=== PATIENT | female | born 1940 | race American Indian/Alaskan Native ===

== ENCOUNTER 2017-03-20 08:30 | Emergency (ER) | payer MEDICARE ==
[2017-03-20 10:01] VITALS: BP 164/79
[2017-03-20 10:07] LABS: Basophils % (Auto) 0.5 % (0.0-1.8); Eosinophils % (Auto) 3.1 % (0.0-4.3); Hematocrit 37.1 % (30.3-42.9); Mean Corpuscular HGB Conc 32 % (30-34); Mean Corpuscular Hemoglobin 28 pg (28-32); Mean Corpuscular Volume 87 fl (79-97); Platelet Count 300 K/mm3 (140-440); Red Blood Count 4.25 M/mm3 (3.65-5.03); Red Cell Distribution Width 15.2 % (13.2-15.2); White Blood Count 7.9 K/mm3 (4.5-11.0)
--- NOTE | 2017-03-20 10:15 | Emergency Department Report ---
HPI - General Chief Complaint: Fall Time Seen by Provider: 03/20/17 09:30 - HPI HPI: This is a 77-year-old Afro-[place] female presents emergency department by EMS from home with complaint of pain to the entire left side of her body. The patient was recently at [facility] where it appears that she was diagnosed with a stroke but had presented with similar complaints. The patient also says that she had a fall on Sunday, 4 days ago, while she was at her daughter's house. At that point she tripped or had some weakness going down stairs and fell about 6 stairs down. She does not offer up the complaint of headache, but when asked if she hurt her head at that time she says it has been hurting. She denies any vision change, slurred speech or any other obvious neurological deficits. She did not take anything for her symptoms prior to presentation. Her primary care doctor is Dr. Langley. She denies any shortness of breath, nausea, vomiting, fever. 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 Stimulation Implant Pump [place] [address] Coello for bowel control - Social History Smoking Status: Unknown if ever smoked Substance Use Type: None - Medications Home Medications: Home Medications Medication Instructions Recorded Confirmed Last Taken Type Pantoprazole [Protonix TAB] 40 mg PO QDAY 07/07/13 06/27/14 06/27/14 11:00 History Valsartan [Diovan] 320 mg PO QDAY 07/07/13 06/27/14 06/27/14 11:00 History glipiZIDE [glipiZIDE ER] 10 mg PO QDAY 07/07/13 06/27/14 06/27/14 11:00 History metFORMIN [Glucophage] 500 mg PO BID 07/07/13 06/27/14 06/27/14 11:00 History Aspirin [Aspirin TAB] 325 mg PO QDAY 10/08/13 06/27/14 06/27/14 11:00 History Chlorthalidone 25 mg PO QDAY 10/08/13 06/27/14 06/27/14 11:00 History Pravastatin Sodium 40 mg PO QDAY 10/08/13 06/27/14 06/27/14 11:00 History Venlafaxine [Effexor] 75 mg PO QDAY 10/08/13 06/27/14 06/27/14 11:00 History HYDROcodone/APAP 5-325 [[place] 1 each PO Q6HR PRN #20 tablet 10/13/13 06/27/14 11:00 Rx 5-325 mg TAB] Docusate Sodium [Colace] 100 mg PO BID PRN #20 capsule 06/28/14 Unknown Rx HYDROcodone/APAP 5-325 [[place] 1 each PO Q6HR PRN #20 tablet 06/28/14 Unknown Rx 5/325] ED Review of Systems ROS: Stated complaint: LT SIDE PAIN Other details as noted in HPI Comment: All other systems reviewed and negative Constitutional: denies: chills, fever Eyes: denies: eye pain, eye discharge, vision change ENT: denies: ear pain, throat pain Respiratory: denies: cough, shortness of breath Cardiovascular: denies: palpitations, edema Gastrointestinal: denies: abdominal pain, nausea, diarrhea Genitourinary: denies: urgency, dysuria, discharge Musculoskeletal: arthralgia, myalgia Skin: denies: rash, lesions Neurological: headache. denies: numbness Physical Exam - Physical Exam Vital Signs: Vital Signs 03/20/17 03/20/17 03/20/17 09:06 09:59 10:00 Temperature 100.0 F H 98.9 F Pulse Rate 74 74 Respiratory 20 16 16 Rate Blood Pressure 170/84 Blood Pressure 164/79 [Left] O2 Sat by Pulse 92 96 96 Oximetry Physical Exam: GENERAL: The patient is well-developed well-nourished. HEENT: Normocephalic. Atraumatic. Extraocular motions are intact. Patient has moist mucous membranes. Pupils equal reactive to light bilaterally. NECK: Supple. Trachea is midline. CHEST/LUNGS: Clear to auscultation. There is no respiratory distress noted. HEART/CARDIOVASCULAR: Regular. There is no tachycardia. There is no gallop rub or murmur. ABDOMEN: Abdomen is soft, nontender. Patient has normal bowel sounds. There is no abdominal distention. SKIN: Skin is warm and dry. NEURO: The patient is awake, alert, and oriented. The patient is cooperative. The patient has no focal neurologic deficits. The patient has normal speech. MUSCULOSKELETAL: Unable to reproduce patient's that arm and left leg tenderness to palpation. No obvious deformity. There is no limitation range of motion. There is no evidence of acute injury. Radial pulses +2 over 4 bilaterally. Cap refill less than 2 seconds. ED Course Vital Signs 03/20/17 03/20/17 03/20/17 09:06 09:59 10:00 Temperature 100.0 F H 98.9 F Pulse Rate 74 74 Respiratory 20 16 16 Rate Blood Pressure 170/84 Blood Pressure 164/79 [Left] O2 Sat by Pulse 92 96 96 Oximetry ED Medical Decision Making - Lab Data Result diagrams: 03/20/17 09:50 03/20/17 09:50 - Radiology Data Radiology results: report reviewed, image reviewed interpreted by me: Chest x-ray did not show any acute process. Heart is normal shape and size. No effusions. No pneumothorax. No signs of pneumonia seen. X-ray of the left humerus, left femur and left tib-fib do not show any fractures , dislocations or any acute processes. CT of the head does not show any acute process including no hemorrhage, mass, shift, diffuse edema or skull fracture. CT of the cervical spine does not show any fracture, subluxation or any acute process. - Medical Decision Making This is a 77-year-old female presents to the emergency department with complaint of left shoulder and arm pain as well as left leg pain. She denies any chest pain, shortness of breath, slurred speech or any neurological deficits. The patient does admit to a fall 4 days ago in which she hit her head but did not have any loss of consciousness. She complains of an occasional headache. A CT of the head and cervical spine were done that does not show any fracture, dislocation or any acute process. X-rays were done of the left humerus, left femur and left tib-fib but also did not show any acute process including no fracture, dislocation or any acute process. Labs were done that did not show any signs of leukocytosis, electrolyte abnormalities, renal insufficiency, glucose abnormalities. Urinalysis does not show any urinary tract infection. Negative troponin. The patient says that she walks with walker so she was given a walker and was able to ambulate around the emergency department without any instability. We spoke to the patient's son who is the DURABLE POWER OF RECREATION ATTENDANT SUPERVISOR. He says that the patient has been exhibiting some signs of dementia and he has the intent of getting her worked up to look into the cause of her dementia and possible Alzheimer's. He says that the police have told him and the patient's daughter that the patient should not be driving. The patient is used to being independent but they are doing what they can to keep her from driving as it is not safe and she does not appear to be dealing with this well. He does get her to all of her medical appointments and helps her to take care of errands that need to be run. He also says that the patient will sometimes act out at home and sometimes says she is unable to walk or move and then when she gets angry she will get up and storm out of the house. The patient herself says that she does not like living with her son as he will not give her car keys despite the fact that she says she does not want to drive. She also says that he brings home when the people and she has concern that they will "give away my bed." The case specialist was involved and also spoke with the patient's son. The son says that he lose his mother very much and has no intention of placing her in any intermediate or extended care facility at this time. He says he would like the patient to be sent back home to him and he will continue to care for her but he agrees to send her back to the emergency department with any acute distress. - Differential Diagnosis fracture, contusion, dementia, malingering, CVA Critical Care Time: No Critical care attestation.: If time is entered above; I have spent that time in minutes in the direct care of this critically ill patient, excluding procedure time. ED Disposition Clinical Impression: Left arm pain, Left leg pain Fall Qualifiers: Encounter type: initial encounter Qualified Code(s): W19.XXXA - Unspecified fall, initial encounter Left shoulder pain Qualifiers: Chronicity: acute Qualified Code(s): M25.512 - Pain in left shoulder Hypertension Qualifiers: Hypertension type: essential hypertension Qualified Code(s): I10 - Essential ( primary) hypertension Disposition: DISCHARGED TO HOME OR SELFCARE Is pt being admited?: No Condition: Stable Instructions: Hypertension (ED) Additional Instructions: Please follow-up with your primary care doctor in the next few days. I did do a referral for a local orthopedist, Dr. Bales, encase she would like to follow- up regarding your left arm and leg pains. Return to the emergency department with any worsening of her symptoms or any acute distress. Referrals: MICHAEL ALANIZ MD [Primary Care Provider] - 3-5 Days AMBROCIO BALES MD [Staff Physician] - 3-5 Days Time of Disposition: 14:03
[2017-03-20 10:29] LABS: Alanine Aminotransferase 11 units/L (7-56); Albumin 3.7 g/dL (3.9-5); Alkaline Phosphatase 77 units/L (35-129); Anion Gap 17 mmol/L; Blood Urea Nitrogen 10 mg/dL (7-17); Calcium 9.3 mg/dL (8.4-10.2); Carbon Dioxide 28 mmol/L (22-30); Chloride 97.4 mmol/L (98-107); Glucose 146 mg/dL (65-100); Potassium 3.8 mmol/L (3.6-5.0); Sodium 139 mmol/L (137-145); Total Protein 7.4 g/dL (6.3-8.2)
--- NOTE | 2017-03-20 10:39 | Cat Scan Report ---
CT scan of cervical spine: History: Fall. Findings: Normal height of vertebral bodies and intervertebral disc is sclerotic articular surfaces with osteophyte at C4-5, C5-C6 and C6-C7 suggestive cervical spondylosis. No evidence of acute fracture. Normal prevertebral soft tissue. Impression: Cervical spondylosis. No evidence of acute fracture. The
--- NOTE | 2017-03-20 10:41 | Cat Scan Report ---
CT scan of head without contrast: Compared to 06/28/14. History: Fall. Findings: Ventricles are normal in size and midline in location. Periventricular area of low attenuation. Bibasilar ganglia calcification. Focal area of low attenuation right basal ganglia suggestive of chronic lacunar infarct. No evidence of acute ischemia, hemorrhage or mass. No extra axial fluid collection. Normal brainstem and cerebellum. Normal sinuses and mastoid air cells. Impression: Small vessel ischemic changes. No acute intracranial abnormality.
--- NOTE | 2017-03-20 11:33 | XRay Report ---
LEFT TIBIA/FIBULA: History: Left leg pain. AP and lateral views of the left tibia/fibula demonstrate normal mineralization and contours for this patient's age. No destructive changes are noted and the adjacent soft tissues are normal. IMPRESSION: Normal left tibia/fibula.
--- NOTE | 2017-03-20 11:33 | XRay Report ---
AP CHEST: HISTORY: Chest pain and Mild cardiomegaly and borderline pulmonary venous congestion are identified. The lungs are generally clear. No evidence for pneumonia, CHF or pneumothorax. The bony structures are intact. IMPRESSION: Mild cardiomegaly.
--- NOTE | 2017-03-20 11:33 | XRay Report ---
LEFT HUMERUS: History: Left arm pain. AP and lateral views of the humerus demonstrate normal mineralization and contours for this patient's age. No destructive changes are noted and the adjacent soft tissues are normal. IMPRESSION: Normal left humerus.
--- NOTE | 2017-03-20 11:34 | XRay Report ---
LEFT FEMUR: History: Left leg pain. AP and lateral views of the femur demonstrate normal mineralization and contours for this patient's age. No destructive changes are noted and the adjacent soft tissues are normal. IMPRESSION: Normal left femur.
[2017-03-20] MEDS ORDERED: TORADOL IV ONE (11:42)
[2017-03-20 12:09] LABS: Bilirubin,Urine NEG (Negative); Blood,Urine NEG (Negative); Ketones,Urine NEG (Negative); Leukocyte Esterase,Urine NEG (Negative); Nitrite,Urine NEG (Negative); Protein,Urine <15 mg/dL mg/dL (Negative); Urobilinogen,Urine < 2.0 mg/dL (<2.0); WBC,Urine < 1.0 /HPF (0.0-6.0)
== END 2017-03-20 20:20 | disposition home or self-care (01) ==
LOC: ED 08:30
DX: M25.512 Pain in left shoulder (principal); M79.605 Pain in left leg; I10 Essential (primary) hypertension; M79.602 Pain in left arm; K21.9 Gastro-esophageal reflux disease without esophagitis; E11.9 Type 2 diabetes mellitus without complications; W10.8XXA Fall (on) (from) other stairs and steps, initial encounter; Y93.89 Activity, other specified; Y99.8 Other external cause status; Y92.89 Other specified places as the place of occurrence of the external cause; Z86.73 Personal history of transient ischemic attack (TIA), and cerebral infarction without residual deficits; J44.9 Chronic obstructive pulmonary disease, unspecified; Z90.710 Acquired absence of both cervix and uterus
CPT/HCPCS: 36415; 70450; 71010; 72125; 73060; 73552; 73590; 80053; 81001; 82553; 84443; 84484; 85025; 96374; 99285; J1885

== ENCOUNTER 2018-01-31 12:07 | Emergency (ER) | payer MEDICARE ==
[2018-01-31] MEDS ORDERED: ULTRAM PO ONE (14:00)
[2018-01-31 14:06] LABS: Hematocrit 37.7 % (30.3-42.9); Hemoglobin 12.5 gm/dl (10.1-14.3); Mean Corpuscular HGB Conc 33 % (30-34); Mean Corpuscular Hemoglobin 29 pg (28-32); Mean Corpuscular Volume 86 fl (79-97); Platelet Count 268 K/mm3 (140-440); Red Blood Count 4.38 M/mm3 (3.65-5.03); Red Cell Distribution Width 15.9 % (13.2-15.2)
--- NOTE | 2018-01-31 14:06 | Emergency Department Report ---
HPI - General Chief Complaint: Dizziness Time Seen by Provider: 01/31/18 13:46 - HPI HPI: Room 19 The patient is 78-year-old female presenting with chief complaint of fall. The patient states she fell out of bed this morning and now has pain of the left thigh. Patient denies loss of consciousness or headache. Family reported the patient complained of dizziness earlier. Patient denies any other complaints The patient's daughter arrives and provides further history. States the patient has had frequent intermittent outbursts which includes screaming in the morning and sometimes attempting to run out of the house. The daughter states she is requesting assistance with her mother's behavior Location: [See above] Duration: Constant since this morning Quality: Pain Severity: Moderate Modifying factors: [see above] Context: [see above] Mode of transportation: [not driving] ED Past Medical Hx - Past Medical History Hx Hypertension: Yes Hx CVA: Yes (1998) Hx Diabetes: Yes (Pt has had diabetes for more than 20 years.) Hx GERD: Yes Hx COPD: Yes Additional medical history: Bronchitis - Surgical History Hx Breast Surgery: Yes (BREAST REDUCTION IN 1994) Additional Surgical History: HYSTERECTOMY. Stimulation Implant Pump [place] [address] Coello for bowel control - Family History Family history: no significant - Social History Smoking Status: Never Smoker Substance Use Type: None - Medications Home Medications: Home Medications Medication Instructions Recorded Confirmed Last Taken Type Chlorthalidone 25 mg PO QDAY 10/08/13 06/27/14 06/27/14 11:00 History Pravastatin Sodium 40 mg PO QDAY 10/08/13 06/27/14 06/27/14 11:00 History Docusate Sodium [Colace CAP] 100 mg PO BID PRN #20 capsule 06/28/14 Unknown Rx Acetaminophen [Acetaminophen TAB] 650 mg PO Q4H PRN #30 tablet 03/28/17 Unknown Rx Aspirin [Aspirin TAB] 325 mg PO QDAY #30 03/28/17 06/27/14 06/27/14 11:00 Rx HYDROcodone/APAP 5-325 [[place] 1 each PO Q6HR PRN #20 tablet 03/28/17 Unknown Rx 5-325 mg TAB] Pantoprazole [Protonix TAB] 40 mg PO QDAY #30 03/28/17 06/27/14 06/27/14 11:00 Rx Valsartan [Diovan] 320 mg PO QDAY #30 03/28/17 06/27/14 06/27/14 11:00 Rx Venlafaxine [Effexor] 75 mg PO QDAY #30 03/28/17 06/27/14 06/27/14 11:00 Rx glipiZIDE [glipiZIDE ER] 10 mg PO QDAY #30 03/28/17 06/27/14 06/27/14 11:00 Rx metFORMIN [Glucophage] 500 mg PO BID #60 03/28/17 06/27/14 06/27/14 11:00 Rx LORazepam [Ativan] 0.5 mg PO BID PRN #10 tab 01/31/18 Unknown Rx ED Review of Systems ROS: Stated complaint: AMS Other details as noted in HPI Constitutional: denies: fever Musculoskeletal: arthralgia, myalgia Neurological: denies: headache Physical Exam - Physical Exam Vital Signs: Vital Signs 01/31/18 01/31/18 01/31/18 12:48 13:00 13:01 Temperature Pulse Rate 78 75 Respiratory 14 16 Rate Blood Pressure 148/71 [Right] O2 Sat by Pulse 92 100 100 Oximetry 01/31/18 01/31/18 13:04 13:19 Temperature 97.9 F Pulse Rate Respiratory 12 Rate Blood Pressure [Right] O2 Sat by Pulse 100 Oximetry Physical Exam: GENERAL: The patient is well-developed well-nourished female lying on stretcher not appearing to be in acute distress. [] HEENT: Normocephalic. Atraumatic. Extraocular motions are intact. Patient has moist mucous membranes. NECK: Supple. Trachea midline CHEST/LUNGS: Clear to auscultation. There is no respiratory distress noted. HEART/CARDIOVASCULAR: Regular. There is no tachycardia. There is no gallop rub or murmur. ABDOMEN: Abdomen is soft, nontender. Patient has normal bowel sounds. There is no abdominal distention. SKIN: There is no rash. There is no edema. There is no diaphoresis. NEURO: The patient is awake and alert. The patient is cooperative. The patient has residual left-sided weakness from previous CVA otherwise cranial nerves II through XII grossly intact. The patient has normal speech MUSCULOSKELETAL: There is tenderness to palpation of the left thigh and left lower leg ED Course Vital Signs 01/31/18 01/31/18 01/31/18 12:48 13:00 13:01 Temperature Pulse Rate 78 75 Respiratory 14 16 Rate Blood Pressure 148/71 [Right] O2 Sat by Pulse 92 100 100 Oximetry 01/31/18 01/31/18 13:04 13:19 Temperature 97.9 F Pulse Rate Respiratory 12 Rate Blood Pressure [Right] O2 Sat by Pulse 100 Oximetry - Consultations Consultation #1: 01/31/18 18:05 Case discussed with mental health rural health consultant (Angelique)- has discussed care with patient and patient's mother and patient given referral for the [facility] ED Medical Decision Making - Lab Data Result diagrams: 01/31/18 13:56 01/31/18 13:56 - Radiology Data Radiology results: report reviewed (CT head, CT cervical spine), image reviewed (CT head, CT cervical spine, left femur x-ray, left tib-fib x-ray) interpreted by me: Left femur x-ray-no acute fracture Left tib-fib x-ray-no acute fracture [facility] [address] [place] [address] Cat Scan Report Signed Patient: JEFF BLUNT MR#: [id number] : 1940 Acct:[id number] Age/Sex: 78 / F ADM Date: 01/31/18 Loc: ED Attending Dr: Ordering Physician: MYRNA LUCAS MD Date of Service: 01/31/18 Procedure(s): CT head/brain wo con Accession Number(s): [id number] cc: MYRNA LUCAS MD CT HEAD WITHOUT CONTRAST INDICATION: Dizziness, fall from bed. COMPARISON: March 2017. FINDINGS: Noncontrast head CT demonstrates stable, age-appropriate ventricles and sulci with moderate to severe periventricular and white matter hypodensities with few small ganglionic lacunar infarcts measuring up to 6 mm on the left on axial image 20, series 2. No definite acute infarct, hemorrhage, mass effect or midline shift. No abnormal extra axial fluid collections. Benign bilateral basal ganglia calcifications. Stable posterior fossa including a 4 mm lacunar infarct in the joaqu[place] on the right, axial image 15. Preserved basilar cisterns. Normal eye globes. Mild right frontal sinus mucosal thickening again noted. Clear remainder imaged paranasal sinuses and mastoid air cells. Intact calvarium. Normal scalp. Extensive atherosclerotic ICA and vertebral artery calcifications. Few missing teeth. CONCLUSION: No definite acute intracranial CT abnormality with stable age appropriate atrophy, extensive microvascular changes and other findings, as detailed above. Thank you for the opportunity to participate in this patient's care. Transcribed By: CHRISTEL Dictated By: LAZARO BROOKE MD Electronically Authenticated By: LAZARO BROOKE MD Signed Date/Time: 01/31/18 1504 DD/ 1458 TD/TT: 01/31/18 1504 [facility] [address] [place] [address] Cat Scan Report Signed Patient: JEFF BLUNT MR#: [id number] : 1940 Acct:[id number] Age/Sex: 78 / F ADM Date: 01/31/18 Loc: ED Attending Dr: Ordering Physician: MYRNA LUCAS MD Date of Service: 01/31/18 Procedure(s): CT cervical spine wo con Accession Number(s): [id number] cc: MYRNA LUCAS MD CT CERVICAL SPINE WITHOUT CONTRAST INDICATION: Fall from bed, dizziness. COMPARISON: 03/24/2017. FINDINGS: Noncontrast axial, sagittal and coronal CT reconstructions through the cervical spine demonstrate normal imaged posterior fossa. Intact craniocervical articulation, dens, prevertebral soft tissues and the posterior elements. Normal vertebral body stature alignment and disc heights. Mild degenerative spurring, more so from C4-C7. Assessment of the spinal canal itself compromised from C5 inferiorly due to artifact from shoulder soft tissues. No large disc protrusion. Normal thyroid. Mild bilateral upper lobe scarring. Possible osteopenia. Atherosclerotic vascular calcifications. CONCLUSION: No acute cervical spine CT abnormality with few other findings, as above. Please correlate. Thank you for the opportunity to participate in this patient's care. Transcribed By: RS Dictated By: LAZARO BROOKE MD Electronically Authenticated By: LAZARO BROOKE MD Signed Date/Time: 01/31/18 1509 DD/ 1505 TD/TT: 01/31/18 1509 - Differential Diagnosis closed head injury, hip fracture, hip contusion Critical care attestation.: If time is entered above; I have spent that time in minutes in the direct care of this critically ill patient, excluding procedure time. ED Disposition Clinical Impression: Dementia, Contusion of left thigh Disposition: DC-01 TO HOME OR SELFCARE Is pt being admited?: No Does the pt Need Aspirin: No Condition: Stable Instructions: Dementia (ED) Additional Instructions: Return to the emergency department immediately should you develop worsening symptoms, fever, inability to tolerate food or liquid or any other concerns. Prescriptions: LORazepam [Ativan] 0.5 mg PO BID PRN #10 tab PRN Reason: Agitation Referrals: PRIMARY CARE, [Primary Care Provider] - 3-5 Days [facility] [Other] - 3-5 Days Time of Disposition: 18:05
[2018-01-31 14:29] LABS: BUN/Creatinine Ratio 16; Blood Urea Nitrogen 11 mg/dL (7-17); Calcium 9.4 mg/dL (8.4-10.2); Hemolysis Index 13
--- NOTE | 2018-01-31 15:10 | Cat Scan Report ---
CT HEAD WITHOUT CONTRAST INDICATION: Dizziness, fall from bed. COMPARISON: March 2017. FINDINGS: Noncontrast head CT demonstrates stable, age-appropriate ventricles and sulci with moderate to severe periventricular and white matter hypodensities with few small ganglionic lacunar infarcts measuring up to 6 mm on the left on axial image 20, series 2. No definite acute infarct, hemorrhage, mass effect or midline shift. No abnormal extra axial fluid collections. Benign bilateral basal ganglia calcifications. Stable posterior fossa including a 4 mm lacunar infarct in the joaquín on the right, axial image 15. Preserved basilar cisterns. Normal eye globes. Mild right frontal sinus mucosal thickening again noted. Clear remainder imaged paranasal sinuses and mastoid air cells. Intact calvarium. Normal scalp. Extensive atherosclerotic ICA and vertebral artery calcifications. Few missing teeth. CONCLUSION: No definite acute intracranial CT abnormality with stable age appropriate atrophy, extensive microvascular changes and other findings, as detailed above. Thank you for the opportunity to participate in this patient's care.
--- NOTE | 2018-01-31 15:14 | Cat Scan Report ---
CT CERVICAL SPINE WITHOUT CONTRAST INDICATION: Fall from bed, dizziness. COMPARISON: 03/24/2017. FINDINGS: Noncontrast axial, sagittal and coronal CT reconstructions through the cervical spine demonstrate normal imaged posterior fossa. Intact craniocervical articulation, dens, prevertebral soft tissues and the posterior elements. Normal vertebral body stature alignment and disc heights. Mild degenerative spurring, more so from C4-C7. Assessment of the spinal canal itself compromised from C5 inferiorly due to artifact from shoulder soft tissues. No large disc protrusion. Normal thyroid. Mild bilateral upper lobe scarring. Possible osteopenia. Atherosclerotic vascular calcifications. CONCLUSION: No acute cervical spine CT abnormality with few other findings, as above. Please correlate. Thank you for the opportunity to participate in this patient's care.
[2018-01-31 17:50] VITALS: BP 149/79
--- NOTE | 2018-01-31 18:25 | XRay Report ---
FINAL REPORT EXAM: XR FEMUR 2+V LT HISTORY: pain after fall TECHNIQUE: AP and lateral portable views of the left femur PRIORS: None. FINDINGS: There is no evidence for acute fracture or dislocation. No soft tissue swelling or radiopaque foreign bodies are seen. Vascular calcification in the posterior soft tissues is noted. Bony mineralization is normal and joint spaces are maintained. Large spurs are present anteriorly off the superior and inferior patella. IMPRESSION: No acute bony or soft tissue abnormality noted. Extensive spurs off the anterior aspect of the patella.
--- NOTE | 2018-01-31 18:26 | XRay Report ---
FINAL REPORT EXAM: XR TIBIA FIBULA 2V LT HISTORY: pain after fall TECHNIQUE: AP and lateral portable views of the left tibia and fibula PRIORS: None. FINDINGS: There is no evidence for acute fracture or dislocation. No soft tissue swelling or radiopaque foreign bodies are seen. Vascular calcifications in the posterior soft tissues are noted. Bony mineralization is normal and joint spaces are maintained. Large spurs are present off the anterior aspect of the patella and off the posterior and plantar aspects of the calcaneus. IMPRESSION: No acute bony or soft tissue abnormality noted.
== END 2018-01-31 18:25 | disposition home or self-care (01) ==
LOC: ED 12:07
DX: S70.12XA Contusion of left thigh, initial encounter (principal); W18.30XA Fall on same level, unspecified, initial encounter; Y93.89 Activity, other specified; Y92.89 Other specified places as the place of occurrence of the external cause; Y99.8 Other external cause status; I10 Essential (primary) hypertension; K21.9 Gastro-esophageal reflux disease without esophagitis; J44.9 Chronic obstructive pulmonary disease, unspecified
CPT/HCPCS: 36415; 70450; 72125; 80048; 85027

== ENCOUNTER 2018-04-25 23:30 | Inpatient (IN) | payer MEDICARE ==
[2018-04-26 01:39] LABS: Basophils # (Auto) 0.1 K/mm3 (0.0-0.1); Basophils % (Auto) 0.6 % (0.0-1.8); Eosinophils # (Auto) 0.3 K/mm3 (0.0-0.4); Eosinophils % (Auto) 2.7 % (0.0-4.3); Hematocrit 40.8 % (30.3-42.9); Hemoglobin 13.1 gm/dl (10.1-14.3); Lymphocytes # (Auto) 2.7 K/mm3 (1.2-5.4); Lymphocytes % (Auto) 28.2 % (13.4-35.0); Mean Corpuscular HGB Conc 32 % (30-34); Mean Corpuscular Hemoglobin 29 pg (28-32); Mean Corpuscular Volume 90 fl (79-97); Monocytes # (Auto) 0.8 K/mm3 (0.0-0.8); Platelet Count 271 K/mm3 (140-440); Red Blood Count 4.52 M/mm3 (3.65-5.03); Red Cell Distribution Width 16.3 % (13.2-15.2)
[2018-04-26 01:52] LABS: Albumin 3.9 g/dL (3.9-5); Calcium 9.8 mg/dL (8.4-10.2)
[2018-04-26] MEDS ORDERED: NACL 0.9% 500 ML 500 ML IV ONE (02:20)
--- NOTE | 2018-04-26 02:28 | Emergency Department Report ---
ED Altered Mental Status HPI - General Chief Complaint: Altered Mental Status Stated Complaint: STOP DRINKING & EATING Time Seen by Provider: 04/26/18 02:12 Source: patient Mode of arrival: Ambulatory Limitations: No Limitations - History of Present Illness Initial Comments: Mrs. Reddy is 78 yo female with hx of dementia, HTN and DM who presents with AMS and failure to thrive. She has not eaten or drank fluids in 1-2 days. Her demeanor has changed. She is agitated. She normal y speaks. She is now nonverbal. She has had multiple changes to her medications. Recently stopped lorazepam. Daughter feels that gabapentin 300 mg BID is too much medicine. Patiet is normally able to have a fluid conversation which is corroborated by daughter at the bedside. It is also corroborated by a recent ED encounter. MD Complaint: altered mental status -: Gradual, days(s) (2) Severity: moderate Consistency of Symptoms: getting worse Context: change in medication Associated Symptoms: loss of appetite - Related Data Home Medications Medication Instructions Recorded Confirmed Last Taken Chlorthalidone 25 mg PO QDAY 10/08/13 03/11/18 06/27/14 11:00 Pravastatin Sodium 40 mg PO QDAY 10/08/13 03/11/18 06/27/14 11:00 Previous Rx's Medication Instructions Recorded Last Taken Type Docusate Sodium [Colace CAP] 100 mg PO BID PRN #20 capsule 06/28/14 Unknown Rx Acetaminophen [Acetaminophen TAB] 650 mg PO Q4H PRN #30 tablet 03/28/17 Unknown Rx Aspirin [Aspirin TAB] 325 mg PO QDAY #30 03/28/17 06/27/14 11:00 Rx Pantoprazole [Protonix TAB] 40 mg PO QDAY #30 03/28/17 06/27/14 11:00 Rx Valsartan [Diovan] 320 mg PO QDAY #30 03/28/17 06/27/14 11:00 Rx Venlafaxine [Effexor] 75 mg PO QDAY #30 03/28/17 06/27/14 11:00 Rx glipiZIDE [glipiZIDE ER] 10 mg PO QDAY #30 03/28/17 06/27/14 11:00 Rx metFORMIN [Glucophage] 500 mg PO BID #60 03/28/17 06/27/14 11:00 Rx LORazepam [Ativan] 0.5 mg PO BID PRN #10 tab 01/31/18 Unknown Rx LORazepam [Ativan] 0.5 mg PO BID #20 tab 03/11/18 Unknown Rx LORazepam [Ativan] 0.5 mg PO BID PRN #60 tablet 03/11/18 Unknown Rx Allergies Allergy/AdvReac Type Severity Reaction Status Date / Time prednisone Allergy Intermediate Swelling Verified 07/07/13 07:21 codeine Allergy Mild Itching Verified 07/07/13 07:21 ED Review of Systems ROS: Stated complaint: STOP DRINKING & EATING Other details as noted in HPI Comment: Unobtainable due to pts medical conditions ED Past Medical Hx - Past Medical History Previous Medical History?: Yes Hx Hypertension: Yes Hx CVA: Yes (1998) Hx Heart Attack/AMI: No Hx Congestive Heart Failure: No Hx Diabetes: Yes (Pt has had diabetes for more than 20 years.) Hx Deep Vein Thrombosis: No Hx Pulmonary Embolism: No Hx GERD: Yes Hx Liver Disease: No Hx Renal Disease: No Hx Sickle Cell Disease: No Hx Arthritis: No Hx Headaches / Migraines: No Hx Seizures: No Hx Kidney Stones: No Hx Psychiatric Treatment: No Hx Asthma: No Hx COPD: Yes Hx Tuberculosis: No Hx Dementia: No Hx HIV: No Additional medical history: Bronchitis - Surgical History Hx Coronary Stent: No Hx Open Heart Surgery: No Hx Pacemaker: No Hx Internal Defibrillator: No Hx Cholecystectomy: No Hx Appendectomy: No Hx Breast Surgery: Yes (BREAST REDUCTION IN 1994) Additional Surgical History: HYSTERECTOMY. Stimulation Implant Pump [place] [address] Coello for bowel control - Social History Smoking Status: Former Smoker Substance Use Type: None - Medications Home Medications: Home Medications Medication Instructions Recorded Confirmed Last Taken Type Chlorthalidone 25 mg PO QDAY 10/08/13 03/11/18 06/27/14 11:00 History Pravastatin Sodium 40 mg PO QDAY 10/08/13 03/11/18 06/27/14 11:00 History Docusate Sodium [Colace CAP] 100 mg PO BID PRN #20 capsule 06/28/14 03/11/18 Unknown Rx Acetaminophen [Acetaminophen TAB] 650 mg PO Q4H PRN #30 tablet 03/28/17 Unknown Rx Aspirin [Aspirin TAB] 325 mg PO QDAY #30 03/28/17 03/11/18 06/27/14 11:00 Rx Pantoprazole [Protonix TAB] 40 mg PO QDAY #30 03/28/17 03/11/18 06/27/14 11:00 Rx Valsartan [Diovan] 320 mg PO QDAY #30 03/28/17 03/11/18 06/27/14 11:00 Rx Venlafaxine [Effexor] 75 mg PO QDAY #30 03/28/17 03/11/18 06/27/14 11:00 Rx glipiZIDE [glipiZIDE ER] 10 mg PO QDAY #30 03/28/17 03/11/18 06/27/14 11:00 Rx metFORMIN [Glucophage] 500 mg PO BID #60 03/28/17 03/11/18 06/27/14 11:00 Rx LORazepam [Ativan] 0.5 mg PO BID PRN #10 tab 01/31/18 03/11/18 Unknown Rx LORazepam [Ativan] 0.5 mg PO BID #20 tab 03/11/18 Unknown Rx LORazepam [Ativan] 0.5 mg PO BID PRN #60 tablet 03/11/18 Unknown Rx ED Physical Exam - General Limitations: No Limitations, Altered Mental Status General appearance: alert, in no apparent distress - Head Head exam: Present: atraumatic, normocephalic - Eye Eye exam: Present: other (patient clinches eye closed, eyes are spontaneously open when she is not being examined) - ENT ENT exam: Present: normal orophraynx - Neck Neck exam: Present: normal inspection. Absent: tenderness, meningismus - Respiratory Respiratory exam: Present: normal lung sounds bilaterally. Absent: respiratory distress, wheezes, rales, rhonchi - Cardiovascular Cardiovascular Exam: Present: regular rate, normal rhythm, normal heart sounds. Absent: bradycardia, tachycardia - GI/Abdominal GI/Abdominal exam: Present: soft. Absent: distended, tenderness, guarding, rebound - Extremities Exam Extremities exam: Present: normal inspection, full ROM. Absent: pedal edema - Neurological Exam Neurological exam: Present: alert, altered - Psychiatric Psychiatric exam: Present: flat affect - Skin Skin exam: Present: warm, dry, intact, normal color ED Course Vital Signs 04/25/18 04/26/18 04/26/18 23:37 01:06 02:13 Temperature 97.7 F 97.7 F Pulse Rate 82 80 80 Respiratory 14 14 10 L Rate Blood Pressure 102/59 102/59 O2 Sat by Pulse 100 96 Oximetry 04/26/18 04/26/18 04/26/18 02:15 02:20 02:30 Temperature Pulse Rate 78 75 Respiratory 16 18 20 Rate Blood Pressure 116/65 112/61 O2 Sat by Pulse 100 98 Oximetry 04/26/18 02:45 Temperature Pulse Rate 78 Respiratory 17 Rate Blood Pressure 106/56 O2 Sat by Pulse Oximetry - Lab Data Result diagrams: 04/26/18 01:21 04/26/18 01:21 Lab Results 04/26/18 04/26/18 04/26/18 Range/Units 01:21 01:21 02:37 WBC 9.4 (4.5-11.0) K/mm3 RBC 4.52 (3.65-5.03) M/mm3 Hgb 13.1 (10.1-14.3) gm/dl Hct 40.8 (30.3-42.9) % MCV 90 (79-97) fl MCH 29 (28-32) pg MCHC 32 (30-34) % RDW 16.3 H (13.2-15.2) % Plt Count 271 (140-440) K/mm3 Lymph % (Auto) 28.2 (13.4-35.0) % [place] % (Auto) 8.0 H (0.0-7.3) % Eos % (Auto) 2.7 (0.0-4.3) % Baso % (Auto) 0.6 (0.0-1.8) % Lymph # 2.7 (1.2-5.4) K/mm3 [place] # 0.8 (0.0-0.8) K/mm3 Eos # 0.3 (0.0-0.4) K/mm3 Baso # 0.1 (0.0-0.1) K/mm3 Seg Neutrophils % 60.5 (40.0-70.0) % Seg Neutrophils # 5.7 (1.8-7.7) K/mm3 Sodium 144 (137-145) mmol/L Potassium 4.9 (3.6-5.0) mmol/L Chloride 103.8 (98-107) mmol/L Carbon Dioxide 25 (22-30) mmol/L Anion Gap 20 mmol/L BUN 42 H (7-17) mg/dL Creatinine 1.8 H (0.7-1.2) mg/dL Estimated GFR 33 ml/min BUN/Creatinine Ratio 23 % Glucose 79 (65-100) mg/dL Lactic Acid 1.00 (0.7-2.0) mmol/L Calcium 9.8 (8.4-10.2) mg/dL Total Bilirubin 0.20 (0.1-1.2) mg/dL AST 17 (5-40) units/L ALT 10 (7-56) units/L Alkaline Phosphatase 60 (35-129) units/L Total Creatine Kinase (30-135) units/L Troponin T (0.00-0.029) ng/mL Total Protein 7.1 (6.3-8.2) g/dL Albumin 3.9 (3.9-5) g/dL Albumin/Globulin Ratio 1.2 % Triglycerides (2-149) mg/dL Cholesterol (50-199) mg/dL LDL Cholesterol Direct (50-130) mg/dL HDL Cholesterol (40-59) mg/dL Cholesterol/HDL Ratio % TSH (0.270-4.200) mlU/mL Urine Color (Yellow) Urine Turbidity (Clear) Urine pH (5.0-7.0) Ur Specific [place] (1.003-1.030) Urine Protein (Negative) mg/dL Urine Glucose (UA) (Negative) mg/dL Urine Ketones (Negative) mg/dL Urine Blood (Negative) Urine Nitrite (Negative) Urine Bilirubin (Negative) Urine Urobilinogen (<2.0) mg/dL Ur Leukocyte Esterase (Negative) Urine WBC (Auto) (0.0-6.0) /HPF Urine RBC (Auto) (0.0-6.0) /HPF U Epithel Cells (Auto) (0-13.0) /HPF Urine Mucus /HPF Urine Opiates Screen Urine Methadone Screen Ur Barbiturates Screen Ur Phencyclidine Scrn Ur Amphetamines Screen U Benzodiazepines Scrn Urine Cocaine Screen U Marijuana (THC) Screen Drugs of Abuse Note 04/26/18 04/26/18 04/26/18 Range/Units 02:37 02:37 02:56 WBC (4.5-11.0) K/mm3 RBC (3.65-5.03) M/mm3 Hgb (10.1-14.3) gm/dl Hct (30.3-42.9) % MCV (79-97) fl MCH (28-32) pg MCHC (30-34) % RDW (13.2-15.2) % Plt Count (140-440) K/mm3 Lymph % (Auto) (13.4-35.0) % [place] % (Auto) (0.0-7.3) % Eos % (Auto) (0.0-4.3) % Baso % (Auto) (0.0-1.8) % Lymph # (1.2-5.4) K/mm3 [place] # (0.0-0.8) K/mm3 Eos # (0.0-0.4) K/mm3 Baso # (0.0-0.1) K/mm3 Seg Neutrophils % (40.0-70.0) % Seg Neutrophils # (1.8-7.7) K/mm3 Sodium (137-145) mmol/L Potassium (3.6-5.0) mmol/L Chloride (98-107) mmol/L Carbon Dioxide (22-30) mmol/L Anion Gap mmol/L BUN (7-17) mg/dL Creatinine (0.7-1.2) mg/dL Estimated GFR ml/min BUN/Creatinine Ratio % Glucose (65-100) mg/dL Lactic Acid (0.7-2.0) mmol/L Calcium (8.4-10.2) mg/dL Total Bilirubin (0.1-1.2) mg/dL AST (5-40) units/L ALT (7-56) units/L Alkaline Phosphatase (35-129) units/L Total Creatine Kinase 148 H (30-135) units/L Troponin T 0.048 H (0.00-0.029) ng/mL Total Protein (6.3-8.2) g/dL Albumin (3.9-5) g/dL Albumin/Globulin Ratio % Triglycerides 127 (2-149) mg/dL Cholesterol 148 (50-199) mg/dL LDL Cholesterol Direct 81 (50-130) mg/dL HDL Cholesterol 49 (40-59) mg/dL Cholesterol/HDL Ratio 3.02 % TSH 4.960 H (0.270-4.200) mlU/mL Urine Color Yellow (Yellow) Urine Turbidity Hazy (Clear) Urine pH 5.0 (5.0-7.0) Ur Specific [place] 1.021 (1.003-1.030) Urine Protein 30 mg/dl (Negative) mg/dL Urine Glucose (UA) Neg (Negative) mg/dL Urine Ketones Tr (Negative) mg/dL Urine Blood Neg (Negative) Urine Nitrite Neg (Negative) Urine Bilirubin Neg (Negative) Urine Urobilinogen 2.0 (<2.0) mg/dL Ur Leukocyte Esterase Tr (Negative) Urine WBC (Auto) 6.0 (0.0-6.0) /HPF Urine RBC (Auto) 1.0 (0.0-6.0) /HPF U Epithel Cells (Auto) 13.0 (0-13.0) /HPF Urine Mucus 3+ /HPF Urine Opiates Screen Urine Methadone Screen Ur Barbiturates Screen Ur Phencyclidine Scrn Ur Amphetamines Screen U Benzodiazepines Scrn Urine Cocaine Screen U Marijuana (THC) Screen Drugs of Abuse Note 04/26/18 Range/Units 02:56 WBC (4.5-11.0) K/mm3 RBC (3.65-5.03) M/mm3 Hgb (10.1-14.3) gm/dl Hct (30.3-42.9) % MCV (79-97) fl MCH (28-32) pg MCHC (30-34) % RDW (13.2-15.2) % Plt Count (140-440) K/mm3 Lymph % (Auto) (13.4-35.0) % [place] % (Auto) (0.0-7.3) % Eos % (Auto) (0.0-4.3) % Baso % (Auto) (0.0-1.8) % Lymph # (1.2-5.4) K/mm3 [place] # (0.0-0.8) K/mm3 Eos # (0.0-0.4) K/mm3 Baso # (0.0-0.1) K/mm3 Seg Neutrophils % (40.0-70.0) % Seg Neutrophils # (1.8-7.7) K/mm3 Sodium (137-145) mmol/L Potassium (3.6-5.0) mmol/L Chloride (98-107) mmol/L Carbon Dioxide (22-30) mmol/L Anion Gap mmol/L BUN (7-17) mg/dL Creatinine (0.7-1.2) mg/dL Estimated GFR ml/min BUN/Creatinine Ratio % Glucose (65-100) mg/dL Lactic Acid (0.7-2.0) mmol/L Calcium (8.4-10.2) mg/dL Total Bilirubin (0.1-1.2) mg/dL AST (5-40) units/L ALT (7-56) units/L Alkaline Phosphatase (35-129) units/L Total Creatine Kinase (30-135) units/L Troponin T (0.00-0.029) ng/mL Total Protein (6.3-8.2) g/dL Albumin (3.9-5) g/dL Albumin/Globulin Ratio % Triglycerides (2-149) mg/dL Cholesterol (50-199) mg/dL LDL Cholesterol Direct (50-130) mg/dL HDL Cholesterol (40-59) mg/dL Cholesterol/HDL Ratio % TSH (0.270-4.200) mlU/mL Urine Color (Yellow) Urine Turbidity (Clear) Urine pH (5.0-7.0) Ur Specific [place] (1.003-1.030) Urine Protein (Negative) mg/dL Urine Glucose (UA) (Negative) mg/dL Urine Ketones (Negative) mg/dL Urine Blood (Negative) Urine Nitrite (Negative) Urine Bilirubin (Negative) Urine Urobilinogen (<2.0) mg/dL Ur Leukocyte Esterase (Negative) Urine WBC (Auto) (0.0-6.0) /HPF Urine RBC (Auto) (0.0-6.0) /HPF U Epithel Cells (Auto) (0-13.0) /HPF Urine Mucus /HPF Urine Opiates Screen Presumptive negative Urine Methadone Screen Presumptive negative Ur Barbiturates Screen Presumptive negative Ur Phencyclidine Scrn Presumptive positive Ur Amphetamines Screen Presumptive positive U Benzodiazepines Scrn Presumptive negative Urine Cocaine Screen Presumptive negative U Marijuana (THC) Screen Presumptive negative Drugs of Abuse Note Disclamer - EKG Data -: EKG Interpreted by [facility] EKG shows normal: sinus rhythm, axis, intervals, QRS complexes, ST-T waves Rate: normal 04/26/18 03:52 No signs of pericarditis. No signs of Of ischemia no ST elevation rate 80 bpm - Radiology Data Radiology results: report reviewed Chest x-ray without acute process, CT head without acute process. - Medical Decision Making Mrs. Reddy presents with AMS and failure to thrive. GOLDEN is evident. DDX: Uremic metabolic encephalopathy, medication-induced delirium, infection, CVA, progression of dementia Admitted to Hospital service in stable condition. Critical care attestation.: If time is entered above; I have spent that time in minutes in the direct care of this critically ill patient, excluding procedure time. ED Disposition Clinical Impression: Encephalopathy acute, Acute kidney injury Disposition: OP ADMIT IP TO THIS HOSP Is pt being admited?: Yes Does the pt Need Aspirin: No Condition: Stable Referrals: SCOTTIE LR MD [Primary Care Provider] - 3-5 Days Time of Disposition: 03:20
--- NOTE | 2018-04-26 02:53 | XRay Report ---
FINAL REPORT PROCEDURE: XR CHEST 1V AP TECHNIQUE: Chest radiograph anteroposterior view. CPT 19903 HISTORY: Altered Mental Status COMPARISON: 03/10/2018 FINDINGS: Heart: Normal. Mediastinum/Vessels: Normal. Lungs/Pleural space: Mild chronic changes. No consolidation, effusion or pneumothorax. Bony thorax: No acute osseous abnormality. Life support devices: None. IMPRESSION: There is no evidence of an acute cardiopulmonary process. Mild chronic pulmonary changes..
[2018-04-26 03:16] LABS: Benzodiazepines Screen,Urine PRESUMPTIVE NEGATIVE; Cannabinoid Screen,Urine PRESUMPTIVE NEGATIVE; Cocaine Screen,Urine PRESUMPTIVE NEGATIVE; Methadone Screen,Urine PRESUMPTIVE NEGATIVE; Opiate Screen,Urine PRESUMPTIVE NEGATIVE
--- NOTE | 2018-04-26 03:18 | Cat Scan Report ---
FINAL REPORT PROCEDURE: CT HEAD/BRAIN WO CON TECHNIQUE: Computerized tomography of the head was performed without contrast material. HISTORY: Altered Mental Status COMPARISON: 01/31/2018 FINDINGS: Skull and scalp: Normal. Paranasal sinuses: Normal. Ventricles and subarachnoid spaces: Normal. Cerebrum: There is no evidence of acute intracranial hemorrhage, hematoma, infarction, midline displacement or mass. There is moderate atrophy and periventricular deep white matter change. Benign calcifications are identified in both basal ganglia. Cerebellum and brainstem: No evidence of hemorrhage, acute infarction or mass. Vasculature: Normal. Comments: None. IMPRESSION: There is no evidence of an acute intracranial process. Moderate atrophy and periventricular deep white matter change.
[2018-04-26 03:19] LABS: Bilirubin,Urine NEG (Negative); Blood,Urine NEG (Negative); Color,Urine Yellow (Yellow); Mucus,Urine 3+ /HPF
[2018-04-26 03:31] LABS: Amphetamine Screen,Urine PRESUMPTIVE POSITIVE
[2018-04-26 03:38] LABS: Chol/HDL Ratio 3.02 %
[2018-04-26] MEDS ORDERED: TYLENOL PO PRN (04:20)
[2018-04-26] MEDS ORDERED: D50W (25GM) Syringe IV PRN (04:23)
[2018-04-26] MEDS ORDERED: NACL 0.9% 1000 ML 1,000 ML IV SCH (05:00)
[2018-04-26 07:13] LABS: Creatine Kinase MB TNR ng/mL (0.0-4.0); Hemolysis Index TNR
[2018-04-26 07:14] LABS: BUN/Creatinine Ratio TNR; Blood Urea Nitrogen TNR mg/dL (7-17); Calcium TNR mg/dL (8.4-10.2)
[2018-04-26] MEDS: HumuLIN R SUB-Q SCH ×3 (07:46→16:32)
[2018-04-26 08:08] LABS: Creatine Kinase MB 3.1 ng/mL (0.0-4.0)
[2018-04-26 08:09] LABS: Calcium 9.7 mg/dL (8.4-10.2)
[2018-04-26] MEDS: HEPARIN SUB-Q SCH ×2 (09:27→22:00)
[2018-04-26] MEDS: PROTONIX PO SCH (09:38)
[2018-04-26] MEDS: PRAVACHOL PO SCH ×2 (09:39→22:00)
[2018-04-26 09:46] LABS: Albumin 3.5 g/dL (3.9-5); Calcium 10.1 mg/dL (8.4-10.2)
[2018-04-26] MEDS ORDERED: ASPIRIN PO SCH (10:00)
[2018-04-26] MEDS ORDERED: THALITONE PO SCH (10:00)
[2018-04-26] MEDS ORDERED: EFFEXOR PO SCH (10:00)
[2018-04-26] MEDS ORDERED: DIOVAN PO SCH (10:00)
[2018-04-26] MEDS ORDERED: COLACE PO PRN (10:00)
[2018-04-26] MEDS ORDERED: NON-FORMULARY (Valsartan [Diovan] 320 MG) PO SCH (10:00)
[2018-04-26] MEDS ORDERED: ATIVAN PO PRN ×2 (10:00→22:00)
--- NOTE | 2018-04-26 10:04 | History and Physical Report ---
CHIEF COMPLAINT: Change in mental status. HISTORY OF PRESENT ILLNESS: The patient is a 78-year-old female with known history of dementia who was noted by family to stop eating and drinking fluids for about 1-2 days prior to presentation and the patient was also noted to have change in mental status and became noncommunicative and nonverbal. The patient used to talk collaboratively with the family members and ____ she stopped eating and drinking. The patient has not been communicating and feels weak. The daughter said that the patient's medications were recently changed but seemed to have some concern about the patient taking gabapentin. There is no history of fever or chills. No history of chest pain. No history of nausea and vomiting. The patient was evaluated and presented for admission. PAST MEDICAL HISTORY: Pertinent for hypertension, cerebrovascular accident. Also the patient has past history of diabetes mellitus, gastroesophageal reflux disease, COPD, bronchitis. PAST SURGICAL HISTORY: Pertinent for breast reduction surgery, hysterectomy, stimulation implant ____ for bowel control. FAMILY HISTORY: Noncontributory. SOCIAL HISTORY: The patient is a former cigarette smoker, but does not smoke currently, does not drink alcohol. Family denied use of illicit drugs; however, the patient's urine drug screen tested positive to amphetamine and phencyclidine. MEDICATIONS: The patient is on chlorthalidone 25 mg by mouth daily, pravastatin 40 mg by mouth daily, Colace 100 mg by mouth twice daily, Tylenol 650 mg by mouth every 4 hours a day for fever and headache, aspirin 325 mg daily, pantoprazole 40 mg by mouth daily, Diovan 320 mg by mouth daily, Effexor 75 mg by mouth daily, glipizide 10 mg by mouth daily, metformin 500 mg by mouth twice daily, and lorazepam 0.5 mg by mouth twice daily. ALLERGIES: The patient is allergic to prednisone and codeine. REVIEW OF SYSTEMS: CONSTITUTIONAL: There is no fever, no chills, no diaphoresis. HEENT: There is no headache or sore throat. CARDIOVASCULAR SYSTEM: There is no chest pain or orthopnea. RESPIRATORY SYSTEM: There is no shortness of breath or cough. GASTROINTESTINAL SYSTEM: There is no nausea, no vomiting, no abdominal pain, diarrhea or constipation. There is poor oral intake of food or fluids. NEUROLOGICAL SYSTEM: There is altered mental status with no numbness, no dizziness. MUSCULOSKELETAL SYSTEM: There is no joint pain or swelling. DERMATOLOGICAL SYSTEM: There is no skin rash or itching. GENITOURINARY SYSTEM: There is no dysuria, hematuria, or flank pain. Rest of system review is normal. PHYSICAL EXAMINATION: GENERAL: At the time of exam; the patient was found to be alert, oriented to person, noncommunicative and not in acute distress. VITAL SIGNS: Shows normal temperature, pulse of 78, respirations 17, blood pressure 106/56, and O2 sat of 98% on room air. HEENT: Shows pupils to be equal, round, reactive to light and accommodative. Extraocular muscles are intact. Oral mucosa looks dry. NECK: Supple with no JVD or carotid bruit. CARDIOVASCULAR SYSTEM: Show normal first and second heart sounds with no gallops or murmurs. RESPIRATORY SYSTEM: Showed good air entry on both sides of the lung with no abnormal breath sounds. GASTROINTESTINAL SYSTEM: Show abdomen to be full, soft, nontender with no organomegaly or rigidity. NEUROLOGICAL: Shows the patient to be alert and noncommunicative treated with no new focal neurological deficits. MUSCULOSKELETAL SYSTEM: Show no joint swelling or tenderness. DERMATOLOGICAL SYSTEM: Show no skin rash. GENITOURINARY: Showing no costovertebral angle tenderness. PERTINENT LABORATORY AND IMAGING STUDIES: The patient has CBC done that was unremarkable. The patient's chemistry showed elevated BUN of 42 with elevated creatinine of 1.8 and the patient's troponin level was high with a value of 0.048. The patient's TSH level was high with a value of 4.9. The patient's urine drug screen is positive for amphetamine and phencyclidine. IMAGING STUDIES: The patient has CT of the head without contrast done that shows no evidence of acute intracranial process. There is finding of moderate atrophy and periventricular deep white matter changes. The patient also has chest x-ray done and chest x-ray showed that there is no evidence of any acute cardiopulmonary process. There is finding of mild chronic pulmonary changes. DIAGNOSES: 1. Altered mental status. 2. Failure to thrive. 3. Acute kidney injury. 4. Abnormal lab result with elevated troponin and elevated TSH level. PLAN: 1. The patient will be admitted to medical floor. 2. The patient will be on IV normal saline at 75 mL an hour. 3. The patient will have cardiac enzymes; troponin, total CPK, and CK-MB checked every 6 hours x 2 more level. The patient will have free thyroxine level checked this morning. 4. The patient will have basic metabolic panel also checked this morning and will be on consistent carbohydrate diet with low-sodium or 2-g sodium diet. 5. The patient will be on Accu-Chek before meals and at bedtime followed by low-dose sliding scale using regular insulin coverage. 5. The patient will be on Tylenol 650 mg by mouth every 4 hours for fever and headache. 6. The patient will have a Nephrology consult with ____ for the acute kidney injury evaluation. 7. DVT prophylaxis will be through heparin 5000 units subcutaneously q.12h.. 8. The patient's home medications will be applied as shown in the medication reconciliation section. JOB# [id number] [facility]
--- NOTE | 2018-04-26 10:34 | Consultation ---
History of Present Illness - Reason for Consult Consult date: 04/26/18 acute renal failure - History of Present Illness Ms Reddy is a 78 y/o F with a PMH of HTN, HLD, DM2, Dementia, Anxiety who has been admitted to the [facility] with altered mental status as well as failure to thrive. Pt has had poor appetite and has not eaten in 1-2 days. Pt was found to have GOLDEN and hyperkalemia on labs in the ER. Her K level is 5.3. Her Cr is also elevated compared to her last baseline. ROS: Unable to obtain due to confusion. PMH: HTN, HLD, DM2, Dementia, Anxiety PSH: Hysterectomy Family History: [place] SH: Former smoker Medications and Allergies Allergies Allergy/AdvReac Type Severity Reaction Status Date / Time prednisone Allergy Intermediate Swelling Verified 07/07/13 07:21 codeine Allergy Mild Itching Verified 07/07/13 07:21 Home Medications Medication Instructions Recorded Confirmed Last Taken Type Acetaminophen [Acetaminophen TAB] 650 mg PO Q4H PRN #30 tablet 03/28/17 Unknown Rx Pantoprazole [Protonix TAB] 40 mg PO QDAY #30 03/28/17 04/26/18 06/27/14 11:00 Rx metFORMIN [Glucophage] 500 mg PO BID #60 03/28/17 04/26/18 06/27/14 11:00 Rx AtorvaSTATin [Lipitor] 40 mg PO HS 04/26/18 04/26/18 Unknown History Budesonide/Formoterol Fumarate 2 puff INHALATION BID 04/26/18 04/26/18 Unknown History [Symbicort 160-4.5 Mcg Inhaler] Citalopram [Celexa] 20 mg PO DAILY 04/26/18 04/26/18 Unknown History Donepezil [Aricept] 5 mg PO HS 04/26/18 04/26/18 Unknown History Gabapentin [Neurontin] 300 mg PO HS 04/26/18 04/26/18 Unknown History Glipizide 5 mg PO DAILY 04/26/18 04/26/18 Unknown History Metoprolol Tartrate 25 mg PO BID 04/26/18 04/26/18 Unknown History Ranitidine HCl [Acid Control] 150 mg PO BID 04/26/18 04/26/18 Unknown History Venlafaxine [Effexor] 150 mg PO DAILY 04/26/18 04/26/18 Unknown History amLODIPine [Norvasc] 5 mg PO DAILY 04/26/18 04/26/18 Unknown History Active Meds: Active Medications Acetaminophen (Tylenol) 650 mg PO Q4H PRN PRN Reason: Fever >101 Aspirin (Aspirin) 325 mg PO QDAY [facility] Last Admin: 04/26/18 09:29 Dose: 325 mg Chlorthalidone (Thalitone) 25 mg PO QDAY [facility] Last Admin: 04/26/18 09:45 Dose: Not Given Dextrose (D50w (25gm) Syringe) 50 ml IV PRN PRN PRN Reason: Hypoglycemia Docusate Sodium (Colace) 100 mg PO BID PRN PRN Reason: Constipation Last Admin: 04/26/18 09:33 Dose: 100 mg Heparin Sodium (Porcine) (Heparin) 5,000 unit SUB-Q Q12HR [facility] Last Admin: 04/26/18 09:27 Dose: 5,000 unit Sodium Chloride (Nacl 0.9% 1000 Ml) 1,000 mls @ 75 mls/hr IV DIRECT [facility] Insulin Human Regular (Humulin R) 0 units SUB-Q [facility]; Protocol Last Admin: 04/26/18 07:46 Dose: Not Given Insulin Human Regular ([facility]ulin R) [facility] Protocol Lorazepam (Ativan) 0.5 mg PO BID PRN PRN Reason: Agitation Pantoprazole Sodium (Protonix) 40 mg PO QDAY [facility] Last Admin: 04/26/18 09:38 Dose: 40 mg Pravastatin Sodium (Pravachol) 40 mg PO QHS [facility] Last Admin: 04/26/18 09:39 Dose: Not Given Valsartan (Diovan) 320 mg PO QDAY [facility] Last Admin: 04/26/18 09:35 Dose: 320 mg Venlafaxine HCl (Effexor) 75 mg PO QDAY [facility] Last Admin: 04/26/18 09:38 Dose: 75 mg Exam - Vital Signs Vital signs: Vital Signs Temp Pulse Resp BP Pulse Ox 97.7 F 82 14 102/59 100 04/25/18 23:37 04/25/18 23:37 04/25/18 23:37 04/25/18 23:37 04/25/18 23:37 - Physical Exam Narrative exam: GE: Awake, Confused, non verbal HEENT:Normocephalic Neck:No JVD Chest:CTAB CVS:RRR Abd:Soft/NT/ND/BS+ Ext:No cce UG:No coppola Results - Lab Results 04/26/18 01:21 04/26/18 08:31 Most recent lab results Calcium 10.1 mg/dL (8.4-10.2) 04/26/18 08:31 Assessment and Plan Acute Kidney injury likely due to pre-renal from Poor appetite in the setting of Valsartan: -Check Urine studies, Renal US -Hydrate with 1/2 NS at 75 cc/hr -Hold Valsartan -Renally dose all meds and avoid nephrotoxic meds -Check CK level. Hyperkalemia: -Kayxelate 15 gms PO once -Low K diet -IVFs Hypernatremia, Hypertonic: -Hydrate with 1/2 NS at 75 cc/hr Confusion: -CT brain -ve for acute changes, does have h/o dementia -Per primary Essential Hypertension: -Titrate BP meds to keep SBP <130 -Avoid RAAS inhibitors like Valsartan for now Diabetes Mellitus type 2: -On ISS -Per primary Hyperlipidemia, chronic: -Can continue home statin Plan d/w bedside RN. With this note, I want to thank Dr Verma for allowing me to participate in the care of Ms Reddy, i will continue to follow the patient quite closely with you, don't hesitate to call me on phone if any questions. Julio López MD [phone]
--- NOTE | 2018-04-26 13:06 | Event Note ---
Date: 04/26/18 78-year-old female patient from local 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 Case management
[2018-04-26] MEDS ORDERED: KIONEX ONE (13:17)
[2018-04-26] MEDS ORDERED: KIONEX PO ONE (14:07)
[2018-04-26] MEDS ORDERED: KIONEX PO NR (15:00)
[2018-04-26] MEDS: NACL 0.45% 1000 ML 1,000 ML IV SCH (15:55)
--- NOTE | 2018-04-26 18:28 | Ultrasound Report ---
FINAL REPORT PROCEDURE: US RENAL BILAT TECHNIQUE: Real-time sonography in multiple planes of the kidneys, ureters and urinary bladder was performed with image documentation. CPT 63355 HISTORY: Acute kidney injury. COMPARISON: No prior studies are available for comparison. FINDINGS: RIGHT kidney: Increased cortical echogenicity. No focal renal mass, calculus, or hydronephrosis. 10.4 x 5.4 x 5.1 cm with cortical thickness of 1.1 cm. LEFT kidney: Increased cortical echogenicity. No focal renal mass, calculus, or hydronephrosis. 10 x 5.7 x 4.6 cm with cortical thickness of 1.2 cm. Bladder: Normal. IMPRESSION: Bilateral echogenic kidneys, consider medical renal disease. No hydronephrosis, mass, or calculus.
[2018-04-26] MEDS: PULMICORT IH SCH (20:37)
[2018-04-26] MEDS: BROVANA NEBU IH SCH (20:37)
[2018-04-26] MEDS: ARICEPT PO SCH (22:00)
[2018-04-26] MEDS: NEURONTIN PO SCH (22:00)
[2018-04-26] MEDS ORDERED: NON-FORMULARY (Budesonide/Formoterol Fumarate [Symbicort 160-4.5 Mcg Inhaler] 2 PUFF) INHALATION SCH (22:00)
[2018-04-27] MEDS: LOPRESSOR PO SCH ×3 (01:29→22:01)
[2018-04-27] MEDS ORDERED: GLUCOTROL PO SCH (08:00)
[2018-04-27] MEDS: HumuLIN R SUB-Q SCH ×4 (08:33→22:01)
[2018-04-27 08:41] LABS: BUN/Creatinine Ratio 29; Blood Urea Nitrogen 29 mg/dL (7-17); Calcium 9.7 mg/dL (8.4-10.2); Hemolysis Index 19
[2018-04-27] MEDS: PULMICORT IH SCH ×2 (08:59→20:32)
[2018-04-27] MEDS: BROVANA NEBU IH SCH ×2 (08:59→20:32)
[2018-04-27 09:06] LABS: Hemoglobin 11.7 gm/dl (10.1-14.3); Red Blood Count 4.07 M/mm3 (3.65-5.03)
[2018-04-27 09:07] LABS: Basophils # (Auto) 0.1 K/mm3 (0.0-0.1); Basophils % (Auto) 0.7 % (0.0-1.8); Eosinophils # (Auto) 0.2 K/mm3 (0.0-0.4); Hematocrit 36.4 % (30.3-42.9); Lymphocytes # (Auto) 2.5 K/mm3 (1.2-5.4); Lymphocytes % (Auto) 31.5 % (13.4-35.0); Mean Corpuscular HGB Conc 32 % (30-34); Mean Corpuscular Hemoglobin 29 pg (28-32); Mean Corpuscular Volume 89 fl (79-97); Monocytes # (Auto) 0.6 K/mm3 (0.0-0.8); Platelet Count 232 K/mm3 (140-440); Red Cell Distribution Width 16.3 % (13.2-15.2)
--- NOTE | 2018-04-27 09:29 | Progress Note ---
Assessment and Plan Assessment and plan: --Acute kidney injury; secondary to ATN Significant improvement of creatinine, continue gentle hydration Closely monitor renal function, avoid nephrotoxins, nephrology following --Failure to thrive; poor oral intake; Patient has poor dentition, discussed with the patient and her daughter Reason for poor oral intake, change the diet to pure and advance as tolerated --Type 2 diabetes mellitus; well controlled, blood sugars on the lower range Hold oral hypoglycemics, closely monitor, HbA1c 5.9 --History of hypertension; patient's blood pressures are in the normal range IV fluids, hold antihypertensives --Diabetic Neuropathy; continue gabapentin --Dyslipidemia; on statin, low cholesterol diet --Mild malnutrition; nutrition supplements potential and supportive care --DVT prophylaxis; Lovenox --Full CODE STATUS --Physical therapy occupational therapy DC planning. Case management; possible home with home health and medically stable Plan of care is reviewed with the patient and her daughter at the bedside As well as the nurse History Interval history: Patient seen and examined ,medical records reviewed No new events reported by the nursing staff Able to tolerate pured diet Daughter at the bedside Patient is alert and awake responding to very simple questions Not in acute distress Vital signs noted Hospitalist Physical - Constitutional Vitals: Temp Pulse Resp BP Pulse Ox 98.4 F 78 18 85/48 95 04/27/18 07:25 04/27/18 07:25 04/27/18 07:25 04/27/18 07:25 04/27/18 07:25 General appearance: Present: no acute distress, well-nourished - EENT Eyes: Present: PERRL, EOM intact - Neck Neck: Present: supple, normal ROM - Respiratory Respiratory effort: normal Respiratory: negative: rales, rhonchi, wheezing - Cardiovascular Rhythm: regular Heart Sounds: Present: S1 & S2 - Extremities Extremities: no ischemia, No edema - Abdominal General gastrointestinal: soft, non-tender, non-distended, normal bowel sounds - Integumentary Integumentary: Present: clear, warm - Psychiatric Psychiatric: appropriate mood/affect, other (confused at times) - Neurologic Neurologic: moves all extremities Results - Labs CBC & Chem 7: 04/27/18 07:55 04/27/18 07:55 Labs: Laboratory Last Values WBC 7.9 K/mm3 (4.5-11.0) 04/27/18 07:55 RBC 4.07 M/mm3 (3.65-5.03) 04/27/18 07:55 Hgb 11.7 gm/dl (10.1-14.3) 04/27/18 07:55 Hct 36.4 % (30.3-42.9) 04/27/18 07:55 MCV 89 fl (79-97) 04/27/18 07:55 MCH 29 pg (28-32) 04/27/18 07:55 MCHC 32 % (30-34) 04/27/18 07:55 RDW 16.3 % (13.2-15.2) H 04/27/18 07:55 Plt Count 232 K/mm3 (140-440) 04/27/18 07:55 Lymph % (Auto) 31.5 % (13.4-35.0) 04/27/18 07:55 [place] % (Auto) Deputy Sheriff Generalist 04/27/18 07:55 Eos % (Auto) 3.0 % (0.0-4.3) 04/27/18 07:55 Baso % (Auto) 0.7 % (0.0-1.8) 04/27/18 07:55 Lymph # 2.5 K/mm3 (1.2-5.4) 04/27/18 07:55 [place] # 0.6 K/mm3 (0.0-0.8) 04/27/18 07:55 Eos # 0.2 K/mm3 (0.0-0.4) 04/27/18 07:55 Baso # 0.1 K/mm3 (0.0-0.1) 04/27/18 07:55 Seg Neutrophils % 57.6 % (40.0-70.0) 04/27/18 07:55 Seg Neutrophils # 4.6 K/mm3 (1.8-7.7) 04/27/18 07:55 Sodium 145 mmol/L (137-145) 04/27/18 07:55 Potassium 4.3 mmol/L (3.6-5.0) 04/27/18 07:55 Chloride 101.9 mmol/L (98-107) 04/27/18 07:55 Carbon Dioxide 21 mmol/L (22-30) L 04/27/18 07:55 Anion Gap 26 mmol/L 04/27/18 07:55 BUN 29 mg/dL (7-17) H 04/27/18 07:55 Creatinine 1.0 mg/dL (0.7-1.2) 04/27/18 07:55 Estimated GFR > 60 ml/min 04/27/18 07:55 BUN/Creatinine Ratio 29 % 04/27/18 07:55 Glucose 69 mg/dL (65-100) 04/27/18 07:55 POC Glucose 71 (70-105) 04/27/18 07:37 Lactic Acid 1.00 mmol/L (0.7-2.0) 04/26/18 02:37 Calcium 9.7 mg/dL (8.4-10.2) 04/27/18 07:55 Total Bilirubin 0.30 mg/dL (0.1-1.2) 04/26/18 08:31 AST 17 units/L (5-40) 04/26/18 08:31 ALT 9 units/L (7-56) 04/26/18 08:31 Alkaline Phosphatase 57 units/L (35-129) 04/26/18 08:31 Total Creatine Kinase 100 units/L (30-135) 04/26/18 15:10 CK-MB (CK-2) 3.1 ng/mL (0.0-4.0) 04/26/18 07:26 CK-MB (CK-2) Rel Index 2.7 (0-4) 04/26/18 07:26 Troponin T 0.024 ng/mL (0.00-0.029) 04/26/18 07:26 Total Protein 7.2 g/dL (6.3-8.2) 04/26/18 08:31 Albumin 3.5 g/dL (3.9-5) L 04/26/18 08:31 Albumin/Globulin Ratio 0.9 % 04/26/18 08:31 Triglycerides 127 mg/dL (2-149) 04/26/18 02:37 Cholesterol 148 mg/dL (50-199) 04/26/18 02:37 LDL Cholesterol Direct 81 mg/dL (50-130) 04/26/18 02:37 HDL Cholesterol 49 mg/dL (40-59) 04/26/18 02:37 Cholesterol/HDL Ratio 3.02 % 04/26/18 02:37 TSH 4.960 mlU/mL (0.270-4.200) H 04/26/18 02:37 Free T4 1.34 ng/dL (0.76-1.46) 04/26/18 04:51 Urine Color Yellow (Yellow) 04/26/18 02:56 Urine Turbidity Hazy (Clear) 04/26/18 02:56 Urine pH 5.0 (5.0-7.0) 04/26/18 02:56 Ur Specific [place] 1.021 (1.003-1.030) 04/26/18 02:56 Urine Protein 30 mg/dl mg/dL (Negative) 04/26/18 02:56 Urine Glucose (UA) Neg mg/dL (Negative) 04/26/18 02:56 Urine Ketones Tr mg/dL (Negative) 04/26/18 02:56 Urine Blood Neg (Negative) 04/26/18 02:56 Urine Nitrite Neg (Negative) 04/26/18 02:56 Urine Bilirubin Neg (Negative) 04/26/18 02:56 Urine Urobilinogen 2.0 mg/dL (<2.0) 04/26/18 02:56 Ur Leukocyte Esterase Tr (Negative) 04/26/18 02:56 Urine WBC (Auto) 6.0 /HPF (0.0-6.0) 04/26/18 02:56 Urine RBC (Auto) 1.0 /HPF (0.0-6.0) 04/26/18 02:56 U Epithel Cells (Auto) 13.0 /HPF (0-13.0) 04/26/18 02:56 Urine Mucus 3+ /HPF 04/26/18 02:56 Urine Opiates Screen Presumptive negative 04/26/18 02:56 Urine Methadone Screen Presumptive negative 04/26/18 02:56 Ur Barbiturates Screen Presumptive negative 04/26/18 02:56 Ur Phencyclidine Scrn Presumptive positive 04/26/18 02:56 Ur Amphetamines Screen Presumptive positive 04/26/18 02:56 U Benzodiazepines Scrn Presumptive negative 04/26/18 02:56 Urine Cocaine Screen Presumptive negative 04/26/18 02:56 U Marijuana (THC) Screen Presumptive negative 04/26/18 02:56 Drugs of Abuse Note Disclamer 04/26/18 02:56
[2018-04-27] MEDS: PROTONIX PO SCH (09:35)
[2018-04-27] MEDS: EFFEXOR PO SCH (09:35)
[2018-04-27] MEDS: celeXA PO SCH (09:35)
[2018-04-27] MEDS: HEPARIN SUB-Q SCH ×2 (09:36→22:00)
[2018-04-27] MEDS: NORVASC PO SCH (09:36)
[2018-04-27] MEDS ORDERED: NON-FORMULARY (Glipizide 5 MG) PO SCH (10:00)
[2018-04-27 10:09] LABS: Bacteria,Urine 1+ /HPF (Negative); Bilirubin,Urine NEG (Negative); Blood,Urine NEG (Negative); Color,Urine Yellow (Yellow); Mucus,Urine 3+ /HPF; Protein,Urine <15 mg/dL mg/dL (Negative); Urobilinogen,Urine < 2.0 mg/dL (<2.0)
[2018-04-27 11:10] LABS: Creatinine,Urine 90.3 mg/dL (0.1-20.0); Protein/Creatinine Ratio,Urine 0.27
--- NOTE | 2018-04-27 12:03 | Progress Note ---
Assessment and Plan Acute Kidney injury likely due to pre-renal from Poor appetite in the setting of Valsartan: -Renal US shows chronicity, may have CKD. -Continue Hydration with 1/2 NS at 75 cc/hr, Cr trending down. -Holding Valsartan -Renally dose all meds and avoid nephrotoxic meds Hyperkalemia: -Better with Kayxelate -Low K diet Hypernatremia, Hypertonic: -Hydrate with 1/2 NS at 75 cc/hr Confusion: -CT brain -ve for acute changes, does have h/o dementia -Per primary Essential Hypertension: -Titrate BP meds to keep SBP <130 -Avoid RAAS inhibitors like Valsartan for now Diabetes Mellitus type 2: -On ISS -Per primary Hyperlipidemia, chronic: -Can continue home statin With this note, I want to thank Dr Verma for allowing me to participate in the care of Ms Reddy, i will continue to follow the patient quite closely with you, don't hesitate to call me on phone if any questions. Julio López MD [phone] Subjective Date of service: 04/27/18 Interval history: Awake, non verbal. Objective - Exam Narrative Exam: GE: Awake, Confused, non verbal HEENT:Normocephalic Neck:No JVD Chest:CTAB CVS:RRR Abd:Soft/NT/ND/BS+ Ext:No cce UG:No coppola - Vital Signs Vital signs: Vital Signs - 12hr 04/27/18 04/27/18 04/27/18 01:29 07:25 09:00 Temperature 98.4 F Pulse Rate 72 78 Pulse Rate [ 100 H Anterior Bilateral Throughout] Respiratory 18 Rate Respiratory 18 Rate [Anterior Bilateral Throughout] Blood Pressure 149/62 85/48 O2 Sat by Pulse 95 Oximetry 04/27/18 09:55 Temperature Pulse Rate Pulse Rate [ 96 H Anterior Bilateral Throughout] Respiratory Rate Respiratory 18 Rate [Anterior Bilateral Throughout] Blood Pressure O2 Sat by Pulse Oximetry - Lab 04/27/18 07:55 04/27/18 07:55 Most recent lab results Calcium 9.7 mg/dL (8.4-10.2) 04/27/18 07:55 Urine Creatinine 90.3 mg/dL (0.1-20.0) H 04/27/18 09:00 Urine Sodium 118 mmol/L 04/27/18 09:00 Urine Total Protein 24 mg/dL (5-11.8) H 04/27/18 09:00
[2018-04-27] MEDS: NACL 0.45% 1000 ML 1,000 ML IV SCH (18:26)
[2018-04-27] MEDS: NEURONTIN PO SCH (22:00)
[2018-04-27] MEDS: PRAVACHOL PO SCH (22:00)
[2018-04-27] MEDS: ARICEPT PO SCH (22:00)
[2018-04-28] MEDS: NACL 0.45% 1000 ML 1,000 ML IV SCH ×2 (06:15→19:29)
[2018-04-28] MEDS: HumuLIN R SUB-Q SCH ×4 (07:30→22:51)
[2018-04-28] MEDS: PULMICORT IH SCH ×2 (07:51→19:58)
[2018-04-28] MEDS: BROVANA NEBU IH SCH ×2 (07:51→19:58)
--- NOTE | 2018-04-28 08:18 | Progress Note ---
Assessment and Plan Assessment and plan: --Acute kidney injury; secondary to ATN; resolved Closely monitor renal function, avoid nephrotoxins --Failure to thrive; poor oral intake; Patient has poor dentition, discussed with the patient and her daughter Reason for poor oral intake, change the diet to pure and advance as tolerated Speech and swallow evaluation and possible modified barium swallow --Type 2 diabetes mellitus; well controlled, blood sugars on the lower range Hold oral hypoglycemics, closely monitor, HbA1c 5.9 --History of hypertension; patient's blood pressures are in the normal range IV fluids, hold antihypertensives --Diabetic Neuropathy; continue gabapentin --Dyslipidemia; on statin, low cholesterol diet --Mild malnutrition; nutrition supplements potential and supportive care --DVT prophylaxis; Lovenox --Full CODE STATUS --Physical therapy occupational therapy DC planning. Case management; possible SNF versus home with home health When medically stable History Interval history: Patient seen and examined medical records reviewed Patient has poor oral intake, pured diet Speech and swallow evaluation pending Alert and awake not in acute distress Vital signs reviewed Hospitalist Physical - Constitutional Vitals: Temp Pulse Resp BP Pulse Ox 97.4 F L 65 18 129/56 93 04/28/18 07:28 04/28/18 07:52 04/28/18 07:52 04/28/18 07:28 04/28/18 07:54 General appearance: Present: no acute distress, well-nourished - EENT Eyes: Present: PERRL, EOM intact - Neck Neck: Present: supple, normal ROM - Respiratory Respiratory effort: normal Respiratory: bilateral: diminished, negative: rales, rhonchi, wheezing - Cardiovascular Rhythm: regular Heart Sounds: Present: S1 & S2 - Extremities Extremities: no ischemia, No edema - Abdominal General gastrointestinal: soft, non-tender, non-distended, normal bowel sounds - Integumentary Integumentary: Present: clear, warm - Psychiatric Psychiatric: appropriate mood/affect, cooperative, other (confused at times) - Neurologic Neurologic: moves all extremities Results - Labs CBC & Chem 7: 04/27/18 07:55 04/28/18 11:47 Labs: Laboratory Last Values WBC 7.9 K/mm3 (4.5-11.0) 04/27/18 07:55 RBC 4.07 M/mm3 (3.65-5.03) 04/27/18 07:55 Hgb 11.7 gm/dl (10.1-14.3) 04/27/18 07:55 Hct 36.4 % (30.3-42.9) 04/27/18 07:55 MCV 89 fl (79-97) 04/27/18 07:55 MCH 29 pg (28-32) 04/27/18 07:55 MCHC 32 % (30-34) 04/27/18 07:55 RDW 16.3 % (13.2-15.2) H 04/27/18 07:55 Plt Count 232 K/mm3 (140-440) 04/27/18 07:55 Lymph % (Auto) 31.5 % (13.4-35.0) 04/27/18 07:55 [place] % (Auto) [employer] Chief Scientist 04/27/18 07:55 Eos % (Auto) 3.0 % (0.0-4.3) 04/27/18 07:55 Baso % (Auto) 0.7 % (0.0-1.8) 04/27/18 07:55 Lymph # 2.5 K/mm3 (1.2-5.4) 04/27/18 07:55 [place] # 0.6 K/mm3 (0.0-0.8) 04/27/18 07:55 Eos # 0.2 K/mm3 (0.0-0.4) 04/27/18 07:55 Baso # 0.1 K/mm3 (0.0-0.1) 04/27/18 07:55 Seg Neutrophils % 57.6 % (40.0-70.0) 04/27/18 07:55 Seg Neutrophils # 4.6 K/mm3 (1.8-7.7) 04/27/18 07:55 Sodium 145 mmol/L (137-145) 04/27/18 07:55 Potassium 4.3 mmol/L (3.6-5.0) 04/27/18 07:55 Chloride 101.9 mmol/L (98-107) 04/27/18 07:55 Carbon Dioxide 21 mmol/L (22-30) L 04/27/18 07:55 Anion Gap 26 mmol/L 04/27/18 07:55 BUN 29 mg/dL (7-17) H 04/27/18 07:55 Creatinine 1.0 mg/dL (0.7-1.2) 04/27/18 07:55 Estimated GFR > 60 ml/min 04/27/18 07:55 BUN/Creatinine Ratio 29 % 04/27/18 07:55 Glucose 69 mg/dL (65-100) 04/27/18 07:55 POC Glucose 81 (70-105) 04/28/18 07:28 Lactic Acid 1.00 mmol/L (0.7-2.0) 04/26/18 02:37 Calcium 9.7 mg/dL (8.4-10.2) 04/27/18 07:55 Total Bilirubin 0.30 mg/dL (0.1-1.2) 04/26/18 08:31 AST 17 units/L (5-40) 04/26/18 08:31 ALT 9 units/L (7-56) 04/26/18 08:31 Alkaline Phosphatase 57 units/L (35-129) 04/26/18 08:31 Total Creatine Kinase 100 units/L (30-135) 04/26/18 15:10 CK-MB (CK-2) 3.1 ng/mL (0.0-4.0) 04/26/18 07:26 CK-MB (CK-2) Rel Index 2.7 (0-4) 04/26/18 07:26 Troponin T 0.024 ng/mL (0.00-0.029) 04/26/18 07:26 Total Protein 7.2 g/dL (6.3-8.2) 04/26/18 08:31 Albumin 3.5 g/dL (3.9-5) L 04/26/18 08:31 Albumin/Globulin Ratio 0.9 % 04/26/18 08:31 Triglycerides 127 mg/dL (2-149) 04/26/18 02:37 Cholesterol 148 mg/dL (50-199) 04/26/18 02:37 LDL Cholesterol Direct 81 mg/dL (50-130) 04/26/18 02:37 HDL Cholesterol 49 mg/dL (40-59) 04/26/18 02:37 Cholesterol/HDL Ratio 3.02 % 04/26/18 02:37 TSH 4.960 mlU/mL (0.270-4.200) H 04/26/18 02:37 Free T4 1.34 ng/dL (0.76-1.46) 04/26/18 04:51 Urine Color Yellow (Yellow) 04/27/18 09:00 Urine Turbidity Clear (Clear) 04/27/18 09:00 Urine pH 5.0 (5.0-7.0) 04/27/18 09:00 Ur Specific [place] 1.017 (1.003-1.030) 04/27/18 09:00 Urine Protein <15 mg/dl mg/dL (Negative) 04/27/18 09:00 Urine Glucose (UA) Neg mg/dL (Negative) 04/27/18 09:00 Urine Ketones 20 mg/dL (Negative) 04/27/18 09:00 Urine Blood Neg (Negative) 04/27/18 09:00 Urine Nitrite Neg (Negative) 04/27/18 09:00 Urine Bilirubin Neg (Negative) 04/27/18 09:00 Urine Urobilinogen < 2.0 mg/dL (<2.0) 04/27/18 09:00 Ur Leukocyte Esterase Tr (Negative) 04/27/18 09:00 Urine WBC (Auto) 4.0 /HPF (0.0-6.0) 04/27/18 09:00 Urine RBC (Auto) 1.0 /HPF (0.0-6.0) 04/27/18 09:00 U Epithel Cells (Auto) 2.0 /HPF (0-13.0) 04/27/18 09:00 Urine Bacteria (Auto) 1+ /HPF (Negative) 04/27/18 09:00 Urine Mucus 3+ /HPF 04/27/18 09:00 Urine Yeast (Budding) Few /HPF 04/27/18 09:00 Urine Eosinophils None seen (None Seen) 04/26/18 09:00 Urine Creatinine 90.3 mg/dL (0.1-20.0) H 04/27/18 09:00 Protein/Creatinin Ratio 0.27 04/27/18 09:00 Urine Sodium 118 mmol/L 04/27/18 09:00 Urine Urea Nitrogen 963 04/27/18 09:00 Urine Total Protein 24 mg/dL (5-11.8) H 04/27/18 09:00 Urine Opiates Screen Presumptive negative 04/26/18 02:56 Urine Methadone Screen Presumptive negative 04/26/18 02:56 Ur Barbiturates Screen Presumptive negative 04/26/18 02:56 Ur Phencyclidine Scrn Presumptive positive 04/26/18 02:56 Ur Amphetamines Screen Presumptive positive 04/26/18 02:56 U Benzodiazepines Scrn Presumptive negative 04/26/18 02:56 Urine Cocaine Screen Presumptive negative 04/26/18 02:56 U Marijuana (THC) Screen Presumptive negative 04/26/18 02:56 Drugs of Abuse Note Disclamer 04/26/18 02:56
[2018-04-28] MEDS: LOPRESSOR PO SCH ×2 (09:17→22:49)
[2018-04-28] MEDS: NORVASC PO SCH (09:17)
[2018-04-28] MEDS: celeXA PO SCH (09:22)
[2018-04-28] MEDS: EFFEXOR PO SCH (09:22)
[2018-04-28] MEDS: HEPARIN SUB-Q SCH ×2 (09:22→22:49)
[2018-04-28] MEDS: PROTONIX PO SCH (09:22)
[2018-04-28 12:19] LABS: BUN/Creatinine Ratio 18; Blood Urea Nitrogen 11 mg/dL (7-17); Calcium 9.3 mg/dL (8.4-10.2); Hemolysis Index 4
--- NOTE | 2018-04-28 16:02 | Progress Note ---
Assessment and Plan Acute Kidney injury likely due to pre-renal from Poor appetite in the setting of Valsartan: -Renal US shows chronicity, may have CKD. -Continue Hydration with 1/2 NS at 75 cc/hr, Cr continues to improve. -Holding Valsartan -Renally dose all meds and avoid nephrotoxic meds Hyperkalemia: -Better with Kayxelate -Low K diet Hypernatremia, Hypertonic: -Hydrate with 1/2 NS at 75 cc/hr Confusion: -CT brain -ve for acute changes, does have h/o dementia -Per primary Essential Hypertension: -Titrate BP meds to keep SBP <130 -Avoid RAAS inhibitors like Valsartan for now Diabetes Mellitus type 2: -On ISS -Per primary Hyperlipidemia, chronic: -Can continue home statin With this note, I want to thank Dr Verma for allowing me to participate in the care of Ms Reddy, i will continue to follow the patient quite closely with you, don't hesitate to call me on phone if any questions. Jluio López MD [phone] Subjective Date of service: 04/28/18 Interval history: Awake, non verbal. Objective - Exam Narrative Exam: GE: Awake, Confused, non verbal HEENT:Normocephalic Neck:No JVD Chest:CTAB CVS:RRR Abd:Soft/NT/ND/BS+ Ext:No cce UG:No coppola - Vital Signs Vital signs: Vital Signs - 12hr 04/28/18 04/28/18 04/28/18 07:28 07:52 07:54 Temperature 97.4 F L Pulse Rate 57 L Pulse Rate [ 65 Anterior Bilateral Throughout] Respiratory 24 Rate Respiratory 18 Rate [Anterior Bilateral Throughout] Blood Pressure Blood Pressure 129/56 [Left] O2 Sat by Pulse 95 93 Oximetry 04/28/18 14:31 Temperature 99.3 F Pulse Rate Pulse Rate [ Anterior Bilateral Throughout] Respiratory 24 Rate Respiratory Rate [Anterior Bilateral Throughout] Blood Pressure 162/88 Blood Pressure [Left] O2 Sat by Pulse Oximetry - Lab 04/27/18 07:55 04/28/18 11:47 Most recent lab results Calcium 9.3 mg/dL (8.4-10.2) 04/28/18 11:47 Urine Creatinine 90.3 mg/dL (0.1-20.0) H 04/27/18 09:00 Urine Sodium 118 mmol/L 04/27/18 09:00 Urine Total Protein 24 mg/dL (5-11.8) H 04/27/18 09:00
[2018-04-28] MEDS: PRAVACHOL PO SCH (22:49)
[2018-04-28] MEDS: ARICEPT PO SCH (22:49)
[2018-04-28] MEDS: NEURONTIN PO SCH (22:50)
[2018-04-29] MEDS: BROVANA NEBU IH SCH ×2 (07:15→19:54)
[2018-04-29] MEDS: PULMICORT IH SCH ×2 (07:16→19:54)
[2018-04-29] MEDS: NACL 0.45% 1000 ML 1,000 ML IV SCH ×2 (08:58→22:25)
[2018-04-29] MEDS: HumuLIN R SUB-Q SCH ×4 (09:45→21:42)
[2018-04-29] MEDS: LOPRESSOR PO SCH ×2 (10:32→22:06)
[2018-04-29] MEDS: celeXA PO SCH (10:34)
[2018-04-29] MEDS: NORVASC PO SCH (10:34)
[2018-04-29] MEDS: PROTONIX PO SCH (10:34)
[2018-04-29] MEDS: EFFEXOR PO SCH (10:35)
[2018-04-29] MEDS: HEPARIN SUB-Q SCH ×2 (10:37→22:06)
[2018-04-29 12:18] LABS: BUN/Creatinine Ratio 13; Blood Urea Nitrogen 9 mg/dL (7-17); Hemolysis Index 4
--- NOTE | 2018-04-29 14:58 | Progress Note ---
Assessment and Plan Assessment and plan: --Acute kidney injury; secondary to ATN; resolved --Failure to thrive; poor oral intake; Patient has poor dentition, discussed with the patient and her daughter Reason for poor oral intake, change the diet to pure and advance as tolerated --Speech therapy ;Recommend pured diet with regular/thin Liquids and crushed medications supervised feeding sitting upright and liquids from the cup --Type 2 diabetes mellitus; well controlled, blood sugars on the lower range Hold oral hypoglycemics, closely monitor, HbA1c 5.9 --History of hypertension; patient's blood pressures are in the normal range IV fluids, hold antihypertensives --Diabetic Neuropathy; continue gabapentin --Dyslipidemia; on statin, low cholesterol diet --Mild malnutrition; nutrition supplements potential and supportive care --DVT prophylaxis; Lovenox --Full CODE STATUS --Physical therapy occupational therapy DC planning. Case management; possible SNF versus home with home health When medically stable possible DC tomorrow if stable I called and discussed in detail patient's condition, Speech therapy recommendations, treatment plan and possible discharge tomorrow, With daughter with MS Cid History Interval history: Patient seen and examined medical records reviewed Patient is sitting on chair comfortable no new complaints Speech therapist evaluated the patient. Speech therapy ;Recommend pured diet with regular/thin Liquids and crushed medications supervised feeding sitting upright and liquids from the cup She does not new complaints Vital signs reviewed Hospitalist Physical - Constitutional Vitals: Temp Pulse Resp BP Pulse Ox 98.2 F 127 H 18 145/85 96 04/29/18 07:21 04/29/18 10:34 04/29/18 07:26 04/29/18 10:34 04/29/18 10:00 General appearance: Present: no acute distress, well-nourished - EENT Eyes: Present: PERRL, EOM intact ENT: hearing intact, clear oral mucosa - Neck Neck: Present: supple, normal ROM - Respiratory Respiratory effort: normal Respiratory: negative: rales, rhonchi, wheezing - Cardiovascular Rhythm: regular Heart Sounds: Present: S1 & S2 - Extremities Extremities: no ischemia, No edema - Abdominal General gastrointestinal: soft, non-tender, non-distended, normal bowel sounds - Integumentary Integumentary: Present: clear, warm - Psychiatric Psychiatric: appropriate mood/affect, cooperative, other (sometimes confused ) - Neurologic Neurologic: CNII-XII intact, moves all extremities Results - Labs CBC & Chem 7: 04/27/18 07:55 04/29/18 11:29 Labs: Laboratory Last Values WBC 7.9 K/mm3 (4.5-11.0) 04/27/18 07:55 RBC 4.07 M/mm3 (3.65-5.03) 04/27/18 07:55 Hgb 11.7 gm/dl (10.1-14.3) 04/27/18 07:55 Hct 36.4 % (30.3-42.9) 04/27/18 07:55 MCV 89 fl (79-97) 04/27/18 07:55 MCH 29 pg (28-32) 04/27/18 07:55 MCHC 32 % (30-34) 04/27/18 07:55 RDW 16.3 % (13.2-15.2) H 04/27/18 07:55 Plt Count 232 K/mm3 (140-440) 04/27/18 07:55 Lymph % (Auto) 31.5 % (13.4-35.0) 04/27/18 07:55 [place] % (Auto) Professor Of History 04/27/18 07:55 Eos % (Auto) 3.0 % (0.0-4.3) 04/27/18 07:55 Baso % (Auto) 0.7 % (0.0-1.8) 04/27/18 07:55 Lymph # 2.5 K/mm3 (1.2-5.4) 04/27/18 07:55 [place] # 0.6 K/mm3 (0.0-0.8) 04/27/18 07:55 Eos # 0.2 K/mm3 (0.0-0.4) 04/27/18 07:55 Baso # 0.1 K/mm3 (0.0-0.1) 04/27/18 07:55 Seg Neutrophils % 57.6 % (40.0-70.0) 04/27/18 07:55 Seg Neutrophils # 4.6 K/mm3 (1.8-7.7) 04/27/18 07:55 Sodium 140 mmol/L (137-145) 04/29/18 11:29 Potassium 3.8 mmol/L (3.6-5.0) 04/29/18 11:29 Chloride 98.0 mmol/L (98-107) 04/29/18 11:29 Carbon Dioxide 27 mmol/L (22-30) 04/29/18 11:29 Anion Gap 19 mmol/L 04/29/18 11:29 BUN 9 mg/dL (7-17) 04/29/18 11:29 Creatinine 0.7 mg/dL (0.7-1.2) 04/29/18 11:29 Estimated GFR > 60 ml/min 04/29/18 11:29 BUN/Creatinine Ratio 13 % 04/29/18 11:29 Glucose 171 mg/dL (65-100) H 04/29/18 11:29 POC Glucose 185 (70-105) H 04/29/18 11:18 Lactic Acid 1.00 mmol/L (0.7-2.0) 04/26/18 02:37 Calcium 10.0 mg/dL (8.4-10.2) 04/29/18 11:29 Total Bilirubin 0.30 mg/dL (0.1-1.2) 04/26/18 08:31 AST 17 units/L (5-40) 04/26/18 08:31 ALT 9 units/L (7-56) 04/26/18 08:31 Alkaline Phosphatase 57 units/L (35-129) 04/26/18 08:31 Total Creatine Kinase 100 units/L (30-135) 04/26/18 15:10 CK-MB (CK-2) 3.1 ng/mL (0.0-4.0) 04/26/18 07:26 CK-MB (CK-2) Rel Index 2.7 (0-4) 04/26/18 07:26 Troponin T 0.024 ng/mL (0.00-0.029) 04/26/18 07:26 Total Protein 7.2 g/dL (6.3-8.2) 04/26/18 08:31 Albumin 3.5 g/dL (3.9-5) L 04/26/18 08:31 Albumin/Globulin Ratio 0.9 % 04/26/18 08:31 Triglycerides 127 mg/dL (2-149) 04/26/18 02:37 Cholesterol 148 mg/dL (50-199) 04/26/18 02:37 LDL Cholesterol Direct 81 mg/dL (50-130) 04/26/18 02:37 HDL Cholesterol 49 mg/dL (40-59) 04/26/18 02:37 Cholesterol/HDL Ratio 3.02 % 04/26/18 02:37 TSH 4.960 mlU/mL (0.270-4.200) H 04/26/18 02:37 Free T4 1.34 ng/dL (0.76-1.46) 04/26/18 04:51 Urine Color Yellow (Yellow) 04/27/18 09:00 Urine Turbidity Clear (Clear) 04/27/18 09:00 Urine pH 5.0 (5.0-7.0) 04/27/18 09:00 Ur Specific [place] 1.017 (1.003-1.030) 04/27/18 09:00 Urine Protein <15 mg/dl mg/dL (Negative) 04/27/18 09:00 Urine Glucose (UA) Neg mg/dL (Negative) 04/27/18 09:00 Urine Ketones 20 mg/dL (Negative) 04/27/18 09:00 Urine Blood Neg (Negative) 04/27/18 09:00 Urine Nitrite Neg (Negative) 04/27/18 09:00 Urine Bilirubin Neg (Negative) 04/27/18 09:00 Urine Urobilinogen < 2.0 mg/dL (<2.0) 04/27/18 09:00 Ur Leukocyte Esterase Tr (Negative) 04/27/18 09:00 Urine WBC (Auto) 4.0 /HPF (0.0-6.0) 04/27/18 09:00 Urine RBC (Auto) 1.0 /HPF (0.0-6.0) 04/27/18 09:00 U Epithel Cells (Auto) 2.0 /HPF (0-13.0) 04/27/18 09:00 Urine Bacteria (Auto) 1+ /HPF (Negative) 04/27/18 09:00 Urine Mucus 3+ /HPF 04/27/18 09:00 Urine Yeast (Budding) Few /HPF 04/27/18 09:00 Urine Eosinophils None seen (None Seen) 04/26/18 09:00 Urine Creatinine 90.3 mg/dL (0.1-20.0) H 04/27/18 09:00 Protein/Creatinin Ratio 0.27 04/27/18 09:00 Urine Sodium 118 mmol/L 04/27/18 09:00 Urine Urea Nitrogen 963 04/27/18 09:00 Urine Total Protein 24 mg/dL (5-11.8) H 04/27/18 09:00 Urine Opiates Screen Presumptive negative 04/26/18 02:56 Urine Methadone Screen Presumptive negative 04/26/18 02:56 Ur Barbiturates Screen Presumptive negative 04/26/18 02:56 Ur Phencyclidine Scrn Presumptive positive 04/26/18 02:56 Ur Amphetamines Screen Presumptive positive 04/26/18 02:56 U Benzodiazepines Scrn Presumptive negative 04/26/18 02:56 Urine Cocaine Screen Presumptive negative 04/26/18 02:56 U Marijuana (THC) Screen Presumptive negative 04/26/18 02:56 Drugs of Abuse Note Disclamer 04/26/18 02:56
--- NOTE | 2018-04-29 15:30 | Query-Altered Level of Consc. ---
Dear ___Bayron Date: 04/29/2018 Rn Advanced/CDS:___jeffrey Phone#:___[phone] Exercise your independent professional judgment when responding to this query. Questions asked do not imply a particular answer is desired or expected. We greatly appreciate your clarification on this issue. Clinical Documentation States: Ms Reddy is a 78 y/o F with a PMH of HTN, HLD, DM2, Dementia, Anxiety who has been admitted to the [facility] with altered mental status as well as failure to thrive. Pt has had poor appetite and has not eaten in 1-2 days. Pt was found to have GOLDEN and hyperkalemia on labs in the ER. Her K level is 5.3. Her Cr is also elevated compared to her last baseline. Taken from consult note () on 04/26. Confusion: -CT brain -ve for acute changes, does have h/o dementia -Per primary Altered mental status: Written in the H&P note () on 04/26/18 under assessment and plan Assessment and plan: Taken from progress note () on 04/29/18 --Acute kidney injury; secondary to ATN --Failure to thrive; poor oral intake; --Type 2 diabetes mellitus; well controlled, blood sugars on the lower range --History of hypertension; patient's blood pressures are in the normal range --Diabetic Neuropathy; continue gabapentin --Dyslipidemia; on statin, low cholesterol diet --Mild malnutrition; nutrition supplements potential and supportive care Clinical Findings Show: Please provide an appropriate diagnosis clarifying the Etiology and Acuity of this clinical scenario: [x ] Metabolic Encephalopathy [ ] Toxic Encephalopathy [ ] Toxic - Metabolic Encephalopathy [ ] Septic Encephalopathy with Sepsis [ ] Septic Encephalopathy without Sepsis [ ] Acute Hepatic Encephalopathy [ ] Subacute Hepatic Encephalopathy [ ] Encephalopathy [ ] Other: [ ] Unable To Determine [ ]Comment/Explanation: Present on Admission: [x ] Yes (Y) [ ] Clinically undeterminable (W) [ ] No (N) Please also document response in your Progress Notes and/or Discharge Summary and indicate if the condition was present on admission. MTDD
--- NOTE | 2018-04-29 15:57 | Progress Note ---
Assessment and Plan Acute Kidney injury likely due to pre-renal from Poor appetite in the setting of Valsartan: -Renal US shows chronicity, may have CKD. -Continue Hydration with 1/2 NS at 75 cc/hr, Cr improved. -Holding Valsartan -Renally dose all meds and avoid nephrotoxic meds Hyperkalemia: -Better with Kayxelate -Low K diet Hypernatremia, Hypertonic: -Hydrate with 1/2 NS at 75 cc/hr Confusion: -CT brain -ve for acute changes, does have h/o dementia -Per primary Essential Hypertension: -Titrate BP meds to keep SBP <130 -Avoid RAAS inhibitors like Valsartan for now Diabetes Mellitus type 2: -On ISS -Per primary Hyperlipidemia, chronic: -Can continue home statin With this note, I want to thank Dr Verma for allowing me to participate in the care of Ms Reddy, i will continue to follow the patient quite closely with you, don't hesitate to call me on phone if any questions. Julio López MD [phone] Subjective Date of service: 04/29/18 Interval history: No acute events overnight. Objective - Exam Narrative Exam: GE: Awake, non verbal HEENT:Normocephalic Neck:No JVD Chest:CTAB CVS:RRR Abd:Soft/NT/ND/BS+ Ext:No cce UG:No coppola - Vital Signs Vital signs: Vital Signs - 12hr 04/29/18 04/29/18 04/29/18 07:16 07:21 07:26 Temperature 98.2 F Pulse Rate 62 Pulse Rate [ 65 72 Anterior Bilateral Throughout] Pulse Rate [ Right Radial] Respiratory 18 Rate Respiratory 18 18 Rate [Anterior Bilateral Throughout] Blood Pressure 95/58 Blood Pressure [Left] O2 Sat by Pulse 94 Oximetry 04/29/18 04/29/18 04/29/18 10:00 10:32 10:34 Temperature Pulse Rate 127 H 127 H Pulse Rate [ Anterior Bilateral Throughout] Pulse Rate [ 127 H Right Radial] Respiratory Rate Respiratory Rate [Anterior Bilateral Throughout] Blood Pressure 145/85 145/85 Blood Pressure [Left] O2 Sat by Pulse 96 Oximetry 04/29/18 14:00 Temperature 98.4 F Pulse Rate 77 Pulse Rate [ Anterior Bilateral Throughout] Pulse Rate [ Right Radial] Respiratory 18 Rate Respiratory Rate [Anterior Bilateral Throughout] Blood Pressure Blood Pressure 119/67 [Left] O2 Sat by Pulse 96 Oximetry - Lab 04/27/18 07:55 04/29/18 11:29 Most recent lab results Calcium 10.0 mg/dL (8.4-10.2) 04/29/18 11:29 Urine Creatinine 90.3 mg/dL (0.1-20.0) H 04/27/18 09:00 Urine Sodium 118 mmol/L 04/27/18 09:00 Urine Total Protein 24 mg/dL (5-11.8) H 04/27/18 09:00
[2018-04-29] MEDS: ARICEPT PO SCH (22:05)
[2018-04-29] MEDS: PRAVACHOL PO SCH (22:06)
[2018-04-29] MEDS: NEURONTIN PO SCH (22:06)
[2018-04-30] MEDS: HumuLIN R SUB-Q SCH ×4 (07:39→22:11)
[2018-04-30] MEDS ORDERED: PULMICORT IH SCH (09:00)
[2018-04-30] MEDS: HEPARIN SUB-Q SCH ×2 (09:23→22:59)
[2018-04-30] MEDS: PROTONIX PO SCH (09:24)
[2018-04-30] MEDS: EFFEXOR PO SCH (09:25)
[2018-04-30] MEDS: celeXA PO SCH (09:25)
[2018-04-30] MEDS: NORVASC PO SCH (09:27)
[2018-04-30] MEDS: LOPRESSOR PO SCH ×2 (09:39→22:54)
--- NOTE | 2018-04-30 10:19 | Progress Note ---
Assessment and Plan Acute Kidney injury likely due to pre-renal from Poor appetite in the setting of Valsartan: -Renal US shows chronicity, may have CKD. -Cr normalized, will d/c IVF -Holding Valsartan -Renally dose all meds and avoid nephrotoxic meds Hyperkalemia: -Low K diet Hypernatremia, Hypertonic: -resolved - will d/c 1/2 NS as above Confusion: -CT brain -ve for acute changes, does have h/o dementia -Per primary Essential Hypertension: -Titrate BP meds to keep SBP <130 Diabetes Mellitus type 2: -On ISS -Per primary Hyperlipidemia, chronic: -Can continue home statin Subjective Date of service: 04/30/18 Principal diagnosis: acute renal failure Interval history: appears comfortable, no family at bedside Objective - Vital Signs Vital signs: Vital Signs - 12hr 04/30/18 04/30/18 04/30/18 02:00 09:27 09:39 Temperature 97.1 F L Pulse Rate 55 L 55 L 55 L Respiratory 18 Rate Blood Pressure 120/56 120/56 Blood Pressure 108/62 [Left] O2 Sat by Pulse 98 Oximetry - General Appearance General appearance: well-developed, well-nourished EENT: ATNC, PERRL, mucous membranes moist Neck: no JVD, no carotid bruit Respiratory: Present: Clear to Ascultation. Absent: Rales, Ronchi Cardiology: regular, S1S2 Gastrointestinal: normoactive bowel sounds, no tenderness, no distended, no guarding Integumentary: no rash, warm and dry Neurologic: no focal deficit, no asterixis Musculoskeletal: other (no edema in BLE) Psychiatric: cooperative - Lab 04/27/18 07:55 04/29/18 11:29 Most recent lab results Calcium 10.0 mg/dL (8.4-10.2) 04/29/18 11:29 Urine Creatinine 90.3 mg/dL (0.1-20.0) H 04/27/18 09:00 Urine Sodium 118 mmol/L 04/27/18 09:00 Urine Total Protein 24 mg/dL (5-11.8) H 04/27/18 09:00
[2018-04-30] MEDS: BROVANA NEBU IH SCH (11:25)
--- NOTE | 2018-04-30 13:29 | Cat Scan Report ---
FINAL REPORT EXAM: CT HEAD/BRAIN WO CON HISTORY: Altered Mental Status TECHNIQUE: CT of the Head without IV contrast. PRIORS: CT head April 25, 2018. FINDINGS: Decreased attenuation regions in the periventricular and subcortical white matter are nonspecific and may represent small vessel ischemic disease, encephalopathy, edema, or a demyelinating process. Small vessel ischemic disease (leukoaroaiosis) favored. Vascular calcifications. Punctate encephalomalacia in both basal ganglias and thalami suggest chronic ischemic disease. There is no evidence for acute ischemia. There is no hemorrhage. There is no midline shift. There is no hydrocephalus. There is no mass. Age appropriate ferris-white matter attenuation is noted. Senescent bilateral basal ganglia calcifications identified. [id number] atrophy. There is no calvarial fracture. The temporal bones demonstrate aerated mastoid air cells. The middle ears appear unremarkable. Paranasal sinuses are unremarkable. Globes are intact. IMPRESSION: No acute intracranial findings. Chronic ischemic disease. Atrophy, mild to moderate.
--- NOTE | 2018-04-30 17:36 | Progress Note ---
Assessment and Plan Assessment and plan: --Metabolic encephalopathy; multifactorial Supportive care, patient is more lethargic today, check CT head without contrast --Failure to thrive; poor oral intake; Patient has poor dentition, speech therapist recommended. Pured diet New supportive care --Type 2 diabetes mellitus; well controlled, blood sugars on the lower range Hold oral hypoglycemics, closely monitor, HbA1c 5.9 --History of hypertension; patient's blood pressures are in the normal range IV fluids, hold antihypertensives --Acute kidney injury; secondary to ATN; resolved --Diabetic Neuropathy; continue gabapentin --Dyslipidemia; on statin, low cholesterol diet --Mild malnutrition; nutrition supplements potential and supportive care --DVT prophylaxis; Lovenox --Full CODE STATUS --Physical therapy occupational therapy DC planning. Case management; possible SNF versus home with home health When medically stable possible DC tomorrow if stable Plan of care discussed in detail with patient's daughter. At the bedside Possible discharge in 1-2 days if stable, SNF versus home with home health Initially patient was to be discharged today however due to altered level of consciousness Closely monitor the patient overnight History Interval history: Patient seen and examined medical records reviewed Today patient is lethargic, confused Minimally communicative Vital signs reviewed No new events reported by the nursing Hospitalist Physical - Constitutional Vitals: Temp Pulse Resp BP Pulse Ox 97.6 F 65 18 122/71 100 04/30/18 13:58 04/30/18 13:58 04/30/18 13:58 04/30/18 13:58 04/30/18 13:58 General appearance: Present: no acute distress, well-nourished - EENT Eyes: Present: PERRL, EOM intact - Neck Neck: Present: supple, normal ROM - Respiratory Respiratory effort: normal Respiratory: bilateral: diminished, negative: rales, rhonchi, wheezing - Cardiovascular Rhythm: regular Heart Sounds: Present: S1 & S2 - Extremities Extremities: no ischemia Extremity abnormal: edema - Abdominal General gastrointestinal: soft, non-tender, non-distended, normal bowel sounds - Integumentary Integumentary: Present: clear, warm - Psychiatric Psychiatric: appropriate mood/affect, cooperative - Neurologic Neurologic: CNII-XII intact, moves all extremities Results - Labs CBC & Chem 7: 04/27/18 07:55 04/29/18 11:29 Labs: Laboratory Last Values WBC 7.9 K/mm3 (4.5-11.0) 04/27/18 07:55 RBC 4.07 M/mm3 (3.65-5.03) 04/27/18 07:55 Hgb 11.7 gm/dl (10.1-14.3) 04/27/18 07:55 Hct 36.4 % (30.3-42.9) 04/27/18 07:55 MCV 89 fl (79-97) 04/27/18 07:55 MCH 29 pg (28-32) 04/27/18 07:55 MCHC 32 % (30-34) 04/27/18 07:55 RDW 16.3 % (13.2-15.2) H 04/27/18 07:55 Plt Count 232 K/mm3 (140-440) 04/27/18 07:55 Lymph % (Auto) 31.5 % (13.4-35.0) 04/27/18 07:55 [place] % (Auto) Paper Sorter 04/27/18 07:55 Eos % (Auto) 3.0 % (0.0-4.3) 04/27/18 07:55 Baso % (Auto) 0.7 % (0.0-1.8) 04/27/18 07:55 Lymph # 2.5 K/mm3 (1.2-5.4) 04/27/18 07:55 [place] # 0.6 K/mm3 (0.0-0.8) 04/27/18 07:55 Eos # 0.2 K/mm3 (0.0-0.4) 04/27/18 07:55 Baso # 0.1 K/mm3 (0.0-0.1) 04/27/18 07:55 Seg Neutrophils % 57.6 % (40.0-70.0) 04/27/18 07:55 Seg Neutrophils # 4.6 K/mm3 (1.8-7.7) 04/27/18 07:55 Sodium 140 mmol/L (137-145) 04/29/18 11:29 Potassium 3.8 mmol/L (3.6-5.0) 04/29/18 11:29 Chloride 98.0 mmol/L (98-107) 04/29/18 11:29 Carbon Dioxide 27 mmol/L (22-30) 04/29/18 11:29 Anion Gap 19 mmol/L 04/29/18 11:29 BUN 9 mg/dL (7-17) 04/29/18 11:29 Creatinine 0.7 mg/dL (0.7-1.2) 04/29/18 11:29 Estimated GFR > 60 ml/min 04/29/18 11:29 BUN/Creatinine Ratio 13 % 04/29/18 11:29 Glucose 171 mg/dL (65-100) H 04/29/18 11:29 POC Glucose 120 (70-105) H 04/30/18 16:15 Lactic Acid 1.00 mmol/L (0.7-2.0) 04/26/18 02:37 Calcium 10.0 mg/dL (8.4-10.2) 04/29/18 11:29 Total Bilirubin 0.30 mg/dL (0.1-1.2) 04/26/18 08:31 AST 17 units/L (5-40) 04/26/18 08:31 ALT 9 units/L (7-56) 04/26/18 08:31 Alkaline Phosphatase 57 units/L (35-129) 04/26/18 08:31 Total Creatine Kinase 100 units/L (30-135) 04/26/18 15:10 CK-MB (CK-2) 3.1 ng/mL (0.0-4.0) 04/26/18 07:26 CK-MB (CK-2) Rel Index 2.7 (0-4) 04/26/18 07:26 Troponin T 0.024 ng/mL (0.00-0.029) 04/26/18 07:26 Total Protein 7.2 g/dL (6.3-8.2) 04/26/18 08:31 Albumin 3.5 g/dL (3.9-5) L 04/26/18 08:31 Albumin/Globulin Ratio 0.9 % 04/26/18 08:31 Triglycerides 127 mg/dL (2-149) 04/26/18 02:37 Cholesterol 148 mg/dL (50-199) 04/26/18 02:37 LDL Cholesterol Direct 81 mg/dL (50-130) 04/26/18 02:37 HDL Cholesterol 49 mg/dL (40-59) 04/26/18 02:37 Cholesterol/HDL Ratio 3.02 % 04/26/18 02:37 TSH 4.960 mlU/mL (0.270-4.200) H 04/26/18 02:37 Free T4 1.34 ng/dL (0.76-1.46) 04/26/18 04:51 Urine Color Yellow (Yellow) 04/27/18 09:00 Urine Turbidity Clear (Clear) 04/27/18 09:00 Urine pH 5.0 (5.0-7.0) 04/27/18 09:00 Ur Specific [place] 1.017 (1.003-1.030) 04/27/18 09:00 Urine Protein <15 mg/dl mg/dL (Negative) 04/27/18 09:00 Urine Glucose (UA) Neg mg/dL (Negative) 04/27/18 09:00 Urine Ketones 20 mg/dL (Negative) 04/27/18 09:00 Urine Blood Neg (Negative) 04/27/18 09:00 Urine Nitrite Neg (Negative) 04/27/18 09:00 Urine Bilirubin Neg (Negative) 04/27/18 09:00 Urine Urobilinogen < 2.0 mg/dL (<2.0) 04/27/18 09:00 Ur Leukocyte Esterase Tr (Negative) 04/27/18 09:00 Urine WBC (Auto) 4.0 /HPF (0.0-6.0) 04/27/18 09:00 Urine RBC (Auto) 1.0 /HPF (0.0-6.0) 04/27/18 09:00 U Epithel Cells (Auto) 2.0 /HPF (0-13.0) 04/27/18 09:00 Urine Bacteria (Auto) 1+ /HPF (Negative) 04/27/18 09:00 Urine Mucus 3+ /HPF 04/27/18 09:00 Urine Yeast (Budding) Few /HPF 04/27/18 09:00 Urine Eosinophils None seen (None Seen) 04/26/18 09:00 Urine Creatinine 90.3 mg/dL (0.1-20.0) H 04/27/18 09:00 Protein/Creatinin Ratio 0.27 04/27/18 09:00 Urine Sodium 118 mmol/L 04/27/18 09:00 Urine Urea Nitrogen 963 04/27/18 09:00 Urine Total Protein 24 mg/dL (5-11.8) H 04/27/18 09:00 Urine Opiates Screen Presumptive negative 04/26/18 02:56 Urine Methadone Screen Presumptive negative 04/26/18 02:56 Ur Barbiturates Screen Presumptive negative 04/26/18 02:56 Ur Phencyclidine Scrn Presumptive positive 04/26/18 02:56 Ur Amphetamines Screen Presumptive positive 04/26/18 02:56 U Benzodiazepines Scrn Presumptive negative 04/26/18 02:56 Urine Cocaine Screen Presumptive negative 04/26/18 02:56 U Marijuana (THC) Screen Presumptive negative 04/26/18 02:56 Drugs of Abuse Note Disclamer 04/26/18 02:56
[2018-04-30] MEDS: ARICEPT PO SCH (23:00)
[2018-04-30] MEDS: PRAVACHOL PO SCH (23:00)
[2018-05-01 05:27] LABS: Basophils # (Auto) 0.1 K/mm3 (0.0-0.1); Basophils % (Auto) 0.9 % (0.0-1.8); Eosinophils # (Auto) 0.4 K/mm3 (0.0-0.4); Eosinophils % (Auto) 4.5 % (0.0-4.3); Hematocrit 34.3 % (30.3-42.9); Hemoglobin 11.3 gm/dl (10.1-14.3); Lymphocytes # (Auto) 3.2 K/mm3 (1.2-5.4); Lymphocytes % (Auto) 35.6 % (13.4-35.0); Mean Corpuscular HGB Conc 33 % (30-34); Mean Corpuscular Hemoglobin 29 pg (28-32); Mean Corpuscular Volume 88 fl (79-97); Monocytes # (Auto) 0.6 K/mm3 (0.0-0.8); Monocytes % (Auto) 6.6 % (0.0-7.3); Platelet Count 195 K/mm3 (140-440); Red Blood Count 3.88 M/mm3 (3.65-5.03); Red Cell Distribution Width 16.2 % (13.2-15.2)
[2018-05-01 05:47] LABS: BUN/Creatinine Ratio 17; Blood Urea Nitrogen 10 mg/dL (7-17); Calcium 9.5 mg/dL (8.4-10.2); Hemolysis Index 9
[2018-05-01] MEDS: HumuLIN R SUB-Q SCH (07:19)
[2018-05-01] MEDS: EFFEXOR PO SCH (10:08)
[2018-05-01] MEDS: PROTONIX PO SCH (10:08)
[2018-05-01] MEDS: HEPARIN SUB-Q SCH (10:09)
[2018-05-01] MEDS: LOPRESSOR PO SCH ×2 (10:09→10:12)
[2018-05-01] MEDS: NORVASC PO SCH (10:10)
[2018-05-01 10:11] VITALS: BP 120/60
--- NOTE | 2018-05-01 11:19 | Discharge Summary ---
Providers - Providers Date of Admission: 04/26/18 04:07 Date of discharge: 05/01/18 Attending physician: KOBE JOHNSON 04/26/18 04:18 Consult to Physician [CONS] Routine Comment: called /mckay Consulting Provider: MAMADOU MUNGUIA Physician Instructions: Reason For Exam: GOLDEN 04/28/18 08:03 Speech Therapy Evaluation and Treat [CONS] Routine Reason For Exam: swallow evaluation 04/29/18 10:12 Physical Therapy Evaluation and Treat [CONS] Routine Comment: Reason For Exam: Decline in functional mobility Mode of Transport?: Walker Weight bearing status?: Full wt bearing Assistive devices?: Yes: Walker Primary care physician: SCOTTIE LR Hospitalization Reason for admission: altered level of consciousness/poor oral intake Condition: Stable Pertinent studies: CT head without contrast Chest x-ray Renal ultrasound Repeat CT head Hospital course: 78-year-old -[place] female patient with multiple medical problems was brought to the emergency room from assisted with altered level of consciousness and poor oral intake and refusing to eat Patient was initially evaluated and admitted to the hospital symptomatically managed Patient was on multiple home medications, carefully reviewed the medications and appropriate medicines for continued Noted to have acute kidney injury, evaluated by nephrology, managed with IV hydration significantly improved Renal ultrasound showed medical disease, Patient was also evaluated by speech and swallow, recommend pured diet Patient's blood sugars blood pressures closely monitored medications were optimized In appropriate medications were discontinued, Received physical therapy and occupational therapy, periodically discussed with patient's daughter the treatment and discharge plan Daughter requested to be discharged home with home health Today she is comfortable in bed alert and awake responding to simple questions No new complaints, Vital signs stable, physical examination no new changes Patient is hemodynamically and clinically stable at discharge Discharge diagnosis; --Metabolic encephalopathy; multifactorial --Failure to thrive; poor oral intake; --History of Type 2 diabetes mellitus; blood sugars are normal levels, no need for diabetic medications --History of hypertension; patient's blood pressures are in the normal range --Acute kidney injury; secondary to ATN; resolved --Diabetic Neuropathy; patient is being lethargic, advised to hold gabapentin --Dyslipidemia; on statin, --Mild malnutrition; nutrition supplements --Full CODE STATUS --Physical therapy occupational therapy Disposition: [id number]/TX-06 HOME UNDER HOME [facility] Time spent for discharge: 32 min Core Measure Documentation - Palliative Care Palliative Care/ Comfort Measures: Not Applicable - Core Measures Any of the following diagnoses?: none Exam - Constitutional Vitals: Temp Pulse Resp BP Pulse Ox 99 F 71 18 120/60 94 05/01/18 02:00 05/01/18 10:12 05/01/18 02:00 05/01/18 10:12 05/01/18 08:45 General appearance: Present: no acute distress, well-nourished - EENT Eyes: Present: PERRL, EOM intact - Neck Neck: Present: supple, normal ROM - Respiratory Respiratory effort: normal - Cardiovascular Rhythm: regular Heart Sounds: Present: S1 & S2 - Extremities Extremities: no ischemia, pulses intact - Abdominal General gastrointestinal: Present: soft, non-tender, non-distended, distended - Integumentary Integumentary: Present: clear, warm - Musculoskeletal Musculoskeletal: strength equal bilaterally, generalized weakness - Psychiatric Psychiatric: appropriate mood/affect, other (confused at times) - Neurologic Neurologic: moves all extremities (residual weakness) Plan Activity: advance as tolerated, fall precautions Diet: other (pured diet, advance as tolerated) Special Instructions: physical therapy, occupational therapy Additional Instructions: Advised fall precautions. Ambulate as tolerated. Physical therapy occupational therapy. Use cane / walker up as needed Follow up with: SCOTTIE LR MD [Primary Care Provider] - 3-5 Days Prescriptions: Docusate Sodium [Colace CAP] 100 mg PO BID PRN #20 capsule PRN Reason: Constipation Pantoprazole [Protonix TAB] 40 mg PO QDAY #30 tablet
--- NOTE | 2018-05-01 12:38 | Progress Note ---
Assessment and Plan Acute Kidney injury likely due to pre-renal from decrease oral intake in the setting of Valsartan: -Renal function reivewed. Serum creatinine 0.6, normalized -Avoid Nephrotoxic agents -Monitor I/O's -Valsartan on hold -Encourage oral hydration -Renally dose all medications -Monitor renal function -Possible discharge today Hyperkalemia,Resolved: -Potassium level 3.8 today -Low K diet Hypernatremia, Hypertonic: -Sodium level 139 today -Resolved Confusion: -CT brain -ve for acute changes -History of Dementia -As per primary Essential Hypertension: -Blood pressures are stable -Titrate BP meds to keep SBP <130 Diabetes Mellitus type 2: -On Insulin -Per primary Hyperlipidemia, chronic: -On Pravastatin Subjective Date of service: 05/01/18 Principal diagnosis: acute renal failure Interval history: Patient seen sitting up in wheelchair at bedside eating lunch. On Fall precautions. Does not communicate. Objective - Vital Signs Vital signs: Vital Signs - 12hr 05/01/18 05/01/18 05/01/18 02:00 08:45 10:00 Temperature 99 F Pulse Rate 75 Pulse Rate [ 71 Right Radial] Respiratory 18 Rate Blood Pressure Blood Pressure 131/51 [Left] O2 Sat by Pulse 94 94 Oximetry 05/01/18 05/01/18 10:10 10:12 Temperature Pulse Rate 71 71 Pulse Rate [ Right Radial] Respiratory Rate Blood Pressure 120/60 120/60 Blood Pressure [Left] O2 Sat by Pulse Oximetry - General Appearance General appearance: well-developed, appears stated age EENT: ATNC, PERRL Neck: no JVD, supple Respiratory: Present: Clear to Ascultation Cardiology: regular, S1S2 Gastrointestinal: normoactive bowel sounds Integumentary: warm and dry Neurologic: other (Awake but does not communicate) Musculoskeletal: decreased ROM - Lab 05/01/18 04:58 05/01/18 04:58 Most recent lab results Calcium 9.5 mg/dL (8.4-10.2) 05/01/18 04:58 Urine Creatinine 90.3 mg/dL (0.1-20.0) H 04/27/18 09:00 Urine Sodium 118 mmol/L 04/27/18 09:00 Urine Total Protein 24 mg/dL (5-11.8) H 04/27/18 09:00
== END 2018-05-01 13:00 | disposition home health service (06) | DRG 70 ==
LOC: ED 23:30 → 2B-ACE 04-26 04:07
PROVIDERS: ADMIT Internal Medicine; ATTEND Internal Medicine
DX: G93.41 Metabolic encephalopathy (principal); N17.0 Acute kidney failure with tubular necrosis; E44.1 Mild protein-calorie malnutrition; E87.0 Hyperosmolality and hypernatremia; R62.7 Adult failure to thrive; I10 Essential (primary) hypertension; E11.40 Type 2 diabetes mellitus with diabetic neuropathy, unspecified; E78.5 Hyperlipidemia, unspecified; F03.90 Unspecified dementia, unspecified severity, without behavioral disturbance, psychotic disturbance, mood disturbance, and anxiety; J44.9 Chronic obstructive pulmonary disease, unspecified; K21.9 Gastro-esophageal reflux disease without esophagitis; F41.9 Anxiety disorder, unspecified; E87.5 Hyperkalemia; R41.0 Disorientation, unspecified; Z88.5 Allergy status to narcotic agent; Z88.8 Allergy status to other drugs, medicaments and biological substances; Z68.26 Body mass index [BMI] 26.0-26.9, adult; Z86.73 Personal history of transient ischemic attack (TIA), and cerebral infarction without residual deficits; Z90.710 Acquired absence of both cervix and uterus; Z87.891 Personal history of nicotine dependence
CPT/HCPCS: 36415; 70450; 71045; 76770; 80048; 80053; 80061; 80307; 81001; 82140; 82550; 82553; 82570; 82962; 84156; 84300; 84439; 84443; 84484; 84520; 85025; 86403; 87040; 87086; 87116; 89050; 93005; 93010; 94640; 94760; 96360; 96361; A9270-GY; G8978-GP; G8979-GP; G8996-GN; G8997-GN; G8998-GN; J1644; J1815; J7040

== ENCOUNTER 2018-12-25 16:08 | Inpatient (IN) | payer MEDICARE ==
--- NOTE | 2018-12-25 16:43 | Emergency Department Report ---
Blank Doc - Documentation Documentation: This is a 78-year-old female that presents with AMS. Daugther is present with patient. Stated is not eating normally for the past few days. This initial assessment/diagnostic orders/clinical plan/treatment(s) is/are subject to change based on patient's health status, clinical progression and re- assessment by fellow clinical providers in the ED. Further treatment and workup at subsequent clinical providers discretion. Patient/guardians urged not to elope from the ED as their condition may be serious if not clinically assessed and managed. Initial orders include: 1- Patient sent to MAIN ED for further evaluation and treatment 2- Labs 3- EKG
[2018-12-25] MEDS ORDERED: NACL 0.9% 1000 ML IV ONE (16:47)
[2018-12-25] MEDS ORDERED: TYLENOL PR ONE (17:03)
[2018-12-25] MEDS ORDERED: ROCEPHIN/NS 1 GM/50 ML 1 GM/50 ML BAG IV ONE (17:03)
[2018-12-25] MEDS ORDERED: NACL 0.9% 500 ML 500 ML IV ONE (17:03)
[2018-12-25] MEDS ORDERED: NACL 0.9% 1000 ML 2,000 ML IV ONE (17:03)
--- NOTE | 2018-12-25 17:04 | Emergency Department Report ---
ED General Adult HPI - General Chief complaint: Medical Clearance Stated complaint: NOT EATING OR SPEAKING Time Seen by Provider: 12/25/18 16:41 Source: patient, family, EMS (ems notes not available at time of chart dictation), RN notes reviewed, old records reviewed Mode of arrival: Stretcher Limitations: Altered Mental Status, Physical Limitation - History of Present Illness Initial comments: This is a 78-year-old female who is not known to this provider previously. Her primary care doctor is Dr. Stephenson. Has a past medical history of multifactorial metabolic encephalopathy, failure to thrive, type 2 diabetes, hypertension, acute renal insufficiency, malnutrition, full CODE STATUS, high cholesterol The patient is accompanied by her daughter. History is entirely obtained and the patient's daughter. The patient has been living with her daughter for the past 3 months. The patient has had a decline in her functional status over the past few days. Patient's daughter endorses decreased appetite, lethargy, fatigue and generalized weakness. No vomiting, low-grade fever. No trauma. The symptoms are intermittent since Sunday, but getting worse. They do not appear to have exacerbating or relieving factors. As for the patient's daughter, no hospitalizations within the past 3 months, no recent antibiotics within the past 3 months. The patient is nonverbal, but awake, and follow some commands. -: Gradual, days(s) Severity scale (0 -10): 0 Consistency: intermittent Improves with: none Worsens with: none Associated Symptoms: confusion, nausea/vomiting, weakness - Related Data Home Medications Medication Instructions Recorded Confirmed Last Taken Metoprolol Tartrate 25 mg PO BID 04/26/18 12/25/18 Unknown amLODIPine [Norvasc] 5 mg PO DAILY 04/26/18 12/25/18 Unknown Previous Rx's Medication Instructions Recorded Last Taken Type Pantoprazole [Protonix TAB] 40 mg PO QDAY #30 tablet 05/01/18 Unknown Rx Allergies Allergy/AdvReac Type Severity Reaction Status Date / Time prednisone Allergy Intermediate Swelling Verified 07/07/13 07:21 codeine Allergy Mild Itching Verified 07/07/13 07:21 ED Review of Systems ROS: Stated complaint: NOT EATING OR SPEAKING Other details as noted in HPI Comment: Unobtainable due to pts medical conditions Constitutional: fever, malaise, weakness Cardiovascular: denies: syncope Gastrointestinal: other (decreased appetite, decreased oral intake). denies: vomiting, diarrhea Neurological: weakness ED Past Medical Hx - Past Medical History Hx Hypertension: Yes Hx CVA: Yes (1998) Hx Heart Attack/AMI: No Hx Congestive Heart Failure: No Hx Diabetes: Yes (Pt has had diabetes for more than 20 years.) Hx Deep Vein Thrombosis: No Hx Pulmonary Embolism: No Hx GERD: Yes Hx Liver Disease: No Hx Renal Disease: No Hx Sickle Cell Disease: No Hx Arthritis: No Hx Headaches / Migraines: No Hx Seizures: No Hx Kidney Stones: No Hx Psychiatric Treatment: No Hx Asthma: No Hx COPD: Yes Hx Tuberculosis: No Hx Dementia: Yes Hx HIV: No Additional medical history: Bronchitis - Surgical History Past Surgical History?: Yes Hx Coronary Stent: No Hx Open Heart Surgery: No Hx Pacemaker: No Hx Internal Defibrillator: No Hx Cholecystectomy: No Hx Appendectomy: No Hx Breast Surgery: Yes (BREAST REDUCTION IN 1994) Additional Surgical History: HYSTERECTOMY. Stimulation Implant Pump [place] [address] Coello for bowel control - Social History Smoking Status: Never Smoker Substance Use Type: None - Medications Home Medications: Home Medications Medication Instructions Recorded Confirmed Last Taken Type Metoprolol Tartrate 25 mg PO BID 04/26/18 12/25/18 Unknown History amLODIPine [Norvasc] 5 mg PO DAILY 04/26/18 12/25/18 Unknown History Pantoprazole [Protonix TAB] 40 mg PO QDAY #30 tablet 05/01/18 12/25/18 Unknown Rx ED Physical Exam - General Limitations: Altered Mental Status, Physical Limitation General appearance: anxious - Head Head exam: Present: atraumatic, normocephalic - Eye Eye exam: Present: normal appearance, EOMI - ENT ENT exam: Present: mucous membranes dry - Neck Neck exam: Present: normal inspection, full ROM. Absent: tenderness, meningismus - Respiratory Respiratory exam: Present: decreased breath sounds. Absent: respiratory distress - Cardiovascular Cardiovascular Exam: Present: normal rhythm, tachycardia, normal heart sounds. Absent: systolic murmur, diastolic murmur, rubs, gallop - GI/Abdominal GI/Abdominal exam: Present: soft, tenderness, other (there is suprapubic and left lower quadrant tenderness. There is no rebound, guarding or peritoneal signs). Absent: distended, guarding, rebound, rigid, pulsatile mass - Rectal Rectal exam: Present: normal inspection (Brown stool on external rectal examination. Chaperoned by nurse Dick) - Extremities Exam Extremities exam: Present: normal inspection, full ROM, other (patient moving 4 extremities spontaneously and to command. 1+ pulses noted in the upper extremities.) - Back Exam Back exam: Present: normal inspection, full ROM. Absent: tenderness, CVA tenderness (R), paraspinal tenderness, vertebral tenderness - Neurological Exam Neurological exam: Present: altered (altered, but awake, follows commands.), other (moving 4 extremities spontaneously and to command. Patient nonverbal. Unable to perform detailed neurologic examination secondary to acute encephalopathy) - Psychiatric Psychiatric exam: Present: anxious - Skin Skin exam: Present: warm, dry, intact, normal color. Absent: rash ED Course Vital Signs 12/25/18 16:43 Temperature 100.1 F H Pulse Rate 120 H Respiratory 20 Rate Blood Pressure 120/65 O2 Sat by Pulse 96 Oximetry - Reevaluation(s) Reevaluation #1: 12/25/18 17:31 Differential diagnosis, including but not limited to: Bacteremia, viremia, pneumonia, intracranial lesion, intra-abdominal infection, urinary tract infection Assessment and plan: 78-year-old female with generalized weakness, fever to 100.5, tachycardia, dry mucous membranes, suspect invasive bacterial illness. We will maximally resuscitate the patient with aggressive IV fluids, and ceftriaxone. We will obtain x-ray of her chest, urinalysis, CT scan of the abdomen and pelvis and head. Currently she is protecting her airway at this time, and blood pressure is acceptable. As per discussion with the daughter, patient is a full code patient. Prognosis is guarded, but we will maximally resuscitate and should the patient. Reevaluation #2: 12/25/18 20:07 CT scan of the brain is negative for acute disease. CT scan of the abdomen and pelvis suggests constipation, proctitis, colitis. Lactic acid is trending upwards. Antibiotic coverage expanded. The laboratory has apparently misplaced the patient's urinalysis. Repeat sample has been collected by the nurses. We are waiting Hospital physician to call back to arrange admission. Reevaluation #3: 12/25/18 20:15 Dr Wislon accepts to the medical service ED Medical Decision Making - Lab Data Result diagrams: 12/25/18 17:24 12/25/18 17:24 Vital Signs 12/25/18 16:43 Temperature 100.1 F H Pulse Rate 120 H Respiratory 20 Rate Blood Pressure 120/65 O2 Sat by Pulse 96 Oximetry - EKG Data -: EKG Interpreted by Me EKG shows normal: sinus rhythm Rate: normal - EKG Data 12/25/18 17:47 Sinus, 95 bpm, normal axis, QTC within normal limits, motion artifact, abnormal EKG, not changed from prior from April 2018, not consistent with ST elevation myocardial infarction. - Radiology Data Radiology results: pending, report reviewed, image reviewed interpreted by me: X-ray of the chest rotated, DJD, calcified aorta noted, otherwise, no acute disease. Noncontrast CT scan of brain negative for acute disease. X-ray the chest is negative for acute disease. CT scan of the abdomen and pelvis suggests proctitis, colitis, constipation. Critical Care Time: Yes Critical care time in (mins) excluding proc time.: 35 Critical care attestation.: If time is entered above; I have spent that time in minutes in the direct care of this critically ill patient, excluding procedure time. ED Disposition Clinical Impression: Encephalopathy acute, Dehydration Sepsis Qualifiers: Sepsis type: sepsis due to unspecified organism Qualified Code(s): A41.9 - Sepsis, unspecified organism Disposition: DC-09 OP ADMIT IP TO THIS HOSP Is pt being admited?: Yes Condition: Fair Referrals: PRIMARY CARE, [Primary Care Provider] - 3-5 Days
[2018-12-25 18:15] LABS: Basophils % (Auto) 0.3 % (0.0-1.8); Eosinophils % (Auto) 0.3 % (0.0-4.3); Hematocrit 37.7 % (30.3-42.9); Hemoglobin 12.3 gm/dl (10.1-14.3); Lymphocytes # (Auto) 1.3 K/mm3 (1.2-5.4); Mean Corpuscular HGB Conc 33 % (30-34); Mean Corpuscular Volume 89 fl (79-97); Monocytes # (Auto) 1.3 K/mm3 (0.0-0.8); Monocytes % (Auto) 8.8 % (0.0-7.3); Platelet Count 297 K/mm3 (140-440); Red Blood Count 4.22 M/mm3 (3.65-5.03); Red Cell Distribution Width 15.6 % (13.2-15.2)
--- NOTE | 2018-12-25 18:17 | XRay Report ---
PROCEDURE: XR CHEST 1V AP TECHNIQUE: Chest single AP HISTORY: ams sepsis COMPARISONS: FINDINGS: The cardiac and mediastinal contours are unremarkable. No focal pulmonary infiltrate identified. No p leural fluid collection seen. Pulmonary vasculature is unremarkable IMPRESSION: Negative AP chest. This document is electronically signed by Ihsan Merchant MD., December 25 2018 06:15:47 PM ET
[2018-12-25 18:48] LABS: Alanine Aminotransferase 16 units/L (7-56); Albumin 3.1 g/dL (3.9-5); BUN/Creatinine Ratio 23; Blood Urea Nitrogen 16 mg/dL (7-17); Calcium 10.1 mg/dL (8.4-10.2); Hemolysis Index 17
--- NOTE | 2018-12-25 19:57 | Cat Scan Report ---
PROCEDURE: CT head without contrast. TECHNIQUE: Computerized tomography of the head was performed without contrast material. CT DOSE LENGTH PRODUCT: 805.42 mGycm HISTORY: Altered mental status. COMPARISONS: None currently available. FINDINGS: There is mild cerebral atrophy. There is mild evidence of chronic ischemic white matter disease. Ther e is an old lacunar infarct in the head of the left caudate nucleus. There are no mass lesions. There is no intracranial hemorrhage. The calvarium appears intact. The mastoid air cells and visualized pa ranasal sinuses are well aerated. IMPRESSION: Normal study for age. This document is electronically signed by Chau Hall MD., December 25 2018 07:55:47 PM ET
--- NOTE | 2018-12-25 20:02 | Cat Scan Report ---
PROCEDURE: CT ABDOMEN PELVIS WO CON TECHNIQUE: CT of the abdomen and pelvis without contrast HISTORY: ams sepsis abd tenderness COMPARISONS: FINDINGS: There is mild scarring noted at the lung bases. Nonenhanced images of the liver demonstrate no focal abnormality. Gallbladder appears unremarkable. Spleen demonstrates normal size. No pancreatic abnormalities are identified Kidneys demonstrate no evidence for nephrolithiasis or hydronephrosis. The adrenal glands are unremar kable. No evidence for colonic or small bowel distention. There is a large amount of formed stool within the rectosigmoid with wall thickening. Urinary bladder is unremarkable. Neurostimulator device noted with distal tip of the electrode in the right posterior lower pelvis. There is no free air identified. There is no free fluid seen. IMPRESSION: Large amount of stool within the rectosigmoid. Wall thickening may indicate proctitis/colitis. Coronary atherosclerosis. . This document is electronically signed by Ihsan Merchant MD., December 25 2018 08:00:30 PM ET
[2018-12-25] MEDS ORDERED: FLAGYL 500 MG/100 ML 500 MG/100 ML BAG IV ONE (20:06)
[2018-12-25 20:22] LABS: Amphetamine Screen,Urine PRESUMPTIVE NEGATIVE; Benzodiazepines Screen,Urine PRESUMPTIVE NEGATIVE; Cannabinoid Screen,Urine PRESUMPTIVE NEGATIVE; Cocaine Screen,Urine PRESUMPTIVE NEGATIVE; Methadone Screen,Urine PRESUMPTIVE NEGATIVE; Opiate Screen,Urine PRESUMPTIVE NEGATIVE
[2018-12-25 20:23] LABS: Bacteria,Urine 1+ /HPF (Negative); Bilirubin,Urine NEG (Negative); Blood,Urine NEG (Negative); Color,Urine Amber (Yellow); Mucus,Urine 2+ /HPF; Protein,Urine <15 mg/dL mg/dL (Negative)
[2018-12-25] MEDS ORDERED: ZOFRAN IV PRN ×2 (21:07→21:15)
[2018-12-25] MEDS ORDERED: TYLENOL PO PRN ×2 (21:07→21:15)
[2018-12-25] MEDS ORDERED: SODIUM CHLORIDE FLUSH SYRINGE 10 ML IV PRN (21:07)
[2018-12-25] MEDS ORDERED: LOVENOX SUB-Q ONE (21:10)
--- NOTE | 2018-12-25 21:18 | History and Physical Report ---
History of Present Illness Date of examination: 12/25/18 Date of admission: 12/25/18 Chief complaint: decline in functional status History of present illness: Pt is a 78 year old female with PMHx of metabolic encephalopathy, failure to thrive, type 2 diabetes, hypertension, renal insufficiency, malnutrition, hyperlipidemia who was brought to the ER for decrease in functional status for 2 days. Most of the h/o was provided by pt's daughter who states that the pt has been lethargic with generalized weakness and low-grade fever at home. She said that the symptoms started on Sunday and gradually getting worse, Pt was reported to live at home with her daughter, she is bed ridden and non verbal. Pt's daughter denies recent vomiting, diarrhea, cough or respiratory distress. Pt was seen in the ER, awake, eyes open, non communicating, no facial grimacing, chest x-ray was negative, CT of the abdomen shows abdominal wall thickening, possible proctatis/colitis, UA was negative, Labs shows WBC 15.0, lactid acid 2.90, blood glucose 201. Pt was started on IV antibiotic in the ER and admitted for further evaluation and treatment. PCP: Dr. Stephenson. Past History Past Medical History: diabetes, hypertension, hyperlipidemia, renal failure Social history: no significant social history Family history: no significant family history Medications and Allergies Allergies Allergy/AdvReac Type Severity Reaction Status Date / Time prednisone Allergy Intermediate Swelling Verified 07/07/13 07:21 codeine Allergy Mild Itching Verified 07/07/13 07:21 Home Medications Medication Instructions Recorded Confirmed Last Taken Type Metoprolol Tartrate 25 mg PO BID 04/26/18 12/25/18 Unknown History amLODIPine [Norvasc] 5 mg PO DAILY 04/26/18 12/25/18 Unknown History Pantoprazole [Protonix TAB] 40 mg PO QDAY #30 tablet 05/01/18 12/25/18 Unknown Rx Active Meds: Active Medications Acetaminophen (Tylenol) 650 mg PO Q4H PRN PRN Reason: Pain MILD(1-3)/Fever >100.5/BLAIR Ondansetron HCl (Zofran) 4 mg IV Q8H PRN PRN Reason: Nausea And Vomiting Sodium Chloride (Sodium Chloride Flush Syringe 10 Ml) 10 ml IV BID GUSTAVO Sodium Chloride (Sodium Chloride Flush Syringe 10 Ml) 10 ml IV PRN PRN PRN Reason: LINE FLUSH Review of Systems ROS unobtainable: due to mental status Exam - Constitutional Vitals: Temp Pulse Resp BP Pulse Ox 98.3 F 96 H 17 125/83 100 12/25/18 20:27 12/25/18 20:27 12/25/18 20:27 12/25/18 20:27 12/25/18 20:27 General appearance: Present: no acute distress, cachectic - EENT Eyes: Present: EOM intact - Neck Neck: Present: supple, normal ROM - Respiratory Respiratory effort: normal Respiratory: bilateral: diminished - Cardiovascular Rhythm: regular - Extremities Extremities: no ischemia Peripheral Pulses: within normal limits - Abdominal General gastrointestinal: Present: soft, tender (facial grimacing with palpation) Female genitourinary: Present: deferred - Rectal Rectal Exam: deferred - Integumentary Integumentary: Present: warm, dry - Musculoskeletal Musculoskeletal: generalized weakness - Psychiatric Psychiatric: other (unable to asssess) - Neurologic Neurologic: other (unable to assess) Results - Labs CBC & Chem 7: 12/26/18 06:18 12/25/18 17:24 Labs: Laboratory Last Values WBC 15.0 K/mm3 (4.5-11.0) H 12/25/18 17:24 RBC 4.22 M/mm3 (3.65-5.03) 12/25/18 17:24 Hgb 12.3 gm/dl (10.1-14.3) 12/25/18 17:24 Hct 37.7 % (30.3-42.9) 12/25/18 17:24 MCV 89 fl (79-97) 12/25/18 17:24 MCH 29 pg (28-32) 12/25/18 17:24 MCHC 33 % (30-34) 12/25/18 17:24 RDW 15.6 % (13.2-15.2) H 12/25/18 17:24 Plt Count 297 K/mm3 (140-440) 12/25/18 17:24 Lymph % (Auto) 9.0 % (13.4-35.0) L 12/25/18 17:24 Swain % (Auto) 8.8 % (0.0-7.3) H 12/25/18 17:24 Eos % (Auto) 0.3 % (0.0-4.3) 12/25/18 17:24 Baso % (Auto) 0.3 % (0.0-1.8) 12/25/18 17:24 Lymph # 1.3 K/mm3 (1.2-5.4) 12/25/18 17:24 Swain # 1.3 K/mm3 (0.0-0.8) H 12/25/18 17:24 Eos # 0.0 K/mm3 (0.0-0.4) 12/25/18 17:24 Baso # 0.0 K/mm3 (0.0-0.1) 12/25/18 17:24 Seg Neutrophils % 81.6 % (40.0-70.0) H 12/25/18 17:24 Seg Neutrophils # 12.2 K/mm3 (1.8-7.7) H 12/25/18 17:24 Sodium 144 mmol/L (137-145) 12/25/18 17:24 Potassium 3.8 mmol/L (3.6-5.0) 12/25/18 17:24 Chloride 98.3 mmol/L (98-107) 12/25/18 17:24 Carbon Dioxide 34 mmol/L (22-30) H 12/25/18 17:24 Anion Gap 16 mmol/L 12/25/18 17:24 BUN 16 mg/dL (7-17) 12/25/18 17:24 Creatinine 0.7 mg/dL (0.7-1.2) 12/25/18 17:24 Estimated GFR > 60 ml/min 12/25/18 17:24 BUN/Creatinine Ratio 23 % 12/25/18 17:24 Glucose 201 mg/dL (65-100) H 12/25/18 17:24 Lactic Acid 2.90 mmol/L (0.7-2.0) H* 12/25/18 19:14 Calcium 10.1 mg/dL (8.4-10.2) 12/25/18 17:24 Total Bilirubin 0.40 mg/dL (0.1-1.2) 12/25/18 17:24 AST 20 units/L (5-40) 12/25/18 17:24 ALT 16 units/L (7-56) 12/25/18 17:24 Alkaline Phosphatase 84 units/L (35-129) 12/25/18 17:24 Total Protein 7.1 g/dL (6.3-8.2) 12/25/18 17:24 Albumin 3.1 g/dL (3.9-5) L 12/25/18 17:24 Albumin/Globulin Ratio 0.8 % 12/25/18 17:24 TSH 3.220 mlU/mL (0.270-4.200) 12/25/18 17:24 Urine Color Caroline (Yellow) 12/25/18 16:44 Urine Turbidity Clear (Clear) 12/25/18 16:44 Urine pH 5.0 (5.0-7.0) 12/25/18 16:44 Ur Specific [place] 1.028 (1.003-1.030) 12/25/18 16:44 Urine Protein <15 mg/dl mg/dL (Negative) 12/25/18 16:44 Urine Glucose (UA) Neg mg/dL (Negative) 12/25/18 16:44 Urine Ketones Neg mg/dL (Negative) 12/25/18 16:44 Urine Blood Neg (Negative) 12/25/18 16:44 Urine Nitrite Neg (Negative) 12/25/18 16:44 Urine Bilirubin Neg (Negative) 12/25/18 16:44 Urine Urobilinogen 4.0 mg/dL (<2.0) 12/25/18 16:44 Ur Leukocyte Esterase Neg (Negative) 12/25/18 16:44 Urine WBC (Auto) 1.0 /HPF (0.0-6.0) 12/25/18 16:44 Urine RBC (Auto) 1.0 /HPF (0.0-6.0) 12/25/18 16:44 U Epithel Cells (Auto) 6.0 /HPF (0-13.0) 12/25/18 16:44 Urine Bacteria (Auto) 1+ /HPF (Negative) 12/25/18 16:44 Urine Mucus 2+ /HPF 12/25/18 16:44 Urine Opiates Screen Presumptive negative 12/25/18 20:04 Urine Methadone Screen Presumptive negative 12/25/18 20:04 Ur Barbiturates Screen Presumptive negative 12/25/18 20:04 Ur Phencyclidine Scrn Presumptive negative 12/25/18 20:04 Ur Amphetamines Screen Presumptive negative 12/25/18 20:04 U Benzodiazepines Scrn Presumptive negative 12/25/18 20:04 Urine Cocaine Screen Presumptive negative 12/25/18 20:04 U Marijuana (THC) Screen Presumptive negative 12/25/18 20:04 Drugs of Abuse Note Disclamer 12/25/18 20:04 Assessment and Plan Assessment and plan: 1. Metabolic encephalopathy 2. Failure to thrive 3. Uncontrolled DM type 2 4. Hypertension 5. Acute renal insufficiency 6. Protein calorie malnutrition 7. Hyperlipidemia 8. Leukocytosis 9. Hypoalbuminemia [facility]/renal perfusion Accu check ACHS with insulin per sliding scale Mon[place] neuro status q4hr/VS O2 to keep sat > 92% Keep NPO until swallow study PT/OT to eval Video swallow study Continue antibiotics DVT prophylaxis with Lovenox Advance Directives: Yes VTE prophylaxis?: Chemical Plan of care discussed with patient/family: Yes
[2018-12-25] MEDS: SODIUM CHLORIDE FLUSH SYRINGE 10 ML IV SCH (22:30)
[2018-12-26] MEDS ORDERED: MORPHINE IV PRN (05:55)
[2018-12-26 06:53] LABS: Hematocrit 32.6 % (30.3-42.9); Hemoglobin 10.8 gm/dl (10.1-14.3); Mean Corpuscular HGB Conc 33 % (30-34); Mean Corpuscular Volume 89 fl (79-97); Platelet Count 267 K/mm3 (140-440); Red Blood Count 3.68 M/mm3 (3.65-5.03); Red Cell Distribution Width 15.4 % (13.2-15.2)
[2018-12-26 07:14] LABS: BUN/Creatinine Ratio 25; Blood Urea Nitrogen 10 mg/dL (7-17); Calcium 9.2 mg/dL (8.4-10.2); Hemolysis Index 39
[2018-12-26] MEDS: HumuLIN R SUB-Q SCH ×4 (08:19→22:00)
[2018-12-26 08:52] LABS: Basophils % (Manual) 0 % (0.0-1.8); Eosinophils % (Manual) 0 % (0.0-4.3); Total Cells Counted 100
[2018-12-26 08:57] LABS: Anisocytosis 1+
[2018-12-26 08:58] LABS: Ovalocytes Few; Platelet Estimate Consistent w Auto; Poikilocytosis 1+; Target Cells Few
[2018-12-26] MEDS ORDERED: PEPCID IV SCH (10:00)
[2018-12-26] MEDS: LOVENOX SUB-Q SCH (10:07)
[2018-12-26] MEDS: SENOKOT PO SCH ×3 (10:08→22:17)
[2018-12-26] MEDS: FLAGYL 500 MG/100 ML 500 MG/100 ML BAG IV SCH ×3 (10:08→22:17)
[2018-12-26] MEDS: PEPCID IV SCH (10:08)
[2018-12-26] MEDS: SODIUM CHLORIDE FLUSH SYRINGE 10 ML IV SCH ×2 (10:09→22:17)
[2018-12-26] MEDS: D5/0.45NS 1,000 ML IV SCH (10:14)
[2018-12-26] MEDS: ROCEPHIN/NS 1 GM/50 ML 1 GM/50 ML BAG IV SCH (10:59)
--- NOTE | 2018-12-26 17:53 | Progress Note ---
Assessment and Plan Assessment and Plan 1. Metabolic encephalopathy 2. Failure to thrive 3. Uncontrolled DM type 2 4. Hypertension 5. Acute renal insufficiency 6. Protein calorie malnutrition 7. Hyperlipidemia 8. Leukocytosis 9. Hypoalbuminemia 10.Sepsis Plan IVF with D5NS for hydration/renal perfusion Accu check ACHS with insulin per sliding scale [place] neuro status q4hr/VS O2 to keep sat > 92% Keep NPO until swallow study PT/OT to eval Barium swallow study Continue antibiotics DVT prophylaxis with Lovenox Subjective Date of service: 12/26/18 Principal diagnosis: Sepsis Interval history: COntinues to be Lethargic Objective - Constitutional Vitals: Vital Signs - 12hr 12/26/18 12/26/18 12/26/18 06:58 07:59 08:30 Temperature 98.4 F 98.0 F Pulse Rate 89 91 H Respiratory 18 14 Rate Blood Pressure 121/73 132/83 O2 Sat by Pulse 100 98 100 Oximetry 12/26/18 12:54 Temperature 97.9 F Pulse Rate 83 Respiratory 16 Rate Blood Pressure 126/66 O2 Sat by Pulse 98 Oximetry General appearance: Present: no acute distress, well-nourished - EENT Eyes: PERRL, EOM intact ENT: hearing intact, clear oral mucosa Ears: bilateral: normal - Neck Neck: supple, normal ROM - Respiratory Respiratory effort: normal Respiratory: bilateral: CTA - Breasts Breasts: normal - Cardiovascular Rhythm: regular Heart Sounds: Present: S1 & S2. Absent: gallop, rub Extremities: pulses intact, No edema, normal color, Full ROM - Gastrointestinal General gastrointestinal: Present: soft, non-tender, non-distended, normal bowel sounds - Genitourinary Female genitourinary: normal - Integumentary Integumentary: clear, warm, dry - Musculoskeletal Musculoskeletal: 1, strength equal bilaterally - Neurologic Neurologic: moves all extremities - Psychiatric Psychiatric: memory intact, appropriate mood/affect, intact judgment & insight - Labs CBC & Chem 7: 12/28/18 05:54 12/28/18 05:54 Labs: Abnormal lab results 12/25/18 12/25/18 12/25/18 Range/Units 17:24 17:24 17:24 WBC 15.0 H (4.5-11.0) K/mm3 RDW 15.6 H (13.2-15.2) % Lymph % (Auto) 9.0 L (13.4-35.0) % Harper % (Auto) 8.8 H (0.0-7.3) % Harper # 1.3 H (0.0-0.8) K/mm3 Seg Neutrophils % 81.6 H (40.0-70.0) % Seg Neuts % (Manual) (40.0-70.0) % Lymphocytes % (Manual) (13.4-35.0) % Monocytes % (Manual) (0.0-7.3) % Seg Neutrophils # 12.2 H (1.8-7.7) K/mm3 Seg Neutrophils # Man (1.8-7.7) K/mm3 Monocytes # (Manual) (0.0-0.8) K/mm3 Potassium (3.6-5.0) mmol/L Carbon Dioxide 34 H (22-30) mmol/L Creatinine (0.7-1.2) mg/dL Glucose 201 H (65-100) mg/dL Lactic Acid 2.50 H* (0.7-2.0) mmol/L Albumin 3.1 L (3.9-5) g/dL 12/25/18 12/25/18 12/25/18 Range/Units 19:14 20:50 22:22 WBC (4.5-11.0) K/mm3 RDW (13.2-15.2) % Lymph % (Auto) (13.4-35.0) % Harper % (Auto) (0.0-7.3) % Harper # (0.0-0.8) K/mm3 Seg Neutrophils % (40.0-70.0) % Seg Neuts % (Manual) (40.0-70.0) % Lymphocytes % (Manual) (13.4-35.0) % Monocytes % (Manual) (0.0-7.3) % Seg Neutrophils # (1.8-7.7) K/mm3 Seg Neutrophils # Man (1.8-7.7) K/mm3 Monocytes # (Manual) (0.0-0.8) K/mm3 Potassium (3.6-5.0) mmol/L Carbon Dioxide (22-30) mmol/L Creatinine (0.7-1.2) mg/dL Glucose (65-100) mg/dL Lactic Acid 2.90 H* 2.10 H* 2.10 H* (0.7-2.0) mmol/L Albumin (3.9-5) g/dL 12/26/18 12/26/18 Range/Units 06:18 06:18 WBC 15.7 H (4.5-11.0) K/mm3 RDW 15.4 H (13.2-15.2) % Lymph % (Auto) (13.4-35.0) % Harper % (Auto) (0.0-7.3) % Harper # (0.0-0.8) K/mm3 Seg Neutrophils % (40.0-70.0) % Seg Neuts % (Manual) 79.0 H (40.0-70.0) % Lymphocytes % (Manual) 13.0 L (13.4-35.0) % Monocytes % (Manual) 8.0 H (0.0-7.3) % Seg Neutrophils # (1.8-7.7) K/mm3 Seg Neutrophils # Man 12.4 H (1.8-7.7) K/mm3 Monocytes # (Manual) 1.3 H (0.0-0.8) K/mm3 Potassium 3.4 L (3.6-5.0) mmol/L Carbon Dioxide 32 H (22-30) mmol/L Creatinine 0.4 L (0.7-1.2) mg/dL Glucose 107 H (65-100) mg/dL Lactic Acid (0.7-2.0) mmol/L Albumin (3.9-5) g/dL
[2018-12-27] MEDS: D5/0.45NS 1,000 ML IV SCH ×2 (00:27→16:00)
[2018-12-27] MEDS: FLAGYL 500 MG/100 ML 500 MG/100 ML BAG IV SCH ×3 (06:26→21:24)
[2018-12-27] MEDS: PEPCID IV SCH (10:19)
[2018-12-27] MEDS: ROCEPHIN/NS 1 GM/50 ML 1 GM/50 ML BAG IV SCH (10:19)
[2018-12-27] MEDS: SENOKOT PO SCH ×3 (10:19→21:24)
[2018-12-27] MEDS: LOVENOX SUB-Q SCH (10:19)
[2018-12-27] MEDS: SODIUM CHLORIDE FLUSH SYRINGE 10 ML IV SCH ×2 (10:20→21:24)
[2018-12-27] MEDS: HumuLIN R SUB-Q SCH ×4 (10:20→21:34)
--- NOTE | 2018-12-27 17:48 | Progress Note ---
Assessment and Plan Assessment and Plan 1. Metabolic encephalopathy 2. Failure to thrive 3. Uncontrolled DM type 2 4. Hypertension 5. Acute renal insufficiency 6. Protein calorie malnutrition 7. Hyperlipidemia 8. Leukocytosis 9. Hypoalbuminemia [facility]/renal perfusion Accu check ACHS with insulin per sliding scale Mon[place] neuro status q4hr/VS O2 to keep sat > 92% Keep NPO until swallow study PT/OT to eval Video swallow study Continue antibiotics DVT prophylaxis with Lovenox Subjective Date of service: 12/27/18 Principal diagnosis: Sepsis/Encephalopathy Interval history: COntinues to be Lethargic Objective - Constitutional Vitals: Vital Signs - 12hr 12/27/18 12/27/18 12/27/18 08:29 10:00 12:17 Temperature 99.8 F H 98.6 F Pulse Rate 98 H 75 Respiratory 20 20 Rate Blood Pressure 159/102 163/68 O2 Sat by Pulse 97 97 98 Oximetry 12/27/18 15:44 Temperature 99.7 F H Pulse Rate 88 Respiratory 20 Rate Blood Pressure 150/73 O2 Sat by Pulse 99 Oximetry - Labs CBC & Chem 7: 12/28/18 05:54 12/28/18 05:54 Labs: Abnormal lab results 12/27/18 12/27/18 12/27/18 Range/Units 09:12 12:33 16:56 POC Glucose 128 H 150 H 112 H (70-105)
[2018-12-28] MEDS: D5/0.45NS 1,000 ML IV SCH (06:10)
[2018-12-28] MEDS: FLAGYL 500 MG/100 ML 500 MG/100 ML BAG IV SCH ×3 (06:10→21:39)
[2018-12-28 06:31] LABS: Hematocrit 31.6 % (30.3-42.9); Hemoglobin 10.2 gm/dl (10.1-14.3); Mean Corpuscular HGB Conc 32 % (30-34); Mean Corpuscular Volume 89 fl (79-97); Platelet Count 277 K/mm3 (140-440); Red Blood Count 3.57 M/mm3 (3.65-5.03); Red Cell Distribution Width 15.3 % (13.2-15.2)
[2018-12-28 06:55] LABS: Alanine Aminotransferase 6 units/L (7-56); Albumin 2.3 g/dL (3.9-5); BUN/Creatinine Ratio 10; Blood Urea Nitrogen 4 mg/dL (7-17); Calcium 8.5 mg/dL (8.4-10.2); Hemolysis Index 11
[2018-12-28] MEDS: ROCEPHIN/NS 1 GM/50 ML 1 GM/50 ML BAG IV SCH (10:16)
[2018-12-28] MEDS: LOVENOX SUB-Q SCH (10:16)
[2018-12-28] MEDS: HumuLIN R SUB-Q SCH ×4 (10:16→21:39)
[2018-12-28] MEDS: SODIUM CHLORIDE FLUSH SYRINGE 10 ML IV SCH ×2 (10:17→21:39)
[2018-12-28] MEDS: PEPCID IV SCH (10:17)
[2018-12-28] MEDS: SENOKOT PO SCH ×3 (10:17→21:40)
[2018-12-28 12:14] LABS: Anisocytosis 1+; Basophils % (Manual) 0 % (0.0-1.8); Total Cells Counted 100
[2018-12-28 12:16] LABS: Platelet Estimate Consistent w Auto; Target Cells 1+
[2018-12-29] MEDS: FLAGYL 500 MG/100 ML 500 MG/100 ML BAG IV SCH ×3 (05:35→22:03)
[2018-12-29] MEDS: D5/0.45NS 1,000 ML IV SCH ×2 (05:36→14:27)
[2018-12-29] MEDS: HumuLIN R SUB-Q SCH ×4 (08:35→22:11)
[2018-12-29] MEDS: PEPCID IV SCH (09:19)
[2018-12-29] MEDS: LOVENOX SUB-Q SCH (09:19)
[2018-12-29] MEDS: SENOKOT PO SCH ×2 (09:19→22:04)
[2018-12-29] MEDS: SODIUM CHLORIDE FLUSH SYRINGE 10 ML IV SCH ×2 (09:19→22:04)
[2018-12-29] MEDS: ROCEPHIN/NS 1 GM/50 ML 1 GM/50 ML BAG IV SCH (11:57)
[2018-12-29] MEDS: HumaLOG SUB-Q SCH ×2 (16:28→22:10)
--- NOTE | 2018-12-30 02:57 | Progress Note ---
Assessment and Plan Assessment and Plan 1. Metabolic encephalopathy 2. Failure to thrive 3. Uncontrolled DM type 2 4. Hypertension 5. Acute renal insufficiency 6. Protein calorie malnutrition 7. Hyperlipidemia 8. Leukocytosis 9. Hypoalbuminemia [facility] for hydration/renal perfusion Accu check ACHS with insulin per sliding scale [place] neuro status q4hr/VS O2 to keep sat > 92% Keep NPO until swallow study PT/OT Barium swallow study Continue antibiotics DVT prophylaxis with Lovenox Subjective Date of service: 12/28/18 Principal diagnosis: Sepsis/Encephalopathy Interval history: COntinues to be Lethargic Objective - Constitutional Vitals: Vital Signs - 12hr 12/29/18 12/29/18 12/29/18 17:09 19:57 21:00 Temperature 98.7 F 98.3 F Pulse Rate 80 78 78 Respiratory 18 18 Rate Blood Pressure 106/63 119/76 O2 Sat by Pulse 97 98 Oximetry 12/29/18 21:16 Temperature Pulse Rate Respiratory Rate Blood Pressure O2 Sat by Pulse 95 Oximetry General appearance: Present: no acute distress, well-nourished - EENT Eyes: PERRL, EOM intact ENT: hearing intact, clear oral mucosa Ears: bilateral: normal - Neck Neck: supple, normal ROM - Respiratory Respiratory effort: normal Respiratory: bilateral: CTA - Breasts Breasts: normal - Cardiovascular Heart rate: 78 Rhythm: regular Heart Sounds: Present: S1 & S2. Absent: gallop, rub Extremities: pulses intact, No edema, normal color, Full ROM - Gastrointestinal General gastrointestinal: Present: soft, non-tender, non-distended, normal bowel sounds - Genitourinary Female genitourinary: normal - Integumentary Integumentary: clear, warm, dry - Musculoskeletal Musculoskeletal: generalized weakness - Neurologic Neurologic: moves all extremities - Psychiatric Psychiatric: other (Lethargic) - Allied health notes Allied health notes reviewed: nursing - Labs CBC & Chem 7: 12/28/18 05:54 12/28/18 05:54
--- NOTE | 2018-12-30 02:59 | Progress Note ---
Assessment and Plan Assessment and Plan 1. Metabolic encephalopathy 2. Failure to thrive 3. Uncontrolled DM type 2 4. Hypertension 5. Acute renal insufficiency 6. Protein calorie malnutrition 7. Hyperlipidemia 8. Leukocytosis 9. Hypoalbuminemia [facility]/renal perfusion Accu check ACHS with insulin per sliding scale [place] neuro status q4hr/VS O2 to keep sat > 92% Keep NPO until swallow study PT/OT Barium swallow study Continue antibiotics DVT prophylaxis with Lovenox Subjective Date of service: 12/28/18 Principal diagnosis: Sepsis/Encephalopathy Interval history: COntinues to be Lethargic Objective - Constitutional Vitals: Vital Signs - 12hr 12/29/18 12/29/18 12/29/18 17:09 19:57 21:00 Temperature 98.7 F 98.3 F Pulse Rate 80 78 78 Respiratory 18 18 Rate Blood Pressure 106/63 119/76 O2 Sat by Pulse 97 98 Oximetry 12/29/18 21:16 Temperature Pulse Rate Respiratory Rate Blood Pressure O2 Sat by Pulse 95 Oximetry General appearance: Present: no acute distress, well-nourished - EENT Eyes: PERRL, EOM intact ENT: hearing intact, clear oral mucosa Ears: bilateral: normal - Neck Neck: supple, normal ROM - Respiratory Respiratory effort: normal Respiratory: bilateral: CTA - Breasts Breasts: normal - Cardiovascular Rhythm: regular Heart Sounds: Present: S1 & S2. Absent: gallop, rub Extremities: pulses intact, No edema, normal color, Full ROM - Gastrointestinal General gastrointestinal: Present: soft, non-tender, non-distended, normal bowel sounds - Genitourinary Female genitourinary: normal - Integumentary Integumentary: clear, warm, dry - Musculoskeletal Musculoskeletal: 1, strength equal bilaterally - Neurologic Neurologic: moves all extremities - Psychiatric Psychiatric: memory intact, appropriate mood/affect, intact judgment & insight - Labs CBC & Chem 7: 12/28/18 05:54 12/28/18 05:54
--- NOTE | 2018-12-30 03:12 | Progress Note ---
Assessment and Plan - Patient Problems (1) Dysphagia Current Visit: Yes Status: Acute Plan to address problem: Poor po intake May need Peg tube Initiated discussin with daughter about PEG To revisit the conversation after MBS (2) Sepsis Current Visit: Yes Status: Acute Qualifiers: Sepsis type: sepsis due to unspecified organism Qualified Code(s): A41.9 - Sepsis, unspecified organism Plan to address problem: COnt IV Ceftriaxone Flagyl d/c'd-Reason for Flagyl not clear Focus of infection not clear.Maybe presumed PNA (3) Encephalopathy acute Current Visit: Yes Status: Acute Plan to address problem: Resolving Multifactorial including Sepsis and Dehydration Lactic aci level normal (4) Dehydration Current Visit: Yes Status: Acute Plan to address problem: COnt IV Fluids (5) Malnutrition Current Visit: Yes Status: Chronic Plan to address problem: Pewr dietitian (6) HTN (hypertension) Current Visit: Yes Status: Chronic Qualifiers: Hypertension type: essential hypertension Qualified Code(s): I10 - Essential (primary) hypertension Plan to address problem: BP under control Will add BP meds if necessary (7) GERD (gastroesophageal reflux disease) Current Visit: Yes Status: Chronic Qualifiers: Esophagitis presence: with esophagitis Qualified Code(s): K21.0 - Gastro- esophageal reflux disease with esophagitis Plan to address problem: COnt Protonix (8) DVT prophylaxis Current Visit: Yes Status: Acute Plan to address problem: OnLovenox and GI prophylaxis Subjective Date of service: 12/29/18 Principal diagnosis: Sepsis/Encephalopathy Interval history: More alert and responsive.Still not oriented to place and person Objective - Constitutional Vitals: Vital Signs - 12hr 12/29/18 12/29/18 12/29/18 17:09 19:57 21:00 Temperature 98.7 F 98.3 F Pulse Rate 80 78 78 Respiratory 18 18 Rate Blood Pressure 106/63 119/76 O2 Sat by Pulse 97 98 Oximetry 12/29/18 12/30/18 21:16 02:40 Temperature 98.9 F Pulse Rate 77 Respiratory 21 Rate Blood Pressure 116/57 O2 Sat by Pulse 95 100 Oximetry General appearance: Present: no acute distress, well-nourished - EENT Eyes: PERRL, EOM intact ENT: hearing intact, clear oral mucosa Ears: bilateral: normal - Neck Neck: supple, normal ROM - Respiratory Respiratory effort: normal Respiratory: bilateral: CTA - Breasts Breasts: normal - Cardiovascular Heart rate: 78 Rhythm: regular Heart Sounds: Present: S1 & S2. Absent: gallop, rub Extremities: no ischemia, pulses intact, No edema, normal color, Full ROM - Gastrointestinal General gastrointestinal: Present: soft, non-tender, non-distended, normal bowel sounds Rectal Exam: deferred - Genitourinary Female genitourinary: normal - Integumentary Integumentary: clear, warm, dry - Musculoskeletal Musculoskeletal: generalized weakness - Neurologic Neurologic: moves all extremities - Psychiatric Psychiatric: other (Alert but not oriented) - Allied health notes Allied health notes reviewed: nursing, case management - Labs CBC & Chem 7: 12/28/18 05:54 12/28/18 05:54
[2018-12-30] MEDS: KCL 10MEQ/100ML 10 MEQ/100 ML BAG IV SCH ×4 (04:27→07:55)
[2018-12-30 04:41] LABS: Basophils # (Auto) 0.1 K/mm3 (0.0-0.1); Basophils % (Auto) 0.6 % (0.0-1.8); Eosinophils # (Auto) 0.3 K/mm3 (0.0-0.4); Eosinophils % (Auto) 2.6 % (0.0-4.3); Hematocrit 29.1 % (30.3-42.9); Hemoglobin 9.6 gm/dl (10.1-14.3); Lymphocytes # (Auto) 2.1 K/mm3 (1.2-5.4); Lymphocytes % (Auto) 21.5 % (13.4-35.0); Mean Corpuscular HGB Conc 33 % (30-34); Mean Corpuscular Volume 89 fl (79-97); Monocytes % (Auto) 10.2 % (0.0-7.3); Platelet Count 313 K/mm3 (140-440); Red Blood Count 3.27 M/mm3 (3.65-5.03); Red Cell Distribution Width 14.7 % (13.2-15.2)
[2018-12-30] MEDS: D5/0.45NS 1,000 ML IV SCH ×2 (05:52→10:52)
[2018-12-30] MEDS: HumuLIN R SUB-Q SCH ×4 (08:30→22:47)
[2018-12-30] MEDS: HumaLOG SUB-Q SCH ×4 (08:30→23:33)
[2018-12-30] MEDS ORDERED: ROCEPHIN/NS 1 GM/50 ML 1 GM/50 ML BAG IV SCH (10:00)
--- NOTE | 2018-12-30 10:13 | Gastroenterology Consultation ---
History of Present Illness - Reason for Consult Consult date: 12/30/18 PEG placement Requesting physician: JEAN PAUL SÁNCHEZ - History of Present Illness Patient is a 78 y/o female with PMH of metabolic encephalopathy, failure to thrive, type 2diabetes, HTN, renal insufficiency, malnutrition, and HLD who presenteed with decrease in functional status with reports of being lethargic with generalized weakness and fever at home per daughter. She was was admitted and currently being treated for sepsis, acute encephalopathy, malnutrition, HTN, and dysphagia to which GI has been consulted for possible PEG placement. She underwent a speech evaluation on 12/26/18 which showed patient to be a risk for aspiration due to bolus holding and failure to initiate a swallow in addition to inability to consume enough to maintain adequate nutritional support with alternative method of nutrition recommended. MBS pending for today. This morning patient was resting in bed w/o acute distress but noted to be lethargic and unable to provide history. No family at bedside. Abdomen benign upon exam. Past History Past Medical History: diabetes, hypertension, hyperlipidemia, renal failure Past Surgical History: hysterectomy, Other (breast reduction, Stimulation Implant Pump [place] [address] Coello for bowel control) Social history: no significant social history Family history: no significant family history Medications and Allergies Allergies Allergy/AdvReac Type Severity Reaction Status Date / Time prednisone Allergy Intermediate Swelling Verified 07/07/13 07:21 codeine Allergy Mild Itching Verified 07/07/13 07:21 Home Medications Medication Instructions Recorded Confirmed Last Taken Type Metoprolol Tartrate 25 mg PO BID 04/26/18 12/25/18 Unknown History amLODIPine [Norvasc] 5 mg PO DAILY 04/26/18 12/25/18 Unknown History Pantoprazole [Protonix TAB] 40 mg PO QDAY #30 tablet 05/01/18 12/25/18 Unknown Rx Active Meds: Active Medications Acetaminophen (Tylenol) 650 mg PO Q4H PRN PRN Reason: Pain MILD(1-3)/Fever >100.5/BLAIR Enoxaparin Sodium (Lovenox) 30 mg SUB-Q QDAY [facility] Last Admin: 12/29/18 09:19 Dose: 30 mg Documented by: Famotidine (Pepcid) 20 mg IV DAILY [facility] Last Admin: 12/29/18 09:19 Dose: 20 mg Documented by: Dextrose/Sodium Chloride (D5/0.45ns) 1,000 mls @ 75 mls/hr IV DIRECT [facility] Last Admin: 12/30/18 05:52 Dose: 75 mls/hr Documented by: Ceftriaxone Sodium (Rocephin/Ns 1 Gm/50 Ml) 1 gm in 50 mls @ 100 mls/hr IV Q24HR [facility]; Protocol Insulin Human Lispro (Humalog) 0 unit SUB-Q [facility]; Protocol Last Admin: 12/29/18 22:10 Dose: Not Given Documented by: Insulin Human Regular (Humulin R) 0 units SUB-Q [facility]; Protocol Last Admin: 12/29/18 22:11 Dose: Not Given Documented by: Morphine Sulfate (Morphine) 2 mg IV Q4H PRN PRN Reason: Pain, Moderate (4-6) Ondansetron HCl (Zofran) 4 mg IV Q8H PRN PRN Reason: Nausea And Vomiting Pantoprazole Sodium (Protonix) 40 mg PO QDAY [facility] Senna (Senokot) 8.6 mg PO Q12HR [facility] Last Admin: 12/29/18 22:04 Dose: Not Given Documented by: Sodium Chloride (Sodium Chloride Flush Syringe 10 Ml) 10 ml IV BID [facility] Last Admin: 12/29/18 22:04 Dose: 10 ml Documented by: Sodium Chloride (Sodium Chloride Flush Syringe 10 Ml) 10 ml IV PRN PRN PRN Reason: LINE FLUSH medications reviewed/updated as required Review of Systems - Review of Systems ROS unobtainable: due to mental status Exam - Constitutional Vital Signs: Temp Pulse Resp BP Pulse Ox 98.4 F 70 20 119/56 100 12/30/18 08:10 12/30/18 08:10 12/30/18 08:10 12/30/18 08:10 12/30/18 08:10 General appearance: other (lethargic) - Respiratory Respiratory: bilateral: diminished - Cardiovascular Rhythm: regular Heart Sounds: Present: S1 & S2 - Gastrointestinal General gastrointestinal: Present: soft, non-distended, normal bowel sounds - Labs CBC & Chem 7: 12/30/18 04:24 12/28/18 05:54 Lab Results: Laboratory Results - last 24 hr 12/29/18 12/29/18 12/29/18 12:29 16:26 21:56 WBC RBC Hgb Hct MCV MCH MCHC RDW Plt Count Lymph % (Auto) [place] % (Auto) Eos % (Auto) Baso % (Auto) Lymph # Gaines # Eos # Baso # Seg Neutrophils % Seg Neutrophils # POC Glucose 71 72 85 Hemoglobin A1c 12/30/18 12/30/18 04:24 04:24 WBC 9.8 RBC 3.27 L Hgb 9.6 L Hct 29.1 L MCV 89 MCH 30 MCHC 33 RDW 14.7 Plt Count 313 Lymph % (Auto) 21.5 Gaines % (Auto) 10.2 H Eos % (Auto) 2.6 Baso % (Auto) 0.6 Lymph # 2.1 Gaines # 1.0 H Eos # 0.3 Baso # 0.1 Seg Neutrophils % 65.1 Seg Neutrophils # 6.4 POC Glucose Hemoglobin A1c 5.7 Assessment and Plan 1.PEG placement 2.dysphagia 3.encephalopathy 4.Failure to thrive 5.Protein calorie malnutrition -failed speech evaluation on 12/28 -MBS pending for today -called and spoke with patient's daughter (Kristi Cole [phone]) via phone. Discussed the option of a PEG placement to include nature of procedure, details of technique, benefits, purpose, and risks (bleeding, perforation, bleeding, and independent risks of anesthesia). She is unsure at this time if she wants to proceed with PEG placement and states she wants to discuss plan of care further with hospitalist prior to making decision. -consider alternative method of nutrition -continue supportive care -will be available for EGD/PEG placement if needed pending family decision/cons ent
[2018-12-30] MEDS: PEPCID IV SCH (10:41)
[2018-12-30] MEDS: LOVENOX SUB-Q SCH (10:41)
[2018-12-30] MEDS: SODIUM CHLORIDE FLUSH SYRINGE 10 ML IV SCH ×2 (10:42→22:47)
[2018-12-30] MEDS: SENOKOT PO SCH ×2 (10:53→22:46)
[2018-12-30] MEDS: PROTONIX PO SCH (10:53)
--- NOTE | 2018-12-30 13:56 | Fluoroscopy Report ---
MODIFIED BARIUM SWALLOW History: dysphagia. Findings: Video radiography was provided by the radiologist for speech therapy to assess the swallowing mechanism. 1 fluoroscopic image was captured. Impression: Successful modified barium swallow.
[2018-12-30] MEDS: PROCTOSOL-HC PR SCH (22:46)
[2018-12-31] MEDS: D5/0.45NS 1,000 ML IV SCH (04:42)
[2018-12-31 05:20] LABS: INR 1.38 (0.87-1.13)
[2018-12-31] MEDS: HumaLOG SUB-Q SCH ×4 (07:30→22:50)
[2018-12-31] MEDS: HumuLIN R SUB-Q SCH ×4 (07:30→22:50)
[2018-12-31] MEDS: PEPCID IV SCH (09:33)
[2018-12-31] MEDS: LOVENOX SUB-Q SCH (09:33)
[2018-12-31] MEDS: SODIUM CHLORIDE FLUSH SYRINGE 10 ML IV SCH ×2 (09:33→22:51)
--- NOTE | 2018-12-31 09:36 | Event Note ---
Date: 12/31/18 Patient's daughter has made the decision to proceed with PEG placement. Will schedule for EGD/PEG today.
[2018-12-31] MEDS: SENOKOT PO SCH ×2 (09:40→22:51)
[2018-12-31] MEDS: PROTONIX PO SCH (09:40)
[2018-12-31] MEDS ORDERED: ROCEPHIN/NS 1 GM/50 ML 1 GM/50 ML BAG IV SCH (10:00)
--- NOTE | 2018-12-31 13:35 | Anesthesia Consultation ---
Anesthesia Consult and Med Hx Date of service: 12/31/18 - Airway Anesthetic Teeth Evaluation: Poor (multiple missing teeth) ROM Head & Neck: Adequate Mental/Hyoid Distance: Adequate Mallampati Class: Class III (enlarged tounge) Intubation Access Assessment: Probably Good - Pre-Operative Health Status ASA Pre-Surgery Classification: ASA4 Proposed Anesthetic Plan: MAC - Pulmonary Hx Smoking: No Hx Asthma: No SOB: Yes (AT TIMES) COPD: Yes Hx Sleep Apnea: Yes (+CPAP, BROUGHT TUBING TODAY) - Cardiovascular System Hx Hypertension: Yes Hx Heart Attack/AMI: No Hx Pacemaker: No Hx Internal Defibrillator: No - Central Nervous System Hx Seizures: No CVA: Yes Hx Psychiatric Problems: Yes - Gastrointestinal Hx Gastroesophageal Reflux Disease: Yes (CONTROLLED W/ MEDS) - Endocrine Hx Renal Disease: No Hx Liver Disease: No Hx Non-Insulin Dependent Diabetes: Yes - Hematic Hx Anemia: No Hx Sickle Cell Disease: No - Other Systems Hx Cancer: No - Additional Comments Anesthesia Medical History Comments: failure to thrive, dysphagea
--- NOTE | 2018-12-31 13:36 | Anesthesia Day of Surgery ---
Anesthesia Day of Surgery - Day of Surgery Patient Examined: Yes Patient H&P Reviewed: Yes Patient is NPO: Yes Beta Blockers: Yes
[2018-12-31] MEDS ORDERED: ANCEF/STERILE WATER 2 GM/20 ML 2 GM/20 ML SYRINGE IV ONE (13:57)
[2018-12-31] MEDS ORDERED: NACL 0.9% 1000 ML 1,000 ML IV SCH (14:00)
[2018-12-31] MEDS ORDERED: ANCEF/STERILE WATER 2 GM/20 ML 2 GM/20 ML SYRINGE IV NR (14:00)
[2018-12-31] MEDS ORDERED: DIPRIVAN 10 MG/ML IV ONE (14:02)
[2018-12-31] MEDS ORDERED: XYLOCAINE 2% INFILTRATI ONE (14:10)
--- NOTE | 2018-12-31 14:30 | Post Operative Note ---
Pre-op diagnosis: dysphagia, weight loss Post-op diagnosis: same Findings: EGD: hiatal hernia - gastritis - 20F pull peg placed, bumper at 3 cm Procedure: EGD/PEG Anesthesia: MAC Surgeon: MARVIN RUSSO Estimated blood loss: none Pathology: list Specimen disposition: to lab Condition: stable Disposition: floor
[2018-12-31] MEDS ORDERED: SODIUM BICARBONATE FEEDTUBE PRN (15:01)
[2018-12-31] MEDS ORDERED: SIMPLE SYRUP FEEDTUBE PRN ×2 (15:01)
[2018-12-31] MEDS ORDERED: PANCREAZE DR 10,500 UNIT FEEDTUBE PRN (15:01)
--- NOTE | 2018-12-31 15:19 | Operative Report ---
PROCEDURE: EGD with PEG tube placement. INDICATION: 1. Dysphagia. 2. Weight loss. MEDICATIONS: Propofol per FRAUD MANAGER. COMPLICATIONS: None. DESCRIPTION OF PROCEDURE: The patient was brought to procedure suite. The patient had procedure discussed with her and family at length. All risks, complications, and benefits were discussed after which consent was gotten for the procedure to be performed. The patient was placed in supine position. Mouth block was placed in the patient's oral cavity. After adequate sedation medication as above, endoscope was introduced in the mouth and brought to the level of the second portion of duodenum. Retroflexion view performed. The patient's vital signs remained stable throughout the procedure. FINDINGS: There was noted to be small to medium hiatal hernia at GE junction 37 cm from the gums. The esophagus otherwise appeared to be normal. Mild gastritis noted in the stomach, the stomach otherwise appeared to be normal. Duodenum appeared to be normal. Retroflexion view performed in the stomach showed no other pathology other than noted above. After this, especially using standard technique, therefore adequate placement of PEG tube was found. A 20-Ukrainian pull PEG was then placed. Bump was noted to be at 3 cm. Post-procedure appearance was satisfactory. The patient tolerated the procedure well. No complications during the procedure. IMPRESSION: 1. Hiatal hernia. 2. Gastritis. 3. Otherwise, normal EGD. 4. PEG tube placed without obvious complications. RECOMMENDATIONS: 1. Basic PEG tube orders, see chart. 2. Watch for signs of bleeding or infection. 3. Okay to use PEG in 6 hours. 4. We will follow up in a.m. JOB# [id number] [facility]
--- NOTE | 2018-12-31 16:34 | Progress Note ---
Assessment and Plan Assessment and plan: 78-year-old woman who presented to the hospital to acute altered mental status. She was brought by her daughter. Habits also associated angina been eating for a few days. Her daughter relates that every decline in function over 3 months, she had decreased appetite G fatigue generalized weakness. CT of the head was negative, CT abdomen and pelvis suggested constipation Diagnoses Hypertension Diabetes Hyperlipidemia Acute kidney injury Failure to thrive Acute metabolic encephalopathy Severe malnutrition Dysphagia Hypokalemia Hospital course the patient received IV hydration, medications optimized for chronic conditions She had severe dysphagia, therefore require a G-tube which was placed by GI Electrolytes were repleted, electrolytes were repleted, acute kidney injury resolved completely with IV fluids History Interval history: Review of systems Constitutional: No fevers, no malaise, no joint pains CVS: No chest pain, no orthopnea, no dyspnea on exertion, no pedal edema GI: No abdominal pain, no diarrhea, no vomiting, no constipation Respiratory: No shortness of breath, no wheezing, no coughing Hospitalist Physical - Physical exam Narrative exam: General.: Appears well, no distress, nontoxic HEENT: Moist mucous membranes, extraocular muscles intact, no lymphadenopathy Neck: supple Cardiac: S1-S2 heard Lungs: clear to auscultation bilaterally Abdomen: soft , nontender, nondistended, bowel sounds positive Extremities: no edema clubbing or cyanosis Skin: no rash or lesions Neurologic: Generalized weakness, no focal deficits, Psych: calm, and cooperative - Constitutional Vitals: Temp Pulse Resp BP Pulse Ox 98.4 F 72 22 145/76 100 12/31/18 14:29 12/31/18 16:23 12/31/18 14:59 12/31/18 14:59 12/31/18 14:59 General appearance: Present: no acute distress, well-nourished Results - Labs CBC & Chem 7: 12/30/18 04:24 12/28/18 05:54 Labs: Laboratory Last Values WBC 9.8 K/mm3 (4.5-11.0) 12/30/18 04:24 RBC 3.27 M/mm3 (3.65-5.03) L 12/30/18 04:24 Hgb 9.6 gm/dl (10.1-14.3) L 12/30/18 04:24 Hct 29.1 % (30.3-42.9) L 12/30/18 04:24 MCV 89 fl (79-97) 12/30/18 04:24 MCH 30 pg (28-32) 12/30/18 04:24 MCHC 33 % (30-34) 12/30/18 04:24 RDW 14.7 % (13.2-15.2) 12/30/18 04:24 Plt Count 313 K/mm3 (140-440) 12/30/18 04:24 Lymph % (Auto) 21.5 % (13.4-35.0) 12/30/18 04:24 [place] % (Auto) 10.2 % (0.0-7.3) H 12/30/18 04:24 Eos % (Auto) 2.6 % (0.0-4.3) 12/30/18 04:24 Baso % (Auto) 0.6 % (0.0-1.8) 12/30/18 04:24 Lymph # 2.1 K/mm3 (1.2-5.4) 12/30/18 04:24 [place] # 1.0 K/mm3 (0.0-0.8) H 12/30/18 04:24 Eos # 0.3 K/mm3 (0.0-0.4) 12/30/18 04:24 Baso # 0.1 K/mm3 (0.0-0.1) 12/30/18 04:24 Add Manual Diff Complete 12/28/18 05:54 Total Counted 100 12/28/18 05:54 Seg Neutrophils % 65.1 % (40.0-70.0) 12/30/18 04:24 Seg Neuts % (Manual) 78.0 % (40.0-70.0) H 12/28/18 05:54 Band Neutrophils % 0 % 12/28/18 05:54 Lymphocytes % (Manual) 12.0 % (13.4-35.0) L 12/28/18 05:54 Reactive Lymphs % (Man) 0 % 12/28/18 05:54 Monocytes % (Manual) 8.0 % (0.0-7.3) H 12/28/18 05:54 Eosinophils % (Manual) 2.0 % (0.0-4.3) 12/28/18 05:54 Basophils % (Manual) 0 % (0.0-1.8) 12/28/18 05:54 Metamyelocytes % 0 % 12/28/18 05:54 Myelocytes % 0 % 12/28/18 05:54 Promyelocytes % 0 % 12/28/18 05:54 Blast Cells % 0 % 12/28/18 05:54 Nucleated RBC % Not Reportable 12/28/18 05:54 Seg Neutrophils # 6.4 K/mm3 (1.8-7.7) 12/30/18 04:24 Seg Neutrophils # Man 9.8 K/mm3 (1.8-7.7) H 12/28/18 05:54 Band Neutrophils # 0.0 K/mm3 12/28/18 05:54 Lymphocytes # (Manual) 1.5 K/mm3 (1.2-5.4) 12/28/18 05:54 Abs React Lymphs (Man) 0.0 K/mm3 12/28/18 05:54 Monocytes # (Manual) 1.0 K/mm3 (0.0-0.8) H 12/28/18 05:54 Eosinophils # (Manual) 0.3 K/mm3 (0.0-0.4) 12/28/18 05:54 Basophils # (Manual) 0.0 K/mm3 (0.0-0.1) 12/28/18 05:54 Metamyelocytes # 0.0 K/mm3 12/28/18 05:54 Myelocytes # 0.0 K/mm3 12/28/18 05:54 Promyelocytes # 0.0 K/mm3 12/28/18 05:54 Blast Cells # 0.0 K/mm3 12/28/18 05:54 WBC Morphology Not Reportable 12/28/18 05:54 Hypersegmented Neuts Not Reportable 12/28/18 05:54 Hyposegmented Neuts Not Reportable 12/28/18 05:54 Hypogranular Neuts Not Reportable 12/28/18 05:54 Smudge Cells Not Reportable 12/28/18 05:54 Toxic Granulation Not Reportable 12/28/18 05:54 Toxic Vacuolation Not Reportable 12/28/18 05:54 Dohle Bodies Not Reportable 12/28/18 05:54 Pelger-Huet Anomaly Not Reportable 12/28/18 05:54 Giuseppe Rods Not Reportable 12/28/18 05:54 Platelet Estimate Consistent w auto 12/28/18 05:54 Clumped Platelets Not Reportable 12/28/18 05:54 Plt Clumps, EDTA Not Reportable 12/28/18 05:54 Large Platelets Not Reportable 12/28/18 05:54 Giant Platelets Not Reportable 12/28/18 05:54 Platelet Satelliting Not Reportable 12/28/18 05:54 Plt Morphology Comment Not Reportable 12/28/18 05:54 RBC Morphology Not Reportable 12/28/18 05:54 Dimorphic RBCs Not Reportable 12/28/18 05:54 Polychromasia Not Reportable 12/28/18 05:54 Hypochromasia Not Reportable 12/28/18 05:54 Poikilocytosis Not Reportable 12/28/18 05:54 Anisocytosis 1+ 12/28/18 05:54 Microcytosis Not Reportable 12/28/18 05:54 Macrocytosis Not Reportable 12/28/18 05:54 Spherocytes Not Reportable 12/28/18 05:54 Pappenheimer Bodies Not Reportable 12/28/18 05:54 Sickle Cells Not Reportable 12/28/18 05:54 Target Cells 1+ 12/28/18 05:54 Tear Drop Cells Not Reportable 12/28/18 05:54 Ovalocytes Not Reportable 12/28/18 05:54 Helmet Cells Not Reportable 12/28/18 05:54 Francisco-Wellman Bodies Not Reportable 12/28/18 05:54 Bowman Rings Not Reportable 12/28/18 05:54 Aga Cells Not Reportable 12/28/18 05:54 Bite Cells Not Reportable 12/28/18 05:54 Crenated Cell Not Reportable 12/28/18 05:54 Elliptocytes Not Reportable 12/28/18 05:54 Acanthocytes (Spur) Not Reportable 12/28/18 05:54 Rouleaux Not Reportable 12/28/18 05:54 Hemoglobin C Crystals Not Reportable 12/28/18 05:54 Schistocytes Not Reportable 12/28/18 05:54 Malaria parasites Not Reportable 12/28/18 05:54 Sampson Bodies Not Reportable 12/28/18 05:54 Hem Pathologist Commnt No 12/28/18 05:54 PT 17.9 Sec. (12.2-14.9) H 12/31/18 04:22 INR 1.38 (0.87-1.13) H 12/31/18 04:22 Sodium 139 mmol/L (137-145) 12/28/18 05:54 Potassium 3.0 mmol/L (3.6-5.0) L 12/28/18 05:54 Chloride 99.0 mmol/L (98-107) 12/28/18 05:54 Carbon Dioxide 29 mmol/L (22-30) 12/28/18 05:54 Anion Gap 14 mmol/L 12/28/18 05:54 BUN 4 mg/dL (7-17) L 12/28/18 05:54 Creatinine 0.4 mg/dL (0.7-1.2) L 12/28/18 05:54 Estimated GFR > 60 ml/min 12/28/18 05:54 BUN/Creatinine Ratio 10 % 12/28/18 05:54 Glucose 135 mg/dL (65-100) H 12/28/18 05:54 POC Glucose 85 (70-105) 12/29/18 21:56 Hemoglobin A1c 5.7 % (4-6) 12/30/18 04:24 Lactic Acid 0.70 mmol/L (0.7-2.0) 12/26/18 05:44 Calcium 8.5 mg/dL (8.4-10.2) 12/28/18 05:54 Total Bilirubin 0.20 mg/dL (0.1-1.2) 12/28/18 05:54 AST 10 units/L (5-40) 12/28/18 05:54 ALT 6 units/L (7-56) L 12/28/18 05:54 Alkaline Phosphatase 60 units/L (35-129) 12/28/18 05:54 Total Protein 5.6 g/dL (6.3-8.2) L D 12/28/18 05:54 Albumin 2.3 g/dL (3.9-5) L 12/28/18 05:54 Albumin/Globulin Ratio 0.7 % 12/28/18 05:54 TSH 3.220 mlU/mL (0.270-4.200) 12/25/18 17:24 Urine Color Caroline (Yellow) 12/25/18 16:44 Urine Turbidity Clear (Clear) 12/25/18 16:44 Urine pH 5.0 (5.0-7.0) 12/25/18 16:44 Ur Specific [place] 1.028 (1.003-1.030) 12/25/18 16:44 Urine Protein <15 mg/dl mg/dL (Negative) 12/25/18 16:44 Urine Glucose (UA) Neg mg/dL (Negative) 12/25/18 16:44 Urine Ketones Neg mg/dL (Negative) 12/25/18 16:44 Urine Blood Neg (Negative) 12/25/18 16:44 Urine Nitrite Neg (Negative) 12/25/18 16:44 Urine Bilirubin Neg (Negative) 12/25/18 16:44 Urine Urobilinogen 4.0 mg/dL (<2.0) 12/25/18 16:44 Ur Leukocyte Esterase Neg (Negative) 12/25/18 16:44 Urine WBC (Auto) 1.0 /HPF (0.0-6.0) 12/25/18 16:44 Urine RBC (Auto) 1.0 /HPF (0.0-6.0) 12/25/18 16:44 U Epithel Cells (Auto) 6.0 /HPF (0-13.0) 12/25/18 16:44 Urine Bacteria (Auto) 1+ /HPF (Negative) 12/25/18 16:44 Urine Mucus 2+ /HPF 12/25/18 16:44 Urine Opiates Screen Presumptive negative 12/25/18 20:04 Urine Methadone Screen Presumptive negative 12/25/18 20:04 Ur Barbiturates Screen Presumptive negative 12/25/18 20:04 Ur Phencyclidine Scrn Presumptive negative 12/25/18 20:04 Ur Amphetamines Screen Presumptive negative 12/25/18 20:04 U Benzodiazepines Scrn Presumptive negative 12/25/18 20:04 Urine Cocaine Screen Presumptive negative 12/25/18 20:04 U Marijuana (THC) Screen Presumptive negative 12/25/18 20:04 Drugs of Abuse Note Disclamer 12/25/18 20:04 Nutrition/Malnutrition Assess - Dietary Evaluation Nutrition/Malnutrition Findings: Nutrition Notes Start: 12/26/18 15:38 Freq: Status: Active Protocol: Document 12/31/18 14:57 NHALL (Rec: 12/31/18 15:01 TRISTEN DEL CASTILLOW- [email or web address]) Nutrition Notes Need for Assessment generated from: MD Order Initial or Follow up Brief Note Subjective/Other Information PEG successfully placed today. RD consulted for TPN ( however, MD likely meant TF). Attempted to contact MD for further clarification, but got no response. Nutrition Intervention Nutrition Support: Glucerna 1.2 at 45ml/hr with 75ml water flush q4h. Kcal 1,296 Protein (gm) 65 Fluid (mL) 869 Fiber (gm) 17 Follow-Up By: 01/01/19 Additional Comments F/U: TF start
[2018-12-31] MEDS: PROCTOSOL-HC PR SCH (22:50)
[2019-01-01] MEDS: D5/0.45NS 1,000 ML IV SCH (00:18)
[2019-01-01] MEDS: HumaLOG SUB-Q SCH ×4 (08:25→22:48)
[2019-01-01] MEDS: HumuLIN R SUB-Q SCH ×4 (08:25→22:48)
--- NOTE | 2019-01-01 09:11 | Discharge Summary ---
Providers - Providers Date of Admission: 12/25/18 21:15 Attending physician: LEANN PINEDA MD 12/26/18 07:08 Physical Therapy Evaluation and Treat [CONS] Routine Comment: Reason For Exam: bed bound Mode of Transport?: Wheelchair Weight bearing status?: Nonwt bearing Assistive devices?: No 12/26/18 08:00 Speech Therapy Evaluation and Treat [CONS] Routine Reason For Exam: ASPIRATION rISK. 12/30/18 03:04 Consult to Physician [CONS] Routine Comment: called office/mckay Consulting Provider: ELHAM SOLARES Physician Instructions: Peg placement after Barium swallow Reason For Exam: Dysphagia 12/30/18 03:26 Consult to Dietitian/Nutrition [CONS] Routine Physician Instructions: Reason For Exam: Reason for Consult: Nutrition Recommendations Reason for Consult: Poor oral intake 12/31/18 14:40 Consult to Dietitian/Nutrition [CONS] Routine Physician Instructions: Reason For Exam: Reason for Consult: Write/Manage TPN/PPN Primary care physician: [employer] Hospitalization Condition: Fair Hospital course: 78-year-old woman who presented to the hospital to acute altered mental status. She was brought by her daughter. Habits also associated angina been eating for a few days. Her daughter relates that every decline in function over 3 months, she had decreased appetite G fatigue generalized weakness. CT of the head was negative, CT abdomen and pelvis suggested constipation Diagnoses Hypertension Diabetes Hyperlipidemia Acute kidney injury; vasomotor nephropathy Failure to thrive Acute metabolic encephalopathy Severe malnutrition Dysphagia Hypokalemia Hospital course the patient received IV hydration, medications optimized for chronic conditions She had severe dysphagia, therefore require a G-tube which was placed by GI Electrolytes were repleted, electrolytes were repleted, acute kidney injury resolved completely with IV fluids Disposition: [id number] HOME UNDER HOME [facility] Time spent for discharge: 33 mins Core Measure Documentation - Palliative Care Palliative Care/ Comfort Measures: Not Applicable - Core Measures Any of the following diagnoses?: none Exam - Constitutional Vitals: Temp Pulse Resp BP Pulse Ox 98.6 F 81 18 131/70 100 01/01/19 07:18 01/01/19 07:18 01/01/19 07:18 01/01/19 07:18 01/01/19 07:18 General appearance: Present: no acute distress, well-nourished - EENT Eyes: Present: PERRL ENT: hearing intact, clear oral mucosa - Neck Neck: Present: supple, normal ROM - Respiratory Respiratory effort: normal Respiratory: bilateral: CTA - Cardiovascular Heart Sounds: Present: S1 & S2. Absent: rub, click - Extremities Extremities: pulses symmetrical, No edema Peripheral Pulses: within normal limits - Abdominal General gastrointestinal: Present: soft, non-tender, non-distended, normal bowel sounds Female genitourinary: Present: normal - Integumentary Integumentary: Present: clear, warm, dry - Musculoskeletal Musculoskeletal: gait normal, strength equal bilaterally - Psychiatric Psychiatric: appropriate mood/affect, intact judgment & insight - Neurologic Neurologic: CNII-XII intact, moves all extremities Plan Follow up with: PRIMARY CARE, [Primary Care Provider] - 3-5 Days
[2019-01-01] MEDS: LOVENOX SUB-Q SCH (09:31)
[2019-01-01] MEDS: PROTONIX PO SCH (09:32)
[2019-01-01] MEDS: PEPCID IV SCH (09:32)
[2019-01-01] MEDS: TRIPLE ANTIBIOTIC TP SCH (09:32)
[2019-01-01] MEDS: SODIUM CHLORIDE FLUSH SYRINGE 10 ML IV SCH ×2 (09:33→22:54)
[2019-01-01] MEDS: SENOKOT PO SCH ×2 (09:38→22:49)
--- NOTE | 2019-01-01 13:25 | Gastroenterology Progress Note ---
Assessment and Plan 1.PEG placement 2.dysphagia 3.encephalopathy 4.Failure to thrive 5.Protein calorie malnutrition -failed speech evaluation on 12/28 -s/p EGD/PEG placement yesterday -PEG site this am w/o s/s of infection or bleeding -bumper off loaded to prevent skin breakdown -tolerating TFs -daily PEG care; split gauze dressing PRN -abdominal binder -continue supportive care -no further recommendations per GI standpoint at this time -will sign off, please call back if needed - Subjective Date of service: 01/01/19 Principal diagnosis: PEG placement Interval history: No acute distress. PEG site without redness, swelling, odor, drainage, or bleeding. Tolerating TFs per nursing. Objective - Constitutional Vitals: Temp Pulse Resp BP Pulse Ox 98.6 F 81 18 131/70 100 01/01/19 07:18 01/01/19 07:18 01/01/19 07:18 01/01/19 07:18 01/01/19 07:18 General appearance: no acute distress - Respiratory Respiratory: bilateral: CTA - Cardiovascular Rhythm: regular Heart Sounds: Present: S1 & S2 - Gastrointestinal General gastrointestinal: Present: soft, non-distended, normal bowel sounds, other (+PEG) - Labs CBC & Chem 7: 12/30/18 04:24 12/28/18 05:54
[2019-01-01] MEDS: PROCTOSOL-HC PR SCH (22:49)
[2019-01-02 07:53] VITALS: BP 120/65
--- NOTE | 2019-01-02 07:53 | Progress Note ---
Assessment and Plan Assessment and plan: 78-year-old woman who presented to the hospital to acute altered mental status. She was brought by her daughter. Habits also associated angina been eating for a few days. Her daughter relates that every decline in function over 3 months, she had decreased appetite G fatigue generalized weakness. CT of the head was negative, CT abdomen and pelvis suggested constipation Diagnoses Hypertension Diabetes Hyperlipidemia Acute kidney injury Failure to thrive Acute metabolic encephalopathy Severe malnutrition Dysphagia Hypokalemia Hospital course the patient received IV hydration, medications optimized for chronic conditions She had severe dysphagia, therefore require a G-tube which was placed by GI Electrolytes were repleted, electrolytes were repleted, acute kidney injury resolved completely with IV fluids History Interval history: Review of systems Constitutional: No fevers, no malaise, no joint pains CVS: No chest pain, no orthopnea, no dyspnea on exertion, no pedal edema GI: No abdominal pain, no diarrhea, no vomiting, no constipation Respiratory: No shortness of breath, no wheezing, no coughing Hospitalist Physical - Physical exam Narrative exam: General.: Appears well, no distress, nontoxic HEENT: Moist mucous membranes, extraocular muscles intact, no lymphadenopathy Neck: supple Cardiac: S1-S2 heard Lungs: clear to auscultation bilaterally Abdomen: soft , nontender, nondistended, bowel sounds positive Extremities: no edema clubbing or cyanosis Skin: no rash or lesions Neurologic: Generalized weakness, no focal deficits, Psych: calm, and cooperative - Constitutional Vitals: Temp Pulse Resp BP Pulse Ox 98.4 F 82 18 120/65 98 01/02/19 07:43 01/02/19 07:43 01/02/19 07:43 01/02/19 07:43 01/02/19 07:43 General appearance: Present: no acute distress, well-nourished Results - Labs CBC & Chem 7: 12/30/18 04:24 12/28/18 05:54 Labs: Laboratory Last Values WBC 9.8 K/mm3 (4.5-11.0) 12/30/18 04:24 RBC 3.27 M/mm3 (3.65-5.03) L 12/30/18 04:24 Hgb 9.6 gm/dl (10.1-14.3) L 12/30/18 04:24 Hct 29.1 % (30.3-42.9) L 12/30/18 04:24 MCV 89 fl (79-97) 12/30/18 04:24 MCH 30 pg (28-32) 12/30/18 04:24 MCHC 33 % (30-34) 12/30/18 04:24 RDW 14.7 % (13.2-15.2) 12/30/18 04:24 Plt Count 313 K/mm3 (140-440) 12/30/18 04:24 Lymph % (Auto) 21.5 % (13.4-35.0) 12/30/18 04:24 Pepin % (Auto) 10.2 % (0.0-7.3) H 12/30/18 04:24 Eos % (Auto) 2.6 % (0.0-4.3) 12/30/18 04:24 Baso % (Auto) 0.6 % (0.0-1.8) 12/30/18 04:24 Lymph # 2.1 K/mm3 (1.2-5.4) 12/30/18 04:24 Pepin # 1.0 K/mm3 (0.0-0.8) H 12/30/18 04:24 Eos # 0.3 K/mm3 (0.0-0.4) 12/30/18 04:24 Baso # 0.1 K/mm3 (0.0-0.1) 12/30/18 04:24 Add Manual Diff Complete 12/28/18 05:54 Total Counted 100 12/28/18 05:54 Seg Neutrophils % 65.1 % (40.0-70.0) 12/30/18 04:24 Seg Neuts % (Manual) 78.0 % (40.0-70.0) H 12/28/18 05:54 Band Neutrophils % 0 % 12/28/18 05:54 Lymphocytes % (Manual) 12.0 % (13.4-35.0) L 12/28/18 05:54 Reactive Lymphs % (Man) 0 % 12/28/18 05:54 Monocytes % (Manual) 8.0 % (0.0-7.3) H 12/28/18 05:54 Eosinophils % (Manual) 2.0 % (0.0-4.3) 12/28/18 05:54 Basophils % (Manual) 0 % (0.0-1.8) 12/28/18 05:54 Metamyelocytes % 0 % 12/28/18 05:54 Myelocytes % 0 % 12/28/18 05:54 Promyelocytes % 0 % 12/28/18 05:54 Blast Cells % 0 % 12/28/18 05:54 Nucleated RBC % Not Reportable 12/28/18 05:54 Seg Neutrophils # 6.4 K/mm3 (1.8-7.7) 12/30/18 04:24 Seg Neutrophils # Man 9.8 K/mm3 (1.8-7.7) H 12/28/18 05:54 Band Neutrophils # 0.0 K/mm3 12/28/18 05:54 Lymphocytes # (Manual) 1.5 K/mm3 (1.2-5.4) 12/28/18 05:54 Abs React Lymphs (Man) 0.0 K/mm3 12/28/18 05:54 Monocytes # (Manual) 1.0 K/mm3 (0.0-0.8) H 12/28/18 05:54 Eosinophils # (Manual) 0.3 K/mm3 (0.0-0.4) 12/28/18 05:54 Basophils # (Manual) 0.0 K/mm3 (0.0-0.1) 12/28/18 05:54 Metamyelocytes # 0.0 K/mm3 12/28/18 05:54 Myelocytes # 0.0 K/mm3 12/28/18 05:54 Promyelocytes # 0.0 K/mm3 12/28/18 05:54 Blast Cells # 0.0 K/mm3 12/28/18 05:54 WBC Morphology Not Reportable 12/28/18 05:54 Hypersegmented Neuts Not Reportable 12/28/18 05:54 Hyposegmented Neuts Not Reportable 12/28/18 05:54 Hypogranular Neuts Not Reportable 12/28/18 05:54 Smudge Cells Not Reportable 12/28/18 05:54 Toxic Granulation Not Reportable 12/28/18 05:54 Toxic Vacuolation Not Reportable 12/28/18 05:54 Dohle Bodies Not Reportable 12/28/18 05:54 Pelger-Huet Anomaly Not Reportable 12/28/18 05:54 Giuseppe Rods Not Reportable 12/28/18 05:54 Platelet Estimate Consistent w auto 12/28/18 05:54 Clumped Platelets Not Reportable 12/28/18 05:54 Plt Clumps, EDTA Not Reportable 12/28/18 05:54 Large Platelets Not Reportable 12/28/18 05:54 Giant Platelets Not Reportable 12/28/18 05:54 Platelet Satelliting Not Reportable 12/28/18 05:54 Plt Morphology Comment Not Reportable 12/28/18 05:54 RBC Morphology Not Reportable 12/28/18 05:54 Dimorphic RBCs Not Reportable 12/28/18 05:54 Polychromasia Not Reportable 12/28/18 05:54 Hypochromasia Not Reportable 12/28/18 05:54 Poikilocytosis Not Reportable 12/28/18 05:54 Anisocytosis 1+ 12/28/18 05:54 Microcytosis Not Reportable 12/28/18 05:54 Macrocytosis Not Reportable 12/28/18 05:54 Spherocytes Not Reportable 12/28/18 05:54 Pappenheimer Bodies Not Reportable 12/28/18 05:54 Sickle Cells Not Reportable 12/28/18 05:54 Target Cells 1+ 12/28/18 05:54 Tear Drop Cells Not Reportable 12/28/18 05:54 Ovalocytes Not Reportable 12/28/18 05:54 Helmet Cells Not Reportable 12/28/18 05:54 [place] Bodies Not Reportable 12/28/18 05:54 [place] Rings Not Reportable 12/28/18 05:54 Aga Cells Not Reportable 12/28/18 05:54 Bite Cells Not Reportable 12/28/18 05:54 Crenated Cell Not Reportable 12/28/18 05:54 Elliptocytes Not Reportable 12/28/18 05:54 Acanthocytes (Spur) Not Reportable 12/28/18 05:54 Rouleaux Not Reportable 12/28/18 05:54 Hemoglobin C Crystals Not Reportable 12/28/18 05:54 Schistocytes Not Reportable 12/28/18 05:54 Malaria parasites Not Reportable 12/28/18 05:54 Sampson Bodies Not Reportable 12/28/18 05:54 Hem Pathologist Commnt No 12/28/18 05:54 PT 17.9 Sec. (12.2-14.9) H 12/31/18 04:22 INR 1.38 (0.87-1.13) H 12/31/18 04:22 Sodium 139 mmol/L (137-145) 12/28/18 05:54 Potassium 3.0 mmol/L (3.6-5.0) L 12/28/18 05:54 Chloride 99.0 mmol/L (98-107) 12/28/18 05:54 Carbon Dioxide 29 mmol/L (22-30) 12/28/18 05:54 Anion Gap 14 mmol/L 12/28/18 05:54 BUN 4 mg/dL (7-17) L 12/28/18 05:54 Creatinine 0.4 mg/dL (0.7-1.2) L 12/28/18 05:54 Estimated GFR > 60 ml/min 12/28/18 05:54 BUN/Creatinine Ratio 10 % 12/28/18 05:54 Glucose 135 mg/dL (65-100) H 12/28/18 05:54 POC Glucose 119 (70-105) H 01/02/19 07:42 Hemoglobin A1c 5.7 % (4-6) 12/30/18 04:24 Lactic Acid 0.70 mmol/L (0.7-2.0) 12/26/18 05:44 Calcium 8.5 mg/dL (8.4-10.2) 12/28/18 05:54 Total Bilirubin 0.20 mg/dL (0.1-1.2) 12/28/18 05:54 AST 10 units/L (5-40) 12/28/18 05:54 ALT 6 units/L (7-56) L 12/28/18 05:54 Alkaline Phosphatase 60 units/L (35-129) 12/28/18 05:54 Total Protein 5.6 g/dL (6.3-8.2) L D 12/28/18 05:54 Albumin 2.3 g/dL (3.9-5) L 12/28/18 05:54 Albumin/Globulin Ratio 0.7 % 12/28/18 05:54 TSH 3.220 mlU/mL (0.270-4.200) 12/25/18 17:24 Urine Color [place] (Yellow) 12/25/18 16:44 Urine Turbidity Clear (Clear) 12/25/18 16:44 Urine pH 5.0 (5.0-7.0) 12/25/18 16:44 Ur Specific [place] 1.028 (1.003-1.030) 12/25/18 16:44 Urine Protein <15 mg/dl mg/dL (Negative) 12/25/18 16:44 Urine Glucose (UA) Neg mg/dL (Negative) 12/25/18 16:44 Urine Ketones Neg mg/dL (Negative) 12/25/18 16:44 Urine Blood Neg (Negative) 12/25/18 16:44 Urine Nitrite Neg (Negative) 12/25/18 16:44 Urine Bilirubin Neg (Negative) 12/25/18 16:44 Urine Urobilinogen 4.0 mg/dL (<2.0) 12/25/18 16:44 Ur Leukocyte Esterase Neg (Negative) 12/25/18 16:44 Urine WBC (Auto) 1.0 /HPF (0.0-6.0) 12/25/18 16:44 Urine RBC (Auto) 1.0 /HPF (0.0-6.0) 12/25/18 16:44 U Epithel Cells (Auto) 6.0 /HPF (0-13.0) 12/25/18 16:44 Urine Bacteria (Auto) 1+ /HPF (Negative) 12/25/18 16:44 Urine Mucus 2+ /HPF 12/25/18 16:44 Urine Opiates Screen Presumptive negative 12/25/18 20:04 Urine Methadone Screen Presumptive negative 12/25/18 20:04 Ur Barbiturates Screen Presumptive negative 12/25/18 20:04 Ur Phencyclidine Scrn Presumptive negative 12/25/18 20:04 Ur Amphetamines Screen Presumptive negative 12/25/18 20:04 U Benzodiazepines Scrn Presumptive negative 12/25/18 20:04 Urine Cocaine Screen Presumptive negative 12/25/18 20:04 U Marijuana (THC) Screen Presumptive negative 12/25/18 20:04 Drugs of Abuse Note Disclamer 12/25/18 20:04 Nutrition/Malnutrition Assess - Dietary Evaluation Nutrition/Malnutrition Findings: Nutrition Notes Start: 12/26/18 15:38 Freq: Status: Active Protocol: Document 01/01/19 12:52 OL (Rec: 01/01/19 13:49 OL [id number]) Nutrition Notes Initial or Follow up Reassessment Current Diagnosis Diabetes,Sepsis,Hyperlipidemia Other Pertinent Diagnosis FTT, Dysphagia, acute encephalopathy Current Diet Glucerna 1.2 at 45mL/hr with 75mL flush q4h Labs/Tests Reviewed Pertinent Medications Reviewed Height 5 ft Weight 49.8 kg [place] Body Weight (kg) 45.45 BMI 21.4 Subjective/Other Information Received call from case management that pt. is discharging home today. Request for bolus feedings at home. Burn Absent Trauma Absent #1 Nutrition Diagnosis Inadequate oral intake Diagnosis Progress(for reassessment Continues documentation) Is patient on ventilator? No Is Patient Ambulatory and/or Out of Bed No REE-([place]-confined to bed) 1080.384 Kcal/Kg value to use for calculation 30 Approximate Energy Requirements Using 1494 kcal/Kg Calculation Used for Recommendations Kcal/kg Additional Notes Pro needs 1.2-1.5g/k-75g/ day Fluid needs 1ml/kcal Nutrition Intervention Nutrition Support: 5 cans Glucerna 1.2 daily. 90mL before and after Kcal 1,425 Protein (gm) 71 Fluid (mL) 960 Fiber (gm) 19 Goal #1 Enteral nutrition to meet nutrient needs Follow-Up By: 01/03/19 Additional Comments f/u: TF tolerance
[2019-01-02] MEDS: HumaLOG SUB-Q SCH (08:00)
[2019-01-02] MEDS: HumuLIN R SUB-Q SCH (08:00)
[2019-01-02] MEDS: PROTONIX PO SCH (10:55)
[2019-01-02] MEDS: LOVENOX SUB-Q SCH (10:55)
[2019-01-02] MEDS: TRIPLE ANTIBIOTIC TP SCH (10:55)
[2019-01-02] MEDS: SENOKOT PO SCH (10:56)
[2019-01-02] MEDS: SODIUM CHLORIDE FLUSH SYRINGE 10 ML IV SCH (10:56)
== END 2019-01-02 12:20 | disposition home health service (06) | DRG 70 ==
LOC: ED 16:08 → 4A 21:15 → 2B-ACE 12-28 23:35
PROVIDERS: ADMIT Internal Medicine; ATTEND Internal Medicine
PROC: 0DH63UZ Insertion of Feeding Device into Stomach, Percutaneous Approach (ICD-10-PCS; principal; 2018-12-31)
DX: G93.41 Metabolic encephalopathy (principal); E43 Unspecified severe protein-calorie malnutrition; E11.9 Type 2 diabetes mellitus without complications; I10 Essential (primary) hypertension; K21.9 Gastro-esophageal reflux disease without esophagitis; J44.9 Chronic obstructive pulmonary disease, unspecified; F03.90 Unspecified dementia, unspecified severity, without behavioral disturbance, psychotic disturbance, mood disturbance, and anxiety; E86.0 Dehydration; R62.7 Adult failure to thrive; E78.5 Hyperlipidemia, unspecified; R13.10 Dysphagia, unspecified; K21.0 Gastro-esophageal reflux disease with esophagitis; N28.9 Disorder of kidney and ureter, unspecified; K44.9 Diaphragmatic hernia without obstruction or gangrene; K29.70 Gastritis, unspecified, without bleeding; Z90.710 Acquired absence of both cervix and uterus; Z68.21 Body mass index [BMI] 21.0-21.9, adult; Z86.73 Personal history of transient ischemic attack (TIA), and cerebral infarction without residual deficits
CPT/HCPCS: 36415; 70450; 71045; 74176; 74230; 80048; 80053; 80307; 81001; 82140; 82962; 83036; 84443; 85007; 85025; 85027; 85610; 87040; 87086; 93005; 93010; 94760; 99285; G0378; A6250; J0690; J0696; J1650; J1815; J2704; J3480; J7030; J7040

== ENCOUNTER 2019-03-03 10:44 | Inpatient (IN) | payer MEDICARE ==
[2019-03-03] MEDS ORDERED: NACL 0.9% 500 ML 500 ML IV ONE (10:55)
[2019-03-03 11:37] LABS: Basophils # (Auto) 0.1 K/mm3 (0.0-0.1); Basophils % (Auto) 0.7 % (0.0-1.8); Eosinophils # (Auto) 0.1 K/mm3 (0.0-0.4); Hematocrit 30.4 % (30.3-42.9); Lymphocytes # (Auto) 1.7 K/mm3 (1.2-5.4); Lymphocytes % (Auto) 12.1 % (13.4-35.0); Mean Corpuscular HGB Conc 33 % (30-34); Mean Corpuscular Volume 88 fl (79-97); Monocytes % (Auto) 6.7 % (0.0-7.3); Platelet Count 491 K/mm3 (140-440); Red Blood Count 3.46 M/mm3 (3.65-5.03); Red Cell Distribution Width 14.9 % (13.2-15.2)
[2019-03-03] MEDS ORDERED: NACL 0.9% 1000 ML 1,000 ML IV ONE (11:41)
--- NOTE | 2019-03-03 11:46 | Emergency Department Report ---
ED General Adult HPI - General Chief complaint: Nausea/Vomiting/Diarrhea Stated complaint: WEAKNESS Time Seen by Provider: 03/03/19 11:40 Source: family Mode of arrival: Wheelchair Limitations: No Limitations - History of Present Illness Initial comments: Patient is 79 years old female with history of dementia, bedridden, contracture, CVA, peg tube and recent decubitus ulcer. Patient presented to the ER by her daughter stating that her mother has a fever and she feel that she became more weak in the last few days and complaining of generalized pain. Patient has history of arthritis. Patient is not communicating well so most of the history is from the daughter. Daughter denied any recent aspiration. She stated that she noticed that she has also on her right buttock and she has been followed by home health for that. - Related Data Previous Rx's Medication Instructions Recorded Last Taken Type Pantoprazole [Protonix TAB] 40 mg PO QDAY #30 tablet 05/01/18 Unknown Rx Sennosides Tab [Senokot] 8.6 mg PO Q12HR #60 tablet 01/01/19 Unknown Rx oxyCODONE /ACETAMINOPHEN [Percocet 1 tab PO Q6HR PRN #20 tablet 01/01/19 Unknown Rx 5/325] Allergies Allergy/AdvReac Type Severity Reaction Status Date / Time prednisone Allergy Intermediate Swelling Verified 07/07/13 07:21 codeine Allergy Mild Itching Verified 07/07/13 07:21 ED Review of Systems ROS: Stated complaint: WEAKNESS Other details as noted in HPI Comment: Unobtainable due to pts medical conditions ED Past Medical Hx - Past Medical History Previous Medical History?: Yes Hx Hypertension: Yes Hx CVA: Yes (1998) Hx Heart Attack/AMI: No Hx Congestive Heart Failure: No Hx Diabetes: Yes (Pt has had diabetes for more than 20 years.) Hx Deep Vein Thrombosis: No Hx Pulmonary Embolism: No Hx GERD: Yes Hx Liver Disease: No Hx Renal Disease: No Hx Sickle Cell Disease: No Hx Arthritis: No Hx Headaches / Migraines: No Hx Seizures: No Hx Kidney Stones: No Hx Psychiatric Treatment: No Hx Asthma: No Hx COPD: Yes Hx Tuberculosis: No Hx Dementia: Yes Hx HIV: No Additional medical history: Bronchitis - Surgical History Past Surgical History?: Yes Hx Coronary Stent: No Hx Open Heart Surgery: No Hx Pacemaker: No Hx Internal Defibrillator: No Hx Cholecystectomy: No Hx Appendectomy: No Hx Breast Surgery: Yes (BREAST REDUCTION IN 1994) Additional Surgical History: HYSTERECTOMY. Stimulation Implant [place] [address] Coello for bowel control - Social History Smoking Status: Never Smoker - Medications Home Medications: Home Medications Medication Instructions Recorded Confirmed Last Taken Type Pantoprazole [Protonix TAB] 40 mg PO QDAY #30 tablet 05/01/18 12/25/18 Unknown Rx Sennosides Tab [Senokot] 8.6 mg PO Q12HR #60 tablet 01/01/19 Unknown Rx oxyCODONE /ACETAMINOPHEN [Percocet 1 tab PO Q6HR PRN #20 tablet 01/01/19 Unknown Rx 5/325] ED Physical Exam - General Limitations: No Limitations General appearance: alert, in no apparent distress - Head Head exam: Present: atraumatic, normocephalic, normal inspection - Eye Eye exam: Present: normal appearance, PERRL - ENT ENT exam: Present: mucous membranes dry - Neck Neck exam: Present: normal inspection. Absent: tenderness, meningismus - Respiratory Respiratory exam: Present: normal lung sounds bilaterally - Cardiovascular Cardiovascular Exam: Present: tachycardia - GI/Abdominal GI/Abdominal exam: Present: soft, normal bowel sounds, other (G-tube in place, no clinical evidence of cellulitis.). Absent: distended, tenderness, guarding, rebound, rigid, mass, bruit, pulsatile mass - Neurological Exam Neurological exam: Present: alert - Skin Skin exam: Present: other (document this ulcer to the right buttock.) ED Course Vital Signs 03/03/19 03/03/19 10:53 11:30 Temperature 100.0 F H 100.6 F H Pulse Rate 138 H 133 H Respiratory 20 22 Rate Blood Pressure 143/84 Blood Pressure 123/90 143/84 [Right] O2 Sat by Pulse 94 94 Oximetry ED Medical Decision Making - Lab Data Result diagrams: 03/03/19 10:59 03/03/19 10:59 - Radiology Data Radiology results: report reviewed Chest x-ray is unremarkable. - Medical Decision Making Patient is 79 years old female with history of dementia, bedridden, contracture, CVA, peg tube and recent decubitus ulcer. Patient presented to the ER by her daughter stating that her mother has a fever and she feel that she became more weak in the last few days and complaining of generalized pain. Patient has history of arthritis. Patient is not communicating well so most of the history is from the daughter. Daughter denied any recent aspiration. She stated that she noticed that she has also on her right buttock and she has been followed by home health for that. Critical Care Time: Yes Critical care time in (mins) excluding proc time.: 30 Critical care attestation.: If time is entered above; I have spent that time in minutes in the direct care of this critically ill patient, excluding procedure time. ED Disposition Clinical Impression: Sepsis, Fever, Decubitus ulcer Disposition: DC-09 OP ADMIT IP TO THIS HOSP Is pt being admited?: Yes Condition: Stable Referrals: JIMENA MCGRATH MD [Primary Care Provider] - 3-5 Days
[2019-03-03 11:47] LABS: INR 1.11 (0.87-1.13)
[2019-03-03 11:56] LABS: Alanine Aminotransferase 10 units/L (7-56); Albumin 2.8 g/dL (3.9-5); BUN/Creatinine Ratio 24; Blood Urea Nitrogen 12 mg/dL (7-17); Calcium 9.6 mg/dL (8.4-10.2); Hemolysis Index 4
[2019-03-03] MEDS ORDERED: ZOSYN/NS 3.375GM/50ML 3.375 GM/50 ML BAG IV ONE (12:00)
--- NOTE | 2019-03-03 12:18 | XRay Report ---
AP CHEST: HISTORY: Possible sepsis AP view of the chest demonstrates a normal mediastinal and cardiac contour with clear lungs and normal bony and soft tissue structures. No significant change since 12/25/18. IMPRESSION: Unremarkable AP chest.
[2019-03-03] MEDS: TYLENOL FEEDTUBE PRN (12:40)
[2019-03-03 12:43] LABS: Bacteria,Urine 1+ /HPF (Negative); Bilirubin,Urine NEG (Negative); Blood,Urine NEG (Negative); Color,Urine Yellow (Yellow); Hyaline Casts,Urine 1 /LPF; Protein,Urine <15 mg/dL mg/dL (Negative); Urobilinogen,Urine < 2.0 mg/dL (<2.0)
--- NOTE | 2019-03-04 00:21 | History and Physical Report ---
History of Present Illness Date of examination: 03/03/19 Date of admission: 03/03/19 13:04 Chief complaint: Fever and altered sensorium for 2 days History of present illness: 79-year-old female with history of dementia, CVA contractures, decubitus ulcers and PEG tube status brought in by daughter for fever, artery sensorium and complaining of generalized pain. Patient is alert but not come communicating. Low-grade fever present. Some shortness of breath present. No exacerbating or relieving factors Past Medical History Previous Medical History?: Yes Hypertension: Yes CVA: Yes (1998) Diabetes: Yes (Pt has had diabetes for more than 20 years.) COPD: Yes Dementia: Yes Additional medical history: Bronchitis Surgical History Past Surgical History?: Yes Hx Breast Surgery: Yes (BREAST REDUCTION IN 1994) Additional Surgical History: HYSTERECTOMY. Stimulation Im[place] [address] Coello for bowel control Social History Smoking Status: Never Smoker family history family history Family history Htn - Medications Home Medications: Home Medications Medication Instructions Recorded Confirmed Last Taken Type Pantoprazole [Protonix TAB] 40 mg PO QDAY #30 tablet 05/01/18 12/25/18 Unknown Rx Sennosides Tab [Senokot] 8.6 mg PO Q12HR #60 tablet 01/01/19 Unknown Rx oxyCODONE /ACETAMINOPHEN [Percocet 1 tab PO Q6HR PRN #20 tablet 01/01/19 Unkn own Rx 5/325] Review of Systems ROS: Stated complaint: WEAKNESS Other details as noted in HPI Comment: Unobtainable due to pts medical conditions Medications and Allergies Allergies Allergy/AdvReac Type Severity Reaction Status Date / Time prednisone Allergy Intermediate Swelling Verified 07/07/13 07:21 codeine Allergy Mild Itching Verified 07/07/13 07:21 Home Medications Medication Instructions Recorded Confirmed Last Taken Type Pantoprazole [Protonix TAB] 40 mg PO QDAY #30 tablet 05/01/18 03/03/19 Unknown Rx Sennosides Tab [Senokot] 8.6 mg PO Q12HR #60 tablet 01/01/19 03/03/19 Unknown Rx oxyCODONE /ACETAMINOPHEN [Percocet 1 tab PO Q6HR PRN #20 tablet 01/01/19 03/03/19 Unknown Rx 5/325] Active Meds: Active Medications Acetaminophen (Tylenol) 650 mg FEEDTUBE Q6H PRN PRN Reason: Pain, Mild (1-3) Last Admin: 03/03/19 12:40 Dose: 650 mg Documented by: Exam - Constitutional Vitals: Temp Pulse Resp BP Pulse Ox 100.9 F H 122 H 22 104/41 96 03/03/19 23:21 03/03/19 23:21 03/03/19 23:21 03/03/19 23:21 03/03/19 23:21 General appearance: Present: no acute distress, well-nourished - EENT Eyes: Present: PERRL ENT: hearing intact, clear oral mucosa - Neck Neck: Present: supple, normal ROM - Respiratory Respiratory effort: normal Respiratory: bilateral: CTA - Cardiovascular Heart rate: 88 Rhythm: regular Heart Sounds: Present: S1 & S2. Absent: rub, click - Extremities Extremities: no ischemia, pulses intact, pulses symmetrical, No edema Extremity abnormal: edema, other (sacral decubitus ulcer ) Peripheral Pulses: within normal limits - Abdominal General gastrointestinal: Present: soft, non-tender, non-distended, normal bowel sounds Female genitourinary: Present: normal - Integumentary Integumentary: Present: clear, warm, dry - Musculoskeletal Musculoskeletal: gait normal, strength equal bilaterally - Psychiatric Psychiatric: appropriate mood/affect, intact judgment & insight - Neurologic Neurologic: CNII-XII intact, moves all extremities Results - Labs CBC & Chem 7: 03/03/19 10:59 03/03/19 10:59 Labs: Laboratory Last Values WBC 14.2 K/mm3 (4.5-11.0) H 03/03/19 10:59 RBC 3.46 M/mm3 (3.65-5.03) L 03/03/19 10:59 Hgb 10.0 gm/dl (10.1-14.3) L 03/03/19 10:59 Hct 30.4 % (30.3-42.9) 03/03/19 10:59 MCV 88 fl (79-97) 03/03/19 10:59 MCH 29 pg (28-32) 03/03/19 10:59 MCHC 33 % (30-34) 03/03/19 10:59 RDW 14.9 % (13.2-15.2) 03/03/19 10:59 Plt Count 491 K/mm3 (140-440) H 03/03/19 10:59 Lymph % (Auto) 12.1 % (13.4-35.0) L 03/03/19 10:59 [place] % (Auto) 6.7 % (0.0-7.3) 03/03/19 10:59 Eos % (Auto) 1.0 % (0.0-4.3) 03/03/19 10:59 Baso % (Auto) 0.7 % (0.0-1.8) 03/03/19 10:59 Lymph # 1.7 K/mm3 (1.2-5.4) 03/03/19 10:59 [place] # 1.0 K/mm3 (0.0-0.8) H 03/03/19 10:59 Eos # 0.1 K/mm3 (0.0-0.4) 03/03/19 10:59 Baso # 0.1 K/mm3 (0.0-0.1) 03/03/19 10:59 Seg Neutrophils % 79.5 % (40.0-70.0) H 03/03/19 10:59 Seg Neutrophils # 11.3 K/mm3 (1.8-7.7) H 03/03/19 10:59 PT 15.0 Sec. (12.2-14.9) H 03/03/19 10:59 INR 1.11 (0.87-1.13) 03/03/19 10:59 VBG pH 7.409 (7.320-7.420) 03/03/19 10:59 Sodium 136 mmol/L (137-145) L 03/03/19 10:59 Potassium 4.4 mmol/L (3.6-5.0) 03/03/19 10:59 Chloride 93.8 mmol/L (98-107) L 03/03/19 10:59 Carbon Dioxide 31 mmol/L (22-30) H 03/03/19 10:59 16 mmol/L 03/03/19 10:59 BUN 12 mg/dL (7-17) 03/03/19 10:59 0.5 mg/dL (0.7-1.2) L 03/03/19 10:59 Estimated GFR > 60 ml/min 03/03/19 10:59 24 % 03/03/19 10:59 Glucose 161 mg/dL (65-100) H 03/03/19 10:59 POC Glucose 141 (70-105) H 03/03/19 16:29 Lactic Acid 1.00 mmol/L (0.7-2.0) 03/03/19 21:31 Calcium 9.6 mg/dL (8.4-10.2) 03/03/19 10:59 0.30 mg/dL (0.1-1.2) 03/03/19 10:59 AST 14 units/L (5-40) 03/03/19 10:59 ALT 10 units/L (7-56) 03/03/19 10:59 65 units/L (35-129) 03/03/19 10:59 7.5 g/dL (6.3-8.2) 03/03/19 10:59 2.8 g/dL (3.9-5) L 03/03/19 10:59 0.6 % 03/03/19 10:59 Yellow (Yellow) 03/03/19 11:30 Slightly-cloudy (Clear) 03/03/19 11:30 5.0 (5.0-7.0) 03/03/19 11:30 Ur Specific [place] 1.018 (1.003-1.030) 03/03/19 11:30 <15 mg/dl mg/dL (Negative) 03/03/19 11:30 Neg mg/dL (Negative) 03/03/19 11:30 Neg mg/dL (Negative) 03/03/19 11:30 Neg (Negative) 03/03/19 11:30 Neg (Negative) 03/03/19 11:30 Neg (Negative) 03/03/19 11:30 < 2.0 mg/dL (<2.0) 03/03/19 11:30 Ur Leukocyte Esterase Neg (Negative) 03/03/19 11:30 2.0 /HPF (0.0-6.0) 03/03/19 11:30 3.0 /HPF (0.0-6.0) 03/03/19 11:30 U Epithel Cells (Auto) 8.0 /HPF (0-13.0) 03/03/19 11:30 1+ /HPF (Negative) 03/03/19 11:30 Hyaline Casts 1 /LPF 03/03/19 11:30 Short CBC 03/03/19 Range/Units 10:59 WBC 14.2 H (4.5-11.0) K/mm3 Hgb 10.0 L (10.1-14.3) gm/dl Hct 30.4 (30.3-42.9) % Plt Count 491 H (140-440) K/mm3 BMP 03/03/19 10:59 Sodium 136 L Potassium 4.4 Chloride 93.8 L Carbon Dioxide 31 H BUN 12 Creatinine 0.5 L Glucose 161 H Calcium 9.6 Liver Function 03/03/19 Range/Units 10:59 Total Bilirubin 0.30 (0.1-1.2) mg/dL AST 14 (5-40) units/L ALT 10 (7-56) units/L Alkaline Phosphatase 65 (35-129) units/L Albumin 2.8 L (3.9-5) g/dL Urine 03/03/19 Range/Units 11:30 Urine Color Yellow (Yellow) Urine pH 5.0 (5.0-7.0) Ur Specific [place] 1.018 (1.003-1.030) Urine Protein <15 mg/dl (Negative) mg/dL Urine Glucose (UA) Neg (Negative) mg/dL - Imaging and Cardiology Chest x-ray: report reviewed (NAF) Imaging and Cardiology: Chest x-ray IMPRESSION: Unremarkable AP chest. Assessment and Plan Advance Directives: Yes (Full code) VTE prophylaxis?: Chemical Plan of care discussed with patient/family: Yes - Patient Problems (1) Sepsis Current Visit: Yes Status: Acute Qualifiers: Sepsis type: sepsis due to unspecified organism Qualified Code(s): A41.9 - Sepsis, unspecified organism Plan to address problem: IV Cefepime and IV Vancomycin started Sepsis probably sec to sacral decub ulcer (2) HTN (hypertension) Current Visit: Yes Status: Chronic Qualifiers: Hypertension type: essential hypertension Qualified Code(s): I10 - Essential (primary) hypertension Plan to address problem: Continue antihypertensive (3) CVA (cerebral vascular accident) Current Visit: Yes Status: Chronic Qualifiers: CVA mechanism: unspecified Qualified Code(s): I63.9 - Cerebral infarction, unspecified Plan to address problem: Supportive care (4) COPD (chronic obstructive pulmonary disease) Current Visit: Yes Status: Chronic Qualifiers: Emphysema type: unspecified Plan to address problem: DU nebs when necessary (5) Dementia Current Visit: Yes Status: Chronic Qualifiers: Dementia type: vascular dementia Plan to address problem: Supportive care (6) Diabetes Current Visit: Yes Status: Chronic Qualifiers: Diabetes mellitus fci insulin use: unspecified fci insulin use status Plan to address problem: Coverage for now Check hemoglobin A1c (7) DVT prophylaxis Current Visit: Yes Status: Acute Plan to address problem: Lovenox and GI prophylaxis
[2019-03-04] MEDS ORDERED: IBUPROFEN PO PRN (00:44)
[2019-03-04] MEDS ORDERED: TYLENOL PO PRN (00:44)
[2019-03-04] MEDS ORDERED: ZOFRAN IV PRN (00:44)
[2019-03-04] MEDS ORDERED: SODIUM CHLORIDE FLUSH SYRINGE 10 ML IV PRN (00:44)
[2019-03-04] MEDS ORDERED: SIMPLE SYRUP FEEDTUBE PRN ×6 (00:49→09:27)
[2019-03-04] MEDS ORDERED: SODIUM BICARBONATE FEEDTUBE PRN ×3 (00:49→09:27)
[2019-03-04] MEDS ORDERED: PANCREAZE DR 10,500 UNIT FEEDTUBE PRN ×3 (00:49→09:27)
[2019-03-04] MEDS ORDERED: VANCOMYCIN PHARMACY TO DOSE IV SCH (01:00)
[2019-03-04] MEDS ORDERED: VANCOMYCIN 1,250 MG in NACL 0.9% 250ML 250 ML IV ONE (02:00)
[2019-03-04] MEDS: NACL 0.9% 1000 ML 1,000 ML IV SCH ×2 (02:05→13:45)
[2019-03-04] MEDS: MAXIPIME/NS 2 GM/100 ML 2 GM/100 ML BAG IV SCH ×2 (02:05→13:44)
[2019-03-04] MEDS: HumaLOG SUB-Q SCH ×4 (02:11→17:40)
[2019-03-04] MEDS: TYLENOL FEEDTUBE PRN (02:11)
[2019-03-04] MEDS: MORPHINE IV PRN (08:19)
--- NOTE | 2019-03-04 08:50 | Consultation ---
History of Present Illness Consult date: 03/04/19 Reason for consult: wound care Requesting physician: RACHAEL HYLTON Chief complaint: weakness and pain - History of present illness History of present illness: 79yo F currently living in a personal alf was brought in by her daughter due to weakness and arthritic pain. She was also concerned that her sacral ulcer is getting worse. Denies any fevers or chills. Patient is unable to participate in the interview. All the information is obtained from the daughter. They have been regularly turning her and caring for her wounds at home. Things got worse in the personal alf. Past History Past Medical History: COPD, diabetes, hypertension, stroke, other (dementia) Past Surgical History: hysterectomy, Other (breast reduction. Implant for bowel motility) Social history: other (lives in [facility]). denies: smoking, alcohol abuse Family history: no significant family history Medications and Allergies Allergies Allergy/AdvReac Type Severity Reaction Status Date / Time prednisone Allergy Intermediate Swelling Verified 07/07/13 07:21 codeine Allergy Mild Itching Verified 07/07/13 07:21 Home Medications Medication Instructions Recorded Confirmed Last Taken Type Pantoprazole [Protonix TAB] 40 mg PO QDAY #30 tablet 05/01/18 03/03/19 Unknown Rx Sennosides Tab [Senokot] 8.6 mg PO Q12HR #60 tablet 01/01/19 03/03/19 Unknown Rx oxyCODONE /ACETAMINOPHEN [Percocet 1 tab PO Q6HR PRN #20 tablet 01/01/19 03/03/19 Unknown Rx 5/325] Active Meds: Active Medications Acetaminophen (Tylenol) 650 mg FEEDTUBE Q6H PRN PRN Reason: Pain, Mild (1-3) Last Admin: 03/04/19 02:11 Dose: 650 mg Documented by: Acetaminophen (Tylenol) 650 mg PO Q4H PRN PRN Reason: Pain MILD(1-3)/Fever >100.5/BLAIR Lipase/Protease/Amylase (Pancreazluke Dr 10,500 Unit) 1 each FEEDTUBE PRN PRN PRN Reason: For Clogged Feeding Tube Sodium Chloride (Nacl 0.9% 1000 Ml) 1,000 mls @ 100 mls/hr IV DIRECT GUSTAVO Stop: 03/05/19 23:59 Last Admin: 03/04/19 02:05 Dose: 100 mls/hr Documented by: Cefepime HCl (Maxipime/Ns 2 Gm/100 Ml) 2 gm in 100 mls @ 200 mls/hr IV Q12H [facility]; Protocol Last Admin: 03/04/19 02:05 Dose: 200 mls/hr Documented by: Vancomycin HCl (Vancomycin/Ns 1 Gm/250 Ml) 1 gm in 250 mls @ 166.667 mls/hr IV Q24H [facility] Ibuprofen (Motrin) 600 mg PO Q6H PRN PRN Reason: Pain, Mild (1-3) Insulin Human Lispro (Humalog) 0 unit SUB-Q Q6HR [facility]; Protocol Last Admin: 03/04/19 06:26 Dose: 2 unit Documented by: Morphine Sulfate (Morphine) 2 mg IV Q4H PRN PRN Reason: Pain, Moderate (4-6) Last Admin: 03/04/19 08:19 Dose: 2 mg Documented by: Ondansetron HCl (Zofran) 4 mg IV Q8H PRN PRN Reason: Nausea And Vomiting Pantoprazole Sodium (Protonix) 40 mg PO QDAY [facility] Senna (Senokot) 8.6 mg PO Q12HR [facility] Simple Syrup (Simple Syrup) 15 ml FEEDTUBE PRN PRN PRN Reason: Hypoglycemia Simple Syrup (Simple Syrup) 30 ml FEEDTUBE PRN PRN PRN Reason: Hypoglycemia Sodium Bicarbonate (Sodium Bicarbonate) 325 mg FEEDTUBE PRN PRN PRN Reason: For Clogged Feeding Tube Sodium Chloride (Sodium Chloride Flush Syringe 10 Ml) 10 ml IV BID [facility] Sodium Chloride (Sodium Chloride Flush Syringe 10 Ml) 10 ml IV PRN PRN PRN Reason: LINE FLUSH Review of Systems ROS unobtainable: due to mental status Exam Vital Signs Temp Pulse Resp BP Pulse Ox 100.0 F H 138 H 20 123/90 94 03/03/19 10:53 03/03/19 10:53 03/03/19 10:53 03/03/19 10:53 03/03/19 10:53 - General physical appearance Positive: no distress, no pain, other (thin elderly woman) - Respiratory Positive: normal expansion, normal respiratory effort - Integumentary other (superficial skin erosion on left hip. No signs of infection. Sacral decubitus ulcer that penetrates to the subcutaneous tissue in 2 areas. No signs of infection. minimal fibrinous tissue. No purulent fluid. No fluctuance. ) Results - Labs 03/03/19 10:59 03/03/19 10:59 Abnormal lab results 03/03/19 03/03/19 03/03/19 Range/Units 10:59 10:59 10:59 WBC 14.2 H (4.5-11.0) K/mm3 RBC 3.46 L (3.65-5.03) M/mm3 Hgb 10.0 L (10.1-14.3) gm/dl Plt Count 491 H (140-440) K/mm3 Lymph % (Auto) 12.1 L (13.4-35.0) % [place] # 1.0 H (0.0-0.8) K/mm3 Seg Neutrophils % 79.5 H (40.0-70.0) % Seg Neutrophils # 11.3 H (1.8-7.7) K/mm3 PT 15.0 H (12.2-14.9) Sec. Sodium 136 L (137-145) mmol/L Chloride 93.8 L (98-107) mmol/L Carbon Dioxide 31 H (22-30) mmol/L Creatinine 0.5 L (0.7-1.2) mg/dL Glucose 161 H (65-100) mg/dL POC Glucose (70-105) Hemoglobin A1c (4-6) % Lactic Acid (0.7-2.0) mmol/L Albumin 2.8 L (3.9-5) g/dL 03/03/19 03/03/19 03/03/19 Range/Units 16:06 16:29 20:26 WBC (4.5-11.0) K/mm3 RBC (3.65-5.03) M/mm3 Hgb (10.1-14.3) gm/dl Plt Count (140-440) K/mm3 Lymph % (Auto) (13.4-35.0) % [place] # (0.0-0.8) K/mm3 Seg Neutrophils % (40.0-70.0) % Seg Neutrophils # (1.8-7.7) K/mm3 PT (12.2-14.9) Sec. Sodium (137-145) mmol/L Chloride (98-107) mmol/L Carbon Dioxide (22-30) mmol/L Creatinine (0.7-1.2) mg/dL Glucose (65-100) mg/dL POC Glucose 141 H (70-105) Hemoglobin A1c (4-6) % Lactic Acid 2.90 H* 2.90 H* (0.7-2.0) mmol/L Albumin (3.9-5) g/dL 03/04/19 03/04/19 03/04/19 Range/Units 01:02 02:12 06:17 WBC (4.5-11.0) K/mm3 RBC (3.65-5.03) M/mm3 Hgb (10.1-14.3) gm/dl Plt Count (140-440) K/mm3 Lymph % (Auto) (13.4-35.0) % [place] # (0.0-0.8) K/mm3 Seg Neutrophils % (40.0-70.0) % Seg Neutrophils # (1.8-7.7) K/mm3 PT (12.2-14.9) Sec. Sodium (137-145) mmol/L Chloride (98-107) mmol/L Carbon Dioxide (22-30) mmol/L Creatinine (0.7-1.2) mg/dL Glucose (65-100) mg/dL POC Glucose 182 H 192 H (70-105) Hemoglobin A1c 6.6 H (4-6) % Lactic Acid (0.7-2.0) mmol/L Albumin (3.9-5) g/dL Diabetes panel 03/03/19 03/04/19 Range/Units 10:59 01:02 Sodium 136 L (137-145) mmol/L Potassium 4.4 (3.6-5.0) mmol/L Chloride 93.8 L (98-107) mmol/L Carbon Dioxide 31 H (22-30) mmol/L BUN 12 (7-17) mg/dL Creatinine 0.5 L (0.7-1.2) mg/dL Glucose 161 H (65-100) mg/dL Hemoglobin A1c 6.6 H (4-6) % Calcium 9.6 (8.4-10.2) mg/dL AST 14 (5-40) units/L ALT 10 (7-56) units/L Alkaline Phosphatase 65 (35-129) units/L Total Protein 7.5 (6.3-8.2) g/dL Albumin 2.8 L (3.9-5) g/dL Calcium panel 03/03/19 Range/Units 10:59 Calcium 9.6 (8.4-10.2) mg/dL Albumin 2.8 L (3.9-5) g/dL Pituitary panel 03/03/19 Range/Units 10:59 Sodium 136 L (137-145) mmol/L Potassium 4.4 (3.6-5.0) mmol/L Chloride 93.8 L (98-107) mmol/L Carbon Dioxide 31 H (22-30) mmol/L BUN 12 (7-17) mg/dL Creatinine 0.5 L (0.7-1.2) mg/dL Glucose 161 H (65-100) mg/dL Calcium 9.6 (8.4-10.2) mg/dL Adrenal panel 03/03/19 Range/Units 10:59 Sodium 136 L (137-145) mmol/L Potassium 4.4 (3.6-5.0) mmol/L Chloride 93.8 L (98-107) mmol/L Carbon Dioxide 31 H (22-30) mmol/L BUN 12 (7-17) mg/dL Creatinine 0.5 L (0.7-1.2) mg/dL Glucose 161 H (65-100) mg/dL Calcium 9.6 (8.4-10.2) mg/dL Total Bilirubin 0.30 (0.1-1.2) mg/dL AST 14 (5-40) units/L ALT 10 (7-56) units/L Alkaline Phosphatase 65 (35-129) units/L Total Protein 7.5 (6.3-8.2) g/dL Albumin 2.8 L (3.9-5) g/dL Assessment and Plan - Patient Problems (1) Decubitus ulcer Current Visit: Yes Status: Acute Qualifiers: Pressure injury location: sacral region Pressure injury stage: stage 3 Qualified Code(s): L89.153 - Pressure ulcer of sacral region, stage 3 Plan to address problem: Pt stable. It does not appear that she needs surgical debridement at this time. We will await the wound care nurse evaluation. I would start with medical debridement first and then reassess the wound. Please call with questions. (2) Decubitus ulcer of hip Current Visit: Yes Status: Acute Qualifiers: Pressure injury stage: stage 2 Laterality: left Qualified Code(s): L8 9.222 - Pressure ulcer of left hip, stage 2 Plan to address problem: Pt stable. No surgical intervention necessary. Needs offloading and standard wound care.
[2019-03-04] MEDS: SODIUM CHLORIDE FLUSH SYRINGE 10 ML IV SCH (10:22)
[2019-03-04] MEDS: SENOKOT PO SCH (10:22)
[2019-03-04] MEDS: PROTONIX PO SCH (10:22)
--- NOTE | 2019-03-04 16:06 | Progress Note ---
Assessment and Plan /Sepsis IV Cefepime and IV Vancomycin started Sepsis probably sec to infected sacral decub/pressure ulcer / HTN (hypertension) Continue antihypertensive /CVA (cerebral vascular accident) Supportive care, no acute issue / COPD (chronic obstructive pulmonary disease) DUo nebs when necessary / Dementia Supportive care / Diabetes SSI Coverage for now Check hemoglobin A1c / DVT prophylaxis Lovenox and GI prophylaxis Brief History: 79-year-old female with history of dementia, CVA with contractures, decubitus ulcers and status post PEG tube brought in by daughter for fever, altered sensorium and complaining of generalized pain. Radiological data: Chest x-ray IMPRESSION: Unremarkable AP chest. Hospitalist Physical exam: GENERAL: Elderly female lying on bed appeared to be in no discomfort, appears very sleepy. HEENT: Normocephalic. Atraumatic. No conjunctival congestion or icterus. Patient has moist mucous membranes. NECK: Supple. Trachea midline. CHEST/LUNGS: Clear to auscultated bilaterally, breathing nonlabored. No wheezes crackles or rhonchi. HEART/CARDIOVASCULAR: Regular in rate and rhythm. S1 and S2 positive. ABDOMEN: Abdomen is soft, nontender. Patient has normal bowel sounds. SKIN: There is no rash. Warm and dry. NEURO: Does not Follow command. MUSCULOSKELETAL: No joint effusion or tenderness. EXTRIMITY: No edema, no cyanosis or clubbing. PSYCH: Unable to assess. We will also available in the last few days Subjective Date of service: 03/04/19 Interval history: Patient seen and examined. Medical records and medication list reviewed. No acute event overnight noted by the RN. Patient unable to provide any detailed history Discussed plan of care at bedside with RN. Objective - Constitutional Vitals: Vital Signs - 12hr 03/04/19 03/04/19 03/04/19 07:48 07:54 11:58 Temperature 98.6 F 99.1 F Pulse Rate 115 H 114 H 115 H Respiratory 16 16 Rate Blood Pressure 120/61 114/54 O2 Sat by Pulse 97 100 Oximetry - Labs CBC & Chem 7: 03/05/19 04:44 03/05/19 04:44 Labs: Abnormal lab results 03/03/19 03/03/19 03/03/19 Range/Units 16:06 16:29 20:26 POC Glucose 141 H (70-105) Hemoglobin A1c (4-6) % Lactic Acid 2.90 H* 2.90 H* (0.7-2.0) mmol/L 03/04/19 03/04/19 03/04/19 Range/Units 01:02 02:12 06:17 POC Glucose 182 H 192 H (70-105) Hemoglobin A1c 6.6 H (4-6) % Lactic Acid (0.7-2.0) mmol/L 03/04/19 Range/Units 12:03 POC Glucose 198 H (70-105) Hemoglobin A1c (4-6) % Lactic Acid (0.7-2.0) mmol/L
[2019-03-05] MEDS: HumaLOG SUB-Q SCH ×4 (00:33→18:47)
[2019-03-05] MEDS: SENOKOT PO SCH ×2 (00:33→11:00)
[2019-03-05] MEDS: SODIUM CHLORIDE FLUSH SYRINGE 10 ML IV SCH ×2 (00:33→11:00)
[2019-03-05] MEDS: MAXIPIME/NS 2 GM/100 ML 2 GM/100 ML BAG IV SCH ×2 (00:34→13:29)
[2019-03-05] MEDS: VANCOMYCIN/NS 1 GM/250 ML 1 GM/250 ML BAG IV SCH (01:10)
[2019-03-05] MEDS: MORPHINE IV PRN (01:11)
[2019-03-05] MEDS: NACL 0.9% 1000 ML 1,000 ML IV SCH ×2 (03:02→18:49)
[2019-03-05 05:39] LABS: Hematocrit 29.3 % (30.3-42.9); Hemoglobin 9.5 gm/dl (10.1-14.3); Mean Corpuscular HGB Conc 33 % (30-34); Mean Corpuscular Volume 88 fl (79-97); Red Blood Count 3.34 M/mm3 (3.65-5.03); Red Cell Distribution Width 14.8 % (13.2-15.2)
[2019-03-05 05:42] LABS: Basophils # (Auto) 0.1 K/mm3 (0.0-0.1); Basophils % (Auto) 0.7 % (0.0-1.8); Eosinophils # (Auto) 0.4 K/mm3 (0.0-0.4); Eosinophils % (Auto) 2.8 % (0.0-4.3); Lymphocytes # (Auto) 2.3 K/mm3 (1.2-5.4); Monocytes # (Auto) 1.1 K/mm3 (0.0-0.8); Platelet Count 274 K/mm3 (140-440)
[2019-03-05 05:43] LABS: Albumin 1.9 g/dL (3.9-5); BUN/Creatinine Ratio 37; Blood Urea Nitrogen 11 mg/dL (7-17); Calcium 8.8 mg/dL (8.4-10.2); Hemolysis Index 138
[2019-03-05 06:11] LABS: Alanine Aminotransferase 13 units/L (7-56)
[2019-03-05] MEDS: PROTONIX PO SCH (11:00)
--- NOTE | 2019-03-05 14:48 | Progress Note ---
Assessment and Plan /Sepsis, suspected on admission IV Cefepime and IV Vancomycin started No sign of infection of sacral decub/pressure ulcer So far no clear source of etiology Blood culture, UA and chest x-ray normal Patient persistently having elevated white count and low-grade fever We'll consult ID /Acute on chronic encephalopathy, POA - likely from underlying sepsis vs SIRS or worsening dementia - cont supportive care, will get CT head if symptom worsen / HTN (hypertension) Continue antihypertensive /CVA (cerebral vascular accident) h/o Supportive care, no acute issue / COPD (chronic obstructive pulmonary disease) DUo nebs when necessary / Dementia Supportive care / Diabetes SSI Coverage for now 6.6 A1c / DVT prophylaxis Lovenox and GI prophylaxis Brief History: 79-year-old female with history of dementia, CVA with contractures, decubitus ulcers and status post PEG tube brought in by daughter for fever, altered sensorium and complaining of generalized pain. Radiological data: Chest x-ray IMPRESSION: Unremarkable AP chest. Hospitalist Physical exam: GENERAL: Elderly female lying on bed appeared to be in no discomfort, appears very lethargic. HEENT: Normocephalic. Atraumatic. No conjunctival congestion or icterus. Patient has moist mucous membranes. NECK: Supple. Trachea midline. CHEST/LUNGS: Clear to auscultated bilaterally, breathing nonlabored. No wheezes crackles or rhonchi. HEART/CARDIOVASCULAR: Regular in rate and rhythm. S1 and S2 positive. ABDOMEN: Abdomen is soft, nontender. Patient has normal bowel sounds. SKIN: There is no rash. Warm and dry. NEURO: Does not Follow command. MUSCULOSKELETAL: No joint effusion or tenderness. EXTRIMITY: No edema, no cyanosis or clubbing. PSYCH: Unable to assess. Subjective Date of service: 03/05/19 Interval history: Patient seen and examined. Medical records and medication list reviewed. No acute event overnight noted by the RN. Patient unable to provide any detailed history Continue to spike fever and has persistent elevated white count Discussed plan of care at bedside with RN. Objective - Constitutional Vitals: Vital Signs - 12hr 03/05/19 03/05/19 03/05/19 03:00 03:44 07:43 Temperature 98.7 F 99.1 F Pulse Rate 110 H 114 H Respiratory 22 14 Rate Respiratory 22 Rate [ Generalized] Blood Pressure 143/73 144/68 O2 Sat by Pulse 100 95 Oximetry - Labs CBC & Chem 7: 03/05/19 04:44 03/05/19 04:44 Labs: Abnormal lab results 03/04/19 03/05/19 03/05/19 Range/Units 17:38 00:17 04:44 WBC 15.6 H (4.5-11.0) K/mm3 RBC 3.34 L (3.65-5.03) M/mm3 Hgb 9.5 L (10.1-14.3) gm/dl Hct 29.3 L (30.3-42.9) % [place] # 1.1 H (0.0-0.8) K/mm3 Seg Neutrophils % 74.5 H (40.0-70.0) % Seg Neutrophils # 11.6 H (1.8-7.7) K/mm3 Creatinine (0.7-1.2) mg/dL Glucose (65-100) mg/dL POC Glucose 186 H 141 H (70-105) Albumin (3.9-5) g/dL 03/05/19 03/05/19 03/05/19 Range/Units 04:44 05:29 11:47 WBC (4.5-11.0) K/mm3 RBC (3.65-5.03) M/mm3 Hgb (10.1-14.3) gm/dl Hct (30.3-42.9) % [place] # (0.0-0.8) K/mm3 Seg Neutrophils % (40.0-70.0) % Seg Neutrophils # (1.8-7.7) K/mm3 Creatinine 0.3 L (0.7-1.2) mg/dL Glucose 129 H (65-100) mg/dL POC Glucose 132 H 156 H (70-105) Albumin 1.9 L (3.9-5) g/dL
--- NOTE | 2019-03-05 16:30 | Consultation ---
History of Present Illness - Reason for Consult Consult date: 03/05/19 leukocytosis w/o clear source Requesting physician: RENEE MARTÍNEZ - History of Present Illness 79 y/o female with history of CVA, Hypertension, Diabetes, Hyperlipidemia, Acute kidney injury, Failure to thrive, Acute metabolic encephalopathy, Severe malnutrition, Legs contractures, Decubitus ulcers, Dysphagia s/p G-tube placement admitted on 03/03/2019 due to several-day history of fever, altered mental status and generalized body aches. History is limited as patient is unable to provide due to AMS/dementia. In the ED, temp 100, HR 138, R20, BP 123/90, Os2 sat 94. WBC 14.2. Hg 10. Plat 491. Creat 0.5. Lactate 1.7-->2.9. LFTS normal. UA negative. Blood culture 03/03/2019 no growth. Urine culture 03/03/2019 10-100K. CXR negative. Review of Systems: Past History Past Medical History: COPD, diabetes, hypertension, stroke, other (dementia) Past Surgical History: hysterectomy, Other (breast reduction. Implant for bowel motility) Social history: other (lives in [facility] denies: smoking, alcohol abuse Family history: no significant family history Medications and Allergies Allergies Allergy/AdvReac Type Severity Reaction Status Date / Time prednisone Allergy Intermediate Swelling Verified 07/07/13 07:21 codeine Allergy Mild Itching Verified 07/07/13 07:21 Home Medications Medication Instructions Recorded Confirmed Last Taken Type Pantoprazole [Protonix TAB] 40 mg PO QDAY #30 tablet 05/01/18 03/03/19 Unknown Rx Sennosides Tab [Senokot] 8.6 mg PO Q12HR #60 tablet 01/01/19 03/03/19 Unknown Rx oxyCODONE /ACETAMINOPHEN [Percocet 1 tab PO Q6HR PRN #20 tablet 01/01/19 03/03/19 Unknown Rx 5/325] Active Meds: Active Medications Acetaminophen (Tylenol) 650 mg FEEDTUBE Q6H PRN PRN Reason: Pain, Mild (1-3) Last Admin: 03/04/19 02:11 Dose: 650 mg Documented by: Acetaminophen (Tylenol) 650 mg PO Q4H PRN PRN Reason: Pain MILD(1-3)/Fever >100.5/BLAIR Lipase/Protease/Amylase (Pancreaze Dr 10,500 Unit) 1 each FEEDTUBE PRN PRN PRN Reason: For Clogged Feeding Tube Sodium Chloride (Nacl 0.9% 1000 Ml) 1,000 mls @ 100 mls/hr IV DIRECT GUSTAVO Stop: 03/05/19 23:59 Last Admin: 03/05/19 03:02 Dose: 100 mls/hr Documented by: Cefepime HCl (Maxipime/Ns 2 Gm/100 Ml) 2 gm in 100 mls @ 200 mls/hr IV Q12H [facility]; Protocol Last Admin: 03/05/19 13:29 Dose: 200 mls/hr Documented by: Vancomycin HCl (Vancomycin/Ns 1 Gm/250 Ml) 1 gm in 250 mls @ 166.667 mls/hr IV Q24H [facility] Last Admin: 03/05/19 01:10 Dose: 166.667 mls/hr Documented by: Ibuprofen (Motrin) 600 mg PO Q6H PRN PRN Reason: Pain, Mild (1-3) Insulin Human Lispro (Humalog) 0 unit SUB-Q Q6HR [facility]; Protocol Last Admin: 03/05/19 13:29 Dose: 2 unit Documented by: Morphine Sulfate (Morphine) 2 mg IV Q4H PRN PRN Reason: Pain, Moderate (4-6) Last Admin: 03/05/19 01:11 Dose: 2 mg Documented by: Ondansetron HCl (Zofran) 4 mg IV Q8H PRN PRN Reason: Nausea And Vomiting Pantoprazole Sodium (Protonix) 40 mg PO QDAY [facility] Last Admin: 03/05/19 11:00 Dose: 40 mg Documented by: Senna (Senokot) 8.6 mg PO Q12HR [facility] Last Admin: 03/05/19 11:00 Dose: 8.6 mg Documented by: Simple Syrup (Simple Syrup) 15 ml FEEDTUBE PRN PRN PRN Reason: Hypoglycemia Simple Syrup (Simple Syrup) 30 ml FEEDTUBE PRN PRN PRN Reason: Hypoglycemia Sodium Bicarbonate (Sodium Bicarbonate) 325 mg FEEDTUBE PRN PRN PRN Reason: For Clogged Feeding Tube Sodium Chloride (Sodium Chloride Flush Syringe 10 Ml) 10 ml IV BID [facility] Last Admin: 03/05/19 11:00 Dose: 10 ml Documented by: Sodium Chloride (Sodium Chloride Flush Syringe 10 Ml) 10 ml IV PRN PRN PRN Reason: LINE FLUSH Physical Examination - Physical Exam Narrative exam: General appearance: Alert in NAD, non conversant Eyes: anicteric sclerae, moist conjunctivae; no lid-lag; PERRLA HENT: Atraumatic; oropharynx limited Lungs: CTA, with normal respiratory effort and no intercostal retractions CV: tachycardic ?cardiac friction rub Abdomen: Soft, non-tender; +G-tube Extremities: contracted, scattered superficial skin tears Psych: no agitated. Neuro: alert non verbal PER WOUND CARE: UNSTAGEABLE SACRAL PRESSURE INJURY. COVERED WITH THICK YELLOW SLOUGH. CENTER OF WOUND IS BOGGY. PERIWOUND SKIN IS DENUDED. DTI NOTED TO PERIWOUND SKIN. FOUL ODOR. MODERATE AMOUNT OF YELLOW DRAINAGE. THIS EXTENDS TO BOTH BUTTOCKS AND IS NOW A STAGE 2 IN THE BUTTOCK AREAS, BUT I SUSPECT THESE AREAS WILL EVOLVE AND DETERIORATE. ENTIRE AREA INCLUDING BUTTOCKS MEASURES 59S60L8.2. BILATERAL HEEL DTI - Constitutional Vitals: Vital Signs Temp Pulse Resp BP Pulse Ox 99.1 F 114 H 14 144/68 95 03/05/19 07:43 03/05/19 07:43 03/05/19 07:43 03/05/19 07:43 03/05/19 07:43 Temperature -Last 24 Hours Temperature 99.1 F Temperature 98.7 F Temperature 99.3 F Temperature 100.0 F Temperature 99.0 F Results - Labs CBC & Chem 7: 03/05/19 04:44 03/05/19 04:44 Labs: Abnormal lab results 03/04/19 03/05/19 03/05/19 Range/Units 17:38 00:17 04:44 WBC 15.6 H (4.5-11.0) K/mm3 RBC 3.34 L (3.65-5.03) M/mm3 Hgb 9.5 L (10.1-14.3) gm/dl Hct 29.3 L (30.3-42.9) % [place] # 1.1 H (0.0-0.8) K/mm3 Seg Neutrophils % 74.5 H (40.0-70.0) % Seg Neutrophils # 11.6 H (1.8-7.7) K/mm3 Creatinine (0.7-1.2) mg/dL Glucose (65-100) mg/dL POC Glucose 186 H 141 H (70-105) Albumin (3.9-5) g/dL 03/05/19 03/05/19 03/05/19 Range/Units 04:44 05:29 11:47 WBC (4.5-11.0) K/mm3 RBC (3.65-5.03) M/mm3 Hgb (10.1-14.3) gm/dl Hct (30.3-42.9) % [place] # (0.0-0.8) K/mm3 Seg Neutrophils % (40.0-70.0) % Seg Neutrophils # (1.8-7.7) K/mm3 Creatinine 0.3 L (0.7-1.2) mg/dL Glucose 129 H (65-100) mg/dL POC Glucose 132 H 156 H (70-105) Albumin 1.9 L (3.9-5) g/dL Assessment and Plan Cultures: Blood culture 03/03/2019 no growth. Urine culture 03/03/2019 10-100K. Assessment: 79 y/o female with history of CVA, Hypertension, Diabetes, Hyperlipidemia, Acute kidney injury, Failure to thrive, Acute metabolic encephalopathy, Severe malnutrition, Legs contractures, Decubitus ulcers, Dysphagia s/p G-tube placement admitted on 03/03/2019 due to several-day history of fever, altered mental status and generalized body aches: 1) SIRS v/s Sepsis: Present on admission, manifested by fever, tachycardia, leukocytosis, increased lactate. Etiology unclear. DDx PE/DVT, pericarditis (cardiac rub), sacral abscess UA negative. Blood culture 03/03/2019 no growth. Urine culture 03/03/2019 10- 100K. CXR negative. Blood culture 03/03/2019 no growth. 2) Sacral decubitus stage III ?underlying abscess or osteo 3) AMS Recommendations: - follow-up blood cultures, urine culture - obtain C-reactive protein (CRP) - TTE - CT abd / pelvis eval sacral abscess - LE US r/o DVTs - agree with surgical consult to eval and debride sacral decubitis as suspect abscess - continue cefepime and vancomycin for now Will follow. Amarilis Jaquez MD Infectious Diseases [employer] ([facility] M [phone] O [phone]
--- NOTE | 2019-03-05 23:04 | Cat Scan Report ---
PROCEDURE: CT ABDOMEN PELVIS W CON TECHNIQUE: Computerized axial tomography of the abdomen and pelvis was performed after the IV inject ion of iodinated nonionic contrast. CT DOSE LENGTH PRODUCT: 1907 mGycm HISTORY: sepsis no source sacral decutitus COMPARISONS: None . FINDINGS: Visualized lower thorax: No significant abnormality. Liver: Normal size and attenuation. Spleen: Normal size and attenuation. Gallbladder and biliary system: Normal. Pancreas: Normal. Adrenals: Normal. Kidneys: There are bilateral kidney stones. There is no hydronephrosis.. GI tract: There is a subcutaneous gastrostomy tube. There is no bowel obstruction, colitis or enteri tis. There is moderate stool in the sigmoid and rectum. The appendix is not identified. . Lymph nodes and mesentery: Normal. Vasculature: There is calcified plaque in the abdominal aorta. There is no aneurysm.. Bladder: Normal. Reproductive organs: There has been a hysterectomy.. Peritoneum: There is no ascites or free air, abscess or adenopathy.. Musculoskeletal structures: No significant abnormality. IMPRESSION: There are bilateral kidney stones. There is no hydronephrosis. There is a subcutaneous gastrostomy tube. There is no bowel obstruction, colitis or enteritis. There is moderate stool in the sigmoid and rectum. The appendix is not identified. . There has been a hysterectomy. There is no ascites or free air, abscess or adenopathy. This document is electronically signed by Zi Kennedy MD., Mar 05 2019 11:02:40 PM ET
[2019-03-06] MEDS: MAXIPIME/NS 2 GM/100 ML 2 GM/100 ML BAG IV SCH ×2 (00:26→14:33)
[2019-03-06] MEDS: SODIUM CHLORIDE FLUSH SYRINGE 10 ML IV SCH ×3 (00:27→21:56)
[2019-03-06] MEDS: HumaLOG SUB-Q SCH ×4 (00:27→18:35)
[2019-03-06] MEDS: SENOKOT PO SCH ×3 (00:28→21:56)
[2019-03-06] MEDS: VANCOMYCIN/NS 1 GM/250 ML 1 GM/250 ML BAG IV SCH (01:11)
[2019-03-06] MEDS: MORPHINE IV PRN (01:19)
[2019-03-06] MEDS: TYLENOL FEEDTUBE PRN (06:21)
[2019-03-06] MEDS: PROTONIX PO SCH (10:38)
--- NOTE | 2019-03-06 11:02 | Progress Note ---
Assessment and Plan Cultures: Blood culture 03/03/2019 no growth. Urine culture 03/03/2019 10-100K. Assessment: 79 y/o female with history of CVA, Hypertension, Diabetes, Hyperlipidemia, Acute kidney injury, Failure to thrive, Acute metabolic encephalopathy, Severe malnutrition, Legs contractures, Decubitus ulcers, Dysphagia s/p G-tube placement admitted on 03/03/2019 due to several-day history of fever, altered mental status and generalized body aches: 1) SIRS v/s Sepsis: Continuing. Leukocytosis trending up. Still tachycardia. No fevers. . DDx PE/DVT, pericarditis (cardiac rub), UA negative. Blood culture 03/03/2019 no growth. Urine culture 03/03/2019 10-100K. CXR negative. Blood culture 03/03/2019 no growth. CRP 10.0 2) Sacral decubitus stage III ?underlying abscess or osteo. Ct Abdomen and Pelvis: Bilateral Kidney stones, otherwise unremarkable. 3) AMS Recommendations: - follow-up blood cultures, urine culture - TTE - follow-up LE US r/o DVTs - follow-up surgical consult to eval and debride sacral decubitis as suspect abscess - continue cefepime and vancomycin , D3 Marizol Wagner NP [facility] M: [phone] O:[phone] Subjective Date of service: 03/06/19 Interval history: Patient seen and examined. No acute distress observed. No fevers. +contracted. Non-communicative. Daughter at bedside. Objective - Exam Narrative Exam: General appearance: Alert in NAD, non conversant Eyes: anicteric sclerae, moist conjunctivae; no lid-lag; PERRLA HENT: Atraumatic; oropharynx limited Lungs: CTA, with normal respiratory effort and no intercostal retractions CV: tachycardic ?cardiac friction rub Abdomen: Soft, non-tender; +G-tube Extremities: contracted, scattered superficial skin tears Psych: no agitated. Neuro: alert non verbal - Constitutional Vitals: Vital Signs Temp Pulse Resp BP Pulse Ox 99.0 F 118 H 16 154/88 98 03/06/19 07:20 03/06/19 07:20 03/06/19 07:20 03/06/19 07:20 03/06/19 07:20 Temperature -Last 24 Hours Temperature 99.0 F Temperature 97.4 F Temperature 98.5 F Temperature 98.2 F - Labs CBC & Chem 7: 03/06/19 11:55 03/05/19 04:44 Labs: Abnormal lab results 03/05/19 03/05/19 03/05/19 Range/Units 05:29 11:47 17:15 POC Glucose 132 H 156 H (70-105) C-Reactive Protein 10.00 H (0.00-1.30) mg/dL 03/05/19 03/05/19 03/06/19 Range/Units 18:50 23:50 05:27 POC Glucose 118 H 120 H 143 H (70-105) C-Reactive Protein (0.00-1.30) mg/dL
--- NOTE | 2019-03-06 11:34 | Vascular Lab Report ---
PROCEDURE: VL VENOUS DUPLEX LE BILAT TECHNIQUE: Grayscale, color flow and spectral waveform images were obtained of bilateral lower extre mities. HISTORY: eval for DVTs COMPARISON: None FINDINGS: Right: There is no deep venous thrombosis seen in the right lower extremity. Flow is demonstrated by color flow and spectral waveform imaging. There is appropriate wall compression and augmentation. Left: The left common femoral vein and proximal superficial femoral and are not well visualized due t o patient patient positioning and lack of cooperation. There is limited compressibility of the left p opliteal vein. There is some venous flow through the area. Findings suggest nonocclusive clot thrombu s in the popliteal vein. IMPRESSION: There is no evidence for DVT in right lower extremity. Limited evaluation of left lower extremity veins due to patient positioning and lack of cooperation. Left common femoral and proximal superficial femoral veins are not visualized; therefore DVT cannot b e excluded in these areas. There is some nonocclusive DVT in the left popliteal vein which may be chr onic. This document is electronically signed by Meggan Aldana MD., Mar 06 2019 11:32:24 AM ET
[2019-03-06 12:25] LABS: Hematocrit 25.8 % (30.3-42.9); Hemoglobin 8.3 gm/dl (10.1-14.3); Mean Corpuscular HGB Conc 32 % (30-34); Mean Corpuscular Volume 87 fl (79-97); Platelet Count 421 K/mm3 (140-440); Red Blood Count 2.96 M/mm3 (3.65-5.03); Red Cell Distribution Width 14.7 % (13.2-15.2)
[2019-03-06] MEDS: HALFPRIN EC PO SCH (13:30)
[2019-03-06] MEDS: LOVENOX SUB-Q SCH ×2 (13:31→21:55)
--- NOTE | 2019-03-06 15:21 | Progress Note ---
Assessment and Plan /SIRS, due to acute DVT sepsis suspected on admission IV Cefepime and IV Vancomycin started No sign of infection of sacral decub/pressure ulcer So far no clear source of etiology Blood culture, UA and chest x-ray normal Patient persistently having elevated white count and low-grade fever Lower extremity Doppler showed acute DVT, we'll stop antibiotics after discussing with ID /Acute lower extremity DVT - Discussed treatment option with the daughter - Discussed about the possible side effect from the chronic anticoagulation in this elderly frail demented lady - Discussed with daughter about the potential life-threatening development of pulmonary embolism respiratory arrest is lower extremity DVT doesn't get treated - - Daughter wanted to place the patient for comfort care with hospice - We will not proceed with any anticoagulation for this patient /Acute on chronic encephalopathy, POA - likely from underlying sepsis vs SIRS or worsening dementia - cont supportive care, / HTN (hypertension) Continue antihypertensive /CVA (cerebral vascular accident) h/o Supportive care, no acute issue / COPD (chronic obstructive pulmonary disease) DUo nebs when necessary / Dementia Supportive care / Diabetes SSI Coverage for now 6.6 A1c / DVT prophylaxis Lovenox and GI prophylaxis Disposition: Home with hospice Brief History: 79-year-old female with history of dementia, CVA with contractures, decubitus ulcers and status post PEG tube brought in by daughter for fever, altered sensorium and complaining of generalized pain. Radiological data: Chest x-ray IMPRESSION: Unremarkable AP chest. Hospitalist Physical exam: GENERAL: Elderly female lying on bed appeared to be in no discomfort, appears very lethargic. HEENT: Normocephalic. Atraumatic. No conjunctival congestion or icterus. Patient has moist mucous membranes. NECK: Supple. Trachea midline. CHEST/LUNGS: Clear to auscultated bilaterally, breathing nonlabored. No wheezes crackles or rhonchi. HEART/CARDIOVASCULAR: Regular in rate and rhythm. S1 and S2 positive. ABDOMEN: Abdomen is soft, nontender. Patient has normal bowel sounds. SKIN: There is no rash. Warm and dry. NEURO: Does not Follow command. MUSCULOSKELETAL: No joint effusion or tenderness. EXTRIMITY: No edema, no cyanosis or clubbing. PSYCH: Unable to assess. Subjective Date of service: 03/06/19 Interval history: Patient seen and examined. Medical records and medication list reviewed. No acute event overnight noted by the RN. Patient unable to provide any detailed history Continue to spike fever and has persistent elevated white count - LLE doppler positive for DVT Discussed plan of care at bedside with daughter and she expressed that she does not want AC for acute DVT and considering hospice Objective - Constitutional Vitals: Vital Signs - 12hr 03/06/19 03/06/19 03/06/19 04:25 06:21 07:20 Temperature 97.4 F L 99.0 F Pulse Rate 107 H 118 H Respiratory 20 20 16 Rate Blood Pressure 118/57 154/88 O2 Sat by Pulse 99 98 Oximetry 03/06/19 12:33 Temperature 98.4 F Pulse Rate 88 Respiratory 16 Rate Blood Pressure 134/61 O2 Sat by Pulse 100 Oximetry - Labs CBC & Chem 7: 03/06/19 11:55 03/05/19 04:44 Labs: Abnormal lab results 03/05/19 03/05/19 03/05/19 Range/Units 17:15 18:50 23:50 RBC (3.65-5.03) M/mm3 Hgb (10.1-14.3) gm/dl Hct (30.3-42.9) % POC Glucose 118 H 120 H (70-105) C-Reactive Protein 10.00 H (0.00-1.30) mg/dL 03/06/19 03/06/19 03/06/19 Range/Units 05:27 11:45 11:55 RBC 2.96 L (3.65-5.03) M/mm3 Hgb 8.3 L (10.1-14.3) gm/dl Hct 25.8 L (30.3-42.9) % POC Glucose 143 H 116 H (70-105) C-Reactive Protein (0.00-1.30) mg/dL
[2019-03-07] MEDS: HumaLOG SUB-Q SCH ×3 (00:36→16:49)
[2019-03-07] MEDS: MAXIPIME/NS 2 GM/100 ML 2 GM/100 ML BAG IV SCH (00:50)
[2019-03-07] MEDS: VANCOMYCIN/NS 1 GM/250 ML 1 GM/250 ML BAG IV SCH (01:54)
[2019-03-07] MEDS: LOVENOX SUB-Q SCH (09:34)
[2019-03-07] MEDS: SENOKOT PO SCH (09:34)
[2019-03-07] MEDS: HALFPRIN EC PO SCH (09:34)
[2019-03-07] MEDS: PROTONIX PO SCH (09:34)
--- NOTE | 2019-03-07 10:01 | Progress Note ---
Assessment and Plan Cultures: Blood culture 03/03/2019 no growth. Urine culture 03/03/2019 10-100K. Assessment: 79 y/o female with history of CVA, Hypertension, Diabetes, Hyperlipidemia, Acute kidney injury, Failure to thrive, Acute metabolic encephalopathy, Severe malnutrition, Legs contractures, Decubitus ulcers, Dysphagia s/p G-tube placement admitted on 03/03/2019 due to several-day history of fever, altered mental status and generalized body aches: 1) SIRS v/s Sepsis: Improved. Leukocytosis trending down. DDx PE/DVT, pericarditis (cardiac rub), UA negative. Blood culture 03/03/2019 no growth. Urine culture 03/03/2019 10-100K. CXR negative. Blood culture 03/03/2019 no growth. CRP 10.0. TTE no valvular vegetation. No DVT RLE. Limited eval of LLE due to patient positioning, cannot be excluded. 2) Sacral decubitus stage III ?underlying abscess or osteo. Ct Abdomen and Pelvis: Bilateral Kidney stones, otherwise unremarkable. 3) AMS Recommendations: - discontinue cefepime and vancomycin -monitor off antibiotics -Patient going home on Hospice care per case management. ID is signing off [facility] M: [phone] O:[phone] Subjective Date of service: 03/07/19 Interval history: Patient seen and examined. No acute distress observed. No fevers. +contracted. Non-communicative. Daughter at bedside. Objective - Exam Narrative Exam: General appearance: Asleep. Difficult to arouse. Eyes: anicteric sclerae, moist conjunctivae; no lid-lag; PERRLA HENT: Atraumatic; oropharynx limited Lungs: CTA, with normal respiratory effort and no intercostal retractions CV: tachycardic ?cardiac friction rub Abdomen: Soft, non-tender; +G-tube Extremities: contracted, scattered superficial skin tears Psych: somnolent Neuro: somnolent - Constitutional Vitals: Vital Signs Temp Pulse Resp BP Pulse Ox 97.8 F 95 H 18 140/62 99 03/07/19 09:11 03/07/19 09:11 03/07/19 09:11 03/07/19 09:11 03/07/19 09:11 Temperature -Last 24 Hours Temperature 97.8 F Temperature 98.3 F Temperature 98.2 F Temperature 98.1 F Temperature 98.4 F - Labs CBC & Chem 7: 03/06/19 11:55 03/05/19 04:44 Labs: Abnormal lab results 03/06/19 03/06/19 03/06/19 Range/Units 11:45 11:55 18:40 RBC 2.96 L (3.65-5.03) M/mm3 Hgb 8.3 L (10.1-14.3) gm/dl Hct 25.8 L (30.3-42.9) % POC Glucose 116 H 122 H (70-105) 03/07/19 03/07/19 Range/Units 00:33 05:54 RBC (3.65-5.03) M/mm3 Hgb (10.1-14.3) gm/dl Hct (30.3-42.9) % POC Glucose 140 H 144 H (70-105)
[2019-03-07] MEDS: SODIUM CHLORIDE FLUSH SYRINGE 10 ML IV SCH (10:15)
[2019-03-07 14:30] VITALS: BP 142/58
--- NOTE | 2019-03-07 14:49 | Discharge Summary ---
Providers - Providers Date of Admission: 03/03/19 13:04 Date of discharge: 03/07/19 Attending physician: RENEE MARTÍNEZ 03/03/19 13:05 Consult to Physician [CONS] Stat Comment: Consulting Provider: BRIANA ABRAHAM Physician Instructions: Reason For Exam: decubitus ulcer 03/03/19 15:14 Consult to Wound/ET Nurse [CONS] Urgent Reason For Exam: wound eval 03/04/19 00:48 Consult to Dietitian/Nutrition [CONS] Routine Physician Instructions: Reason For Exam: Reason for Consult: Write/Manage Tube Feeding 03/04/19 00:49 Consult to Dietitian/Nutrition [CONS] Routine Physician Instructions: Assess nutrtn needs, initiate, modify, manage TF Reason For Exam: Reason for Consult: Write/Manage Tube Feeding Reason for Consult: Write/Manage Tube Feeding 03/04/19 03:47 Consult to Dietitian/Nutrition [CONS] Routine Physician Instructions: Assess nutrtn needs, initiate, modify, manage TF Reason For Exam: Reason for Consult: Write/Manage Tube Feeding Reason for Consult: Write/Manage Tube Feeding 03/05/19 12:09 Consult to Physician [CONS] Routine Comment: Consulting Provider: NADIYA BRANDT Physician Instructions: Reason For Exam: leukocytosis w/o source of infection [facility] Hospitalization Condition: Stable Hospital course: Brief History: 79-year-old female with history of dementia, CVA with contractures, decubitus ulcers and status post PEG tube brought in by daughter for fever, altered sensorium and complaining of generalized pain. Patient noted to have multiple pressure sure ulcers. Initially suspected infected decubitus ulcer, placed on empiric antibiotics. Surgery was consulted for possible I&D. General surgery evaluated the patient but did not recommend any further intervention rather than wound care. ID was consulted for persistent leukocytosis and low-grade fever. Patient was initiated on to feeding diet which she was tolerating. Lower extremity Doppler obtained which showed left lower extremity popliteal vein DVT. Patient was placed on therapeutic dose of Lovenox. Discussion made with the daughter for long-term anticoagulation which daughter refused considering the possible side effects of long-term anticoagulation based on her age, dementia and bedridden stage. Family then decided to to change the patient's CODE STATUS to DO NOT RESUSCITATE and set up home hospice. Her antibiotic and anticoagulation was discontinued. Patient was then discharged home with hospice setup in stable condition. Plan of care was discussed with the patient daughter and with the case management. Patient daughter verbalized understanding. Radiological data: Chest x-ray: Unremarkable AP chest. Lower extremity venous Doppler: There is no evidence for DVT in right lower extremity. Limited evaluation of left lower extremity veins due to patient positioning and lack of cooperation. Left common femoral and proximal superficial femoral veins are not visualized; therefore DVT cannot be excluded in these areas. There is some nonocclusive DVT in the left popliteal vein which may be chronic. CT abdomen and pelvis: There are bilateral kidney stones. There is no hydronephrosis. There is a subcutaneous gastrostomy tube. There is no bowel obstruction, colitis or enteritis. There is moderate stool in the sigmoid and rectum. The appendix is not identified. . There has been a hysterectomy. There is no ascites or free air, abscess or adenopathy. Discharge diagnosis and management /SIRS, due to left lower extremity DVT sepsis suspected on admission with possible sacral abscess IV Cefepime and IV Vancomycin started No sign of infection of sacral decub/pressure ulcer, general surgeon consulted and ruled out any possible abscesses So far no clear source of etiology Blood culture, UA and chest x-ray normal Patient persistently having elevated white count and low-grade fever Lower extremity Doppler showed acute DVT, stopped antibiotics after discussing with ID Family decided for hospice care /Acute versus chronic lower extremity DVT - Discussed treatment option with the daughter - Discussed about the possible side effect from the chronic anticoagulation in this elderly frail demented lady - Discussed with daughter about the potential life-threatening development of pulmonary embolism respiratory arrest is lower extremity DVT doesn't get treated - - Daughter wanted to place the patient for comfort care with hospice - We will not proceed with any anticoagulation for this patient /Acute on chronic encephalopathy, POA - likely from underlying sepsis vs SIRS or worsening dementia - cont supportive care, / HTN (hypertension) Continue antihypertensive /CVA (cerebral vascular accident) h/o Supportive care, no acute issue / COPD (chronic obstructive pulmonary disease) DUo nebs when necessary / Dementia Supportive care / Diabetes SSI Coverage for now 6.6 A1c / DVT prophylaxis Lovenox and GI prophylaxis Disposition: Home with hospice Hospitalist Physical exam: GENERAL: Elderly female lying on bed appeared to be in no discomfort, appears very lethargic. HEENT: Normocephalic. Atraumatic. No conjunctival congestion or icterus. Patient has moist mucous membranes. NECK: Supple. Trachea midline. CHEST/LUNGS: Clear to auscultated bilaterally, breathing nonlabored. No wheezes crackles or rhonchi. HEART/CARDIOVASCULAR: Regular in rate and rhythm. S1 and S2 positive. ABDOMEN: Abdomen is soft, nontender. Patient has normal bowel sounds. SKIN: There is no rash. Warm and dry. NEURO: Does not Follow command. MUSCULOSKELETAL: No joint effusion or tenderness. EXTRIMITY: No edema, no cyanosis or clubbing. PSYCH: Unable to assess. Disposition: DC-50 TO HOSPICE (HOME) Time spent for discharge: 35 minutes Core Measure Documentation - Palliative Care Palliative Care/ Comfort Measures: Hospice Care - Core Measures Any of the following diagnoses?: history only Exam - Constitutional Vitals: Temp Pulse Resp BP Pulse Ox 97.7 F 94 H 16 142/58 99 03/07/19 14:29 03/07/19 14:29 03/07/19 14:29 03/07/19 14:29 03/07/19 14:29 Plan Activity: other (bedrest) Diet: other (Tube feeding diet) Wound: per wound nurse instructions Follow up with: JIMENA MCGRATH MD [Primary Care Provider] - 3-5 Days
[2019-03-07] MEDS ORDERED: LOVENOX SUB-Q SCH (22:00)
== END 2019-03-07 18:41 | disposition hospice, home (50) | DRG 871 ==
LOC: ED 10:44 → 4A 13:04
PROVIDERS: ADMIT Internal Medicine; ATTEND Internal Medicine
DX: A41.9 Sepsis, unspecified organism (principal); L89.153 Pressure ulcer of sacral region, stage 3; G93.41 Metabolic encephalopathy; I82.432 Acute embolism and thrombosis of left popliteal vein; L02.91 Cutaneous abscess, unspecified; F03.90 Unspecified dementia, unspecified severity, without behavioral disturbance, psychotic disturbance, mood disturbance, and anxiety; L89.222 Pressure ulcer of left hip, stage 2; Z66 Do not resuscitate; Z51.5 Encounter for palliative care; K21.9 Gastro-esophageal reflux disease without esophagitis; E11.9 Type 2 diabetes mellitus without complications; J44.9 Chronic obstructive pulmonary disease, unspecified; Z86.73 Personal history of transient ischemic attack (TIA), and cerebral infarction without residual deficits; Z90.710 Acquired absence of both cervix and uterus; Z82.49 Family history of ischemic heart disease and other diseases of the circulatory system; Z88.5 Allergy status to narcotic agent; Z88.8 Allergy status to other drugs, medicaments and biological substances; Z74.01 Bed confinement status; Z93.1 Gastrostomy status; Z79.84 Long term (current) use of oral hypoglycemic drugs
CPT/HCPCS: 36415; 71045; 74177; 80053; 81001; 82140; 82805; 82962; 83036; 85025; 85027; 85610; 86140; 87040; 87086; 93005; 93010; 93306; 93970; 96365; G0378; A9270-GY; J0692; J1650; J1815; J2270; J2543; J3370; J7030; J7040; J7050; Q9967